=== PATIENT | male | born 1940 | race Caucasian/White ===

== ENCOUNTER 2018-11-25 12:36 | Emergency (ER) | payer MEDICARE ==
[~2018-11-25] VITALS: Ht 177.8 cm; Wt 115.9 kg
[~2018-11-25 12:36] MED LIST: ALBU6.7H9 INH; ASPI-1265 PO; ATOR40TA PO; CA C1TAB69 PO; CARV-50 PO; CITA20TA28 PO; LOSA1TAB41 PO; METF500T PO; NOR5T PO; [UNRECOGNIZED DRUG - CODE] PO
[2018-11-25] MEDS ORDERED: normal saline 1000ML IV soln IVB ONE (13:15)
[2018-11-25 13:52] LABS: CLARITY,URINE CLEAR (Clear); COLOR,URINE YELLOW (Yellow); GLUCOSE, URINE NEGATIVE (Neg); KETONES,URINE NEGATIVE (Neg); LEUKOCYTE ESTERASE ,URINE NEGATIVE (Neg); NITRITES, URINE NEGATIVE (Neg); OCCULT BLOOD,URINE NEGATIVE (Neg); PROTEIN,URINE NEGATIVE (Neg); UROBILINOGEN,URINE 0.2 E.U/dL (0.2-1.0)
[2018-11-25 13:53] LABS: UA COLLECTION TYPE URINAL
[2018-11-25 13:55] LABS: BASOPHILS % (AUTO) 0.5 % (0-1); EOSINOPHILS # (AUTO) 0.2 X10'3 (0-0.9); EOSINOPHILS % (AUTO) 3.5 % (0-6); HEMATOCRIT 44.8 % (42.0-52.0); LYMPHOCYTES # (AUTO) 1.5 X10'3 (1.1-4.8); MEAN CORPUSCULAR HEMOGLOBIN 28.7 PG (27.0-31.0); MEAN CORPUSCULAR HGB CONC 33.4 g/dL (33.0-36.5); MEAN CORPUSCULAR VOLUME 85.9 FL (78-98); MEAN PLATELET VOLUME 7.8 FL (7.4-10.4); MONOCYTES # (AUTO) 0.5 X10'3 (0-0.9); MONOCYTES % (AUTO) 8.3 % (2-12); NEUTROPHILS # (AUTO) 4.1 X10'3 (1.8-7.7); NEUTROPHILS % (AUTO) 64.7 % (42-75); PLATELET COUNT 181 X10'3 (140-440); RED BLOOD COUNT 5.21 X10'6 (4.70-6.10); WHITE BLOOD COUNT 6.4 X10'3 (4.5-11.0)
[2018-11-25 14:18] LABS: URINE AMPHETAMINE SCREEN NEGATIVE (Neg); URINE BARBITUATE SCREEN NEGATIVE (Neg); URINE BENZODIAZEPINES SCREEN NEGATIVE (Neg); URINE CANNABINOID SCREEN NEGATIVE (Neg); URINE COCAINE SCREEN NEGATIVE (Neg); URINE METHADONE SCREEN NEGATIVE (Neg); URINE OPIATE SCREEN NEGATIVE (Neg); URINE PHENCYCLIDINE SCREEN NEGATIVE (Neg)
[2018-11-25 14:19] LABS: ALANINE AMINOTRANSFERASE 30 U/L (12-78); ALBUMIN 3.8 G/DL (3.4-5.0); ALBUMIN/GLOBULIN RATIO 1.1 (1.1-1.5); ALKALINE PHOSPHATASE 70 IU/L (46-116); ANION GAP 12 (8-16); ASPARTATE AMINO TRANSFERASE 8 U/L (10-37); BILIRUBIN,TOTAL 0.4 MG/DL (0.1-1.0); BLOOD UREA NITROGEN 19 MG/DL (7-18); BUN/CREATININE RATIO 14.8 (5.4-32.0); CALCIUM 8.5 MG/DL (8.5-10.1); CHLORIDE 105 MMOL/L (99-107); CREATININE 1.28 MG/DL (0.60-1.10); GLUCOSE 164 MG/DL (70-104); POTASSIUM 4.2 MMOL/L (3.5-5.1); SODIUM 142 MMOL/L (135-145); TOTAL PROTEIN 7.3 G/DL (6.4-8.2); eGFR 54 ML/MIN
[2018-11-25 14:30] LABS: ETHANOL < 0.010 GM/DL (0.0-0.010); MAGNESIUM 1.8 MG/DL (1.5-2.4); PHOSPHORUS 3.4 MG/DL (2.3-4.5)
[2018-11-25] MEDS ORDERED: CARV-50 PO (15:55)
[2018-11-25] MEDS ORDERED: EFF25T PO (15:55)
[2018-11-25] MEDS ORDERED: ALPR-624 PO (15:55)
[2018-11-25] MEDS ORDERED: LOSA25TA96 PO (15:55)
--- NOTE | 2018-11-25 16:27 | NUR ---
Spoke with pts son Reji. Pt had tried to call his son earlier and son had missed call. Report from his son whom lives in [place] reports pt has been having increase in confusion and states that pt tolled him approx 6-8 months ago that [facility] begining onset of [facility]. Family relates that pt has no family here in this area and pt was previously living with other family but pt and family had a "fall out" and pt then had moved over here. Pts son Reji left his phone number:
--- NOTE | 2018-11-25 19:26 | NUR ---
assumed care of pt resting comfortably on his back all vss no s/s of distress . COntente poc updated. pt brother is Noel Ferrell [facility] at [phone] mobile [phone]
--- NOTE | 2018-11-25 20:12 | NUR ---
The patient moved from 14 to overflow room 21. He ambulated to room accompanied by Benoit OLVERA
[2018-11-25] MEDS ORDERED: atorvastatin 20mg tablet PO SCH (21:00)
[2018-11-25] MEDS ORDERED: ALPRAZolam 0.5mg tablet PO PRN (21:00)
--- NOTE | 2018-11-25 21:38 | NUR ---
Pt's wallet given to registration to place in safe.
--- NOTE | 2018-11-25 21:57 | NUR ---
The patient is sleeping on his right side. Breathing even and unlabored. No s/s of distress.
--- NOTE | 2018-11-26 00:24 | NUR ---
The patient woke to get a drink of water. He's laying down now with covers up to his chin.
--- NOTE | 2018-11-26 02:11 | NUR ---
The patient is lying on his left side. His eyes are closed and he appears to be asleep. Breathing is not labored. No s/s of distress.
--- NOTE | 2018-11-26 04:14 | NUR ---
Patient continues to sleep. Breathing unlabored. No s/s of distress.
[2018-11-26 05:40] VITALS: BP 175/107
--- NOTE | 2018-11-26 05:51 | NUR ---
The patient is sleeping on his left side.
--- NOTE | 2018-11-26 06:34 | NUR ---
Patient sleeping on right side. No distress observed. Continue to monitor.
[2018-11-26] MEDS ORDERED: carVEDilol 12.5mg tablet PO SCH (08:00)
[2018-11-26] MEDS ORDERED: [UNRECOGNIZED DRUG - REMARK] PO SCH (08:00)
[2018-11-26] MEDS ORDERED: aspirin 81mg tab.chew PO SCH (08:00)
[2018-11-26] MEDS ORDERED: losartan 50mg tablet PO SCH (08:00)
[2018-11-26] MEDS ORDERED: cyanocobalamin 500mcg tablet PO SCH (08:00)
[2018-11-26] MEDS ORDERED: venlafaxine XR 75mg capsule (Q24H) PO SCH (08:00)
[2018-11-26] MEDS ORDERED: metFORMIN 500mg tablet PO SCH (08:00)
--- NOTE | 2018-11-26 08:20 | NUR ---
RN awoken patient so he could eat breakfast and RN gave patient his medication. No distress observed. Patient sitting up and eating breakfast. Continue to monitor.
[2018-11-26] MEDS ORDERED: albuterol 2.5 MG/3 ML nebule NEB SCH (09:00)
--- NOTE | 2018-11-26 09:55 | NUR ---
Patient sleeping on right side. No distress observed. Continue to monitor.
--- NOTE | 2018-11-26 10:13 | NUR ---
Kathie from [facility] speaking with patient. Continue to monitor.
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
--- NOTE | 2018-11-26 11:55 | NUR ---
Patient sleeping on right side. No distress observed. Continue to monitor.
--- NOTE | 2018-11-26 13:55 | NUR ---
Patient's friend is taking patient home after he picks up his daughter from [employer]. Patient hanging out at nurses station. Patient is pleasant. No distress observed. Continue to monitor.
== END 2018-11-26 14:33 | disposition home or self-care (01) ==
LOC: ER 12:38
DX: F29 Unspecified psychosis not due to a substance or known physiological condition (principal); F41.9 Anxiety disorder, unspecified; M25.562 Pain in left knee; E78.00 Pure hypercholesterolemia, unspecified; I10 Essential (primary) hypertension; E11.9 Type 2 diabetes mellitus without complications; Z79.899 Other long term (current) drug therapy; Z79.82 Long term (current) use of aspirin; Z79.84 Long term (current) use of oral hypoglycemic drugs; Z86.79 Personal history of other diseases of the circulatory system; Z95.0 Presence of cardiac pacemaker; Z60.2 Problems related to living alone; Z87.09 Personal history of other diseases of the respiratory system
CPT/HCPCS: 36415; 70450; 80053; 80305; 80320; 81003; 83735; 84100; 84443; 84484; 85025; 85610; 93005; 99284

== ENCOUNTER 2018-12-21 05:46 | Emergency (ER) | payer MEDICARE ==
[~2018-12-21] VITALS: Ht 177.8 cm; Wt 120.0 kg
[~2018-12-21 05:46] MED LIST changes: +ALPR-624 PO; -CITA20TA28 PO; +EFF25T PO; -LOSA1TAB41 PO; +LOSA25TA96 PO; -NOR5T PO
[2018-12-21] MEDS ORDERED: nitroGLYCERIN 0.4mg/hour patch TD ONE (05:55)
[2018-12-21 06:15] LABS: BASOPHILS # (AUTO) 0.1 X10'3 (0-0.2); BASOPHILS % (AUTO) 0.8 % (0-1); EOSINOPHILS # (AUTO) 0.3 X10'3 (0-0.9); EOSINOPHILS % (AUTO) 4.1 % (0-6); HEMATOCRIT 44.6 % (42.0-52.0); HEMOGLOBIN 15.1 g/dl (14.0-17.9); LYMPHOCYTES # (AUTO) 1.7 X10'3 (1.1-4.8); LYMPHOCYTES % (AUTO) 27.6 % (21-51); MEAN CORPUSCULAR HEMOGLOBIN 28.9 PG (27.0-31.0); MEAN CORPUSCULAR HGB CONC 33.9 g/dL (33.0-36.5); MEAN CORPUSCULAR VOLUME 85.3 FL (78-98); MEAN PLATELET VOLUME 7.7 FL (7.4-10.4); MONOCYTES # (AUTO) 0.6 X10'3 (0-0.9); MONOCYTES % (AUTO) 9.3 % (2-12); NEUTROPHILS # (AUTO) 3.7 X10'3 (1.8-7.7); NEUTROPHILS % (AUTO) 58.2 % (42-75); PLATELET COUNT 208 X10'3 (140-440); RED BLOOD COUNT 5.22 X10'6 (4.70-6.10); WHITE BLOOD COUNT 6.3 X10'3 (4.5-11.0)
[2018-12-21 06:27] LABS: PARTIAL THROMBOPLASTIN TIME 27 SECONDS (22-32)
[2018-12-21 06:30] LABS: ALANINE AMINOTRANSFERASE 26 U/L (12-78); ALBUMIN 3.5 G/DL (3.4-5.0); ALBUMIN/GLOBULIN RATIO 0.9 (1.1-1.5); ALKALINE PHOSPHATASE 74 IU/L (46-116); ANION GAP 10 (8-16); ASPARTATE AMINO TRANSFERASE 15 U/L (10-37); BILIRUBIN,TOTAL 0.3 MG/DL (0.1-1.0); BLOOD UREA NITROGEN 16 MG/DL (7-18); CALCIUM 8.9 MG/DL (8.5-10.1); CHLORIDE 105 MMOL/L (99-107); CREATININE 1.45 MG/DL (0.60-1.10); GLUCOSE 161 MG/DL (70-104); POTASSIUM 3.9 MMOL/L (3.5-5.1); SODIUM 139 MMOL/L (135-145); TOTAL CARBON DIOXIDE 24.4 MMOL/L (24-32); TOTAL PROTEIN 7.2 G/DL (6.4-8.2); eGFR 47 ML/MIN
[2018-12-21 07:06] LABS: CLARITY,URINE CLEAR (Clear); COLOR,URINE YELLOW (Yellow); GLUCOSE, URINE NEGATIVE (Neg); KETONES,URINE NEGATIVE (Neg); LEUKOCYTE ESTERASE ,URINE NEGATIVE (Neg); NITRITES, URINE NEGATIVE (Neg); OCCULT BLOOD,URINE NEGATIVE (Neg); PROTEIN,URINE NEGATIVE (Neg); UA COLLECTION TYPE URINAL; UROBILINOGEN,URINE 0.2 E.U/dL (0.2-1.0)
[2018-12-21] MEDS ORDERED: meclizine 12.5mg tablet PO STA (07:35)
[2018-12-21] MEDS ORDERED: MECL-111 PO ×2 (07:38→07:41)
[2018-12-21 07:46] VITALS: BP 147/115
== END 2018-12-21 07:47 | disposition home or self-care (01) ==
LOC: ER 05:47
DX: H81.12 Benign paroxysmal vertigo, left ear (principal); E78.00 Pure hypercholesterolemia, unspecified; I10 Essential (primary) hypertension; I25.2 Old myocardial infarction; E11.9 Type 2 diabetes mellitus without complications; F41.9 Anxiety disorder, unspecified; Z95.0 Presence of cardiac pacemaker; Z79.82 Long term (current) use of aspirin; Z79.84 Long term (current) use of oral hypoglycemic drugs; Z79.899 Other long term (current) drug therapy; Z79.01 Long term (current) use of anticoagulants
CPT/HCPCS: 36415; 71045; 80053; 81003; 82948; 83735; 83880; 84484; 85025; 85610; 85730; 93005; 99284; J8597

== ENCOUNTER 2018-12-24 22:17 | Emergency (ER) | payer MEDICARE ==
[~2018-12-24] VITALS: Ht 177.8 cm; Wt 118.1 kg
[~2018-12-24 22:17] MED LIST changes: +MECL-111 PO
[2018-12-24] MEDS ORDERED: DIAZ2TAB PO (22:43)
[2018-12-24 23:11] VITALS: BP 138/67
== END 2018-12-24 23:00 | disposition home or self-care (01) ==
LOC: ER 22:18
DX: H81.10 Benign paroxysmal vertigo, unspecified ear (principal); E78.00 Pure hypercholesterolemia, unspecified; I10 Essential (primary) hypertension; I25.2 Old myocardial infarction; E11.9 Type 2 diabetes mellitus without complications; F41.9 Anxiety disorder, unspecified; Z79.899 Other long term (current) drug therapy; Z79.82 Long term (current) use of aspirin; Z95.0 Presence of cardiac pacemaker; Z60.2 Problems related to living alone
CPT/HCPCS: 82948; 99283

== ENCOUNTER 2018-12-27 09:40 | Emergency (ER) | payer MEDICARE ==
[~2018-12-27] VITALS: Ht 177.8 cm; Wt 118.2 kg
[~2018-12-27 09:40] MED LIST changes: +DIAZ2TAB PO
[2018-12-27 10:23] LABS: BASOPHILS % (AUTO) 0.5 % (0-1); EOSINOPHILS # (AUTO) 0.2 X10'3 (0-0.9); EOSINOPHILS % (AUTO) 3.5 % (0-6); HEMATOCRIT 45.3 % (42.0-52.0); HEMOGLOBIN 15.7 g/dl (14.0-17.9); LYMPHOCYTES # (AUTO) 1.5 X10'3 (1.1-4.8); LYMPHOCYTES % (AUTO) 23.3 % (21-51); MEAN CORPUSCULAR HEMOGLOBIN 29.4 PG (27.0-31.0); MEAN CORPUSCULAR HGB CONC 34.6 g/dL (33.0-36.5); MEAN CORPUSCULAR VOLUME 84.9 FL (78-98); MEAN PLATELET VOLUME 7.7 FL (7.4-10.4); MONOCYTES # (AUTO) 0.4 X10'3 (0-0.9); MONOCYTES % (AUTO) 6.5 % (2-12); NEUTROPHILS # (AUTO) 4.3 X10'3 (1.8-7.7); NEUTROPHILS % (AUTO) 66.2 % (42-75); PLATELET COUNT 195 X10'3 (140-440); RED BLOOD COUNT 5.33 X10'6 (4.70-6.10); RED CELL DISTRIBUTION WIDTH 14.2 % (11.5-14.5); WHITE BLOOD COUNT 6.5 X10'3 (4.5-11.0)
[2018-12-27 10:37] LABS: ALANINE AMINOTRANSFERASE 27 U/L (12-78); ALBUMIN 3.7 G/DL (3.4-5.0); ALKALINE PHOSPHATASE 72 IU/L (46-116); ANION GAP 7 (8-16); ASPARTATE AMINO TRANSFERASE 15 U/L (10-37); BILIRUBIN,TOTAL 0.4 MG/DL (0.1-1.0); BLOOD UREA NITROGEN 17 MG/DL (7-18); BUN/CREATININE RATIO 13.8 (5.4-32.0); CALCIUM 8.7 MG/DL (8.5-10.1); CHLORIDE 104 MMOL/L (99-107); CREATININE 1.23 MG/DL (0.60-1.10); GLUCOSE 165 MG/DL (70-104); POTASSIUM 4.1 MMOL/L (3.5-5.1); SODIUM 139 MMOL/L (135-145); TOTAL CARBON DIOXIDE 28.3 MMOL/L (24-32); TOTAL PROTEIN 7.5 G/DL (6.4-8.2); eGFR 57 ML/MIN
[2018-12-27 10:43] LABS: ETHANOL < 0.010 GM/DL (0.0-0.010)
--- NOTE | 2018-12-27 10:53 | NUR ---
pt is out having a ct
[2018-12-27] MEDS ORDERED: ROSU10TA2 PO (11:18)
[2018-12-27] MEDS ORDERED: METF500T PO (11:18)
[2018-12-27] MEDS ORDERED: MIRT7.5T11 PO (11:18)
[2018-12-27 11:29] LABS: URINE AMPHETAMINE SCREEN NEGATIVE (Neg); URINE BARBITUATE SCREEN NEGATIVE (Neg); URINE BENZODIAZEPINES SCREEN NEGATIVE (Neg); URINE CANNABINOID SCREEN NEGATIVE (Neg); URINE COCAINE SCREEN NEGATIVE (Neg); URINE METHADONE SCREEN NEGATIVE (Neg); URINE OPIATE SCREEN NEGATIVE (Neg); URINE PHENCYCLIDINE SCREEN NEGATIVE (Neg)
[2018-12-27] MEDS: venlafaxine XR 75mg capsule (Q24H) PO SCH (12:59)
[2018-12-27] MEDS: losartan 50mg tablet PO SCH (13:00)
[2018-12-27] MEDS: carVEDilol 12.5mg tablet PO SCH ×2 (13:00→21:37)
[2018-12-27] MEDS: metFORMIN 500mg tablet PO SCH (20:00)
[2018-12-27] MEDS ORDERED: mirtazapine 15mg tablet PO SCH (21:00)
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
--- NOTE | 2018-12-28 02:35 | NUR ---
Patient up to bathroom. He ambulates without problem. Patient consumed some H20 and returned to bed.
--- NOTE | 2018-12-28 05:16 | NUR ---
Patient sleeping quietly in view from nursing station.
[2018-12-28 05:48] VITALS: BP 176/90
--- NOTE | 2018-12-28 07:00 | NUR ---
Received pt asleep in bed without complaints or signs of distress.
[2018-12-28] MEDS ORDERED: aspirin 81mg tab.chew PO SCH (08:00)
[2018-12-28] MEDS ORDERED: vitamin D (cholecalciferol) 1,000 unit tablet PO SCH (08:00)
[2018-12-28] MEDS ORDERED: atorvastatin 10mg tablet PO SCH (08:00)
[2018-12-28] MEDS: metFORMIN 500mg tablet PO SCH (08:13)
[2018-12-28] MEDS: losartan 50mg tablet PO SCH (08:13)
[2018-12-28] MEDS: venlafaxine XR 75mg capsule (Q24H) PO SCH (08:13)
[2018-12-28] MEDS: carVEDilol 12.5mg tablet PO SCH (08:13)
--- NOTE | 2018-12-28 09:00 | NUR ---
Pt up for breakfast. Pt continues to endorse depression with vague S.I.
--- NOTE | 2018-12-28 11:00 | NUR ---
Pt fell back to sleep after breakfast.
--- NOTE | 2018-12-28 11:28 | NUR ---
patient is laying down. Awake, calm/cooperative.
--- NOTE | 2018-12-28 13:00 | NUR ---
Pt napping in bed without distress. No complaints.
--- NOTE | 2018-12-28 14:30 | NUR ---
[facility] office called and informed us that [facility] ([phone]) has accepted the pt. and will pick him up in about an hours. Dr. Bautista
--- NOTE | 2018-12-28 15:00 | NUR ---
Pt currently napping in bed, but was up after lunch interacting appropriately with staff and peers.
--- NOTE | 2018-12-28 15:45 | NUR ---
Patient's car is located in the parking lot. License Plate #: [id number] Description: Rohan Greene
--- NOTE | 2018-12-28 15:50 | NUR ---
Nurse to nurse hand off to Eder Robles.
== END 2018-12-28 16:00 ==
LOC: ER 09:41
DX: R45.851 Suicidal ideations (principal); R42 Dizziness and giddiness; E78.00 Pure hypercholesterolemia, unspecified; I10 Essential (primary) hypertension; I25.2 Old myocardial infarction; E11.9 Type 2 diabetes mellitus without complications; F41.9 Anxiety disorder, unspecified; Z95.0 Presence of cardiac pacemaker; Z60.2 Problems related to living alone; Z79.82 Long term (current) use of aspirin; Z79.84 Long term (current) use of oral hypoglycemic drugs; Z79.899 Other long term (current) drug therapy
CPT/HCPCS: 36415; 70450; 80053; 80305; 80320; 82948; 85025; 99285

== ENCOUNTER 2019-01-11 21:29 | Emergency (ER) | payer MEDICARE ==
[~2019-01-11] VITALS: Ht 175.3 cm; Wt 118.0 kg
[~2019-01-11 21:29] MED LIST changes: -ALBU6.7H9 INH; -ALPR-624 PO; -ATOR40TA PO; -DIAZ2TAB PO; -MECL-111 PO; +MIRT7.5T11 PO; +ROSU10TA2 PO; -[UNRECOGNIZED DRUG - CODE] PO
[2019-01-11 22:52] LABS: BASOPHILS % (AUTO) 0.5 % (0-1); EOSINOPHILS # (AUTO) 0.3 X10'3 (0-0.9); EOSINOPHILS % (AUTO) 2.9 % (0-6); HEMATOCRIT 44.7 % (42.0-52.0); HEMOGLOBIN 15.5 g/dl (14.0-17.9); LYMPHOCYTES % (AUTO) 22.2 % (21-51); MEAN CORPUSCULAR HEMOGLOBIN 29.2 PG (27.0-31.0); MEAN CORPUSCULAR HGB CONC 34.7 g/dL (33.0-36.5); MEAN CORPUSCULAR VOLUME 84.3 FL (78-98); MEAN PLATELET VOLUME 7.7 FL (7.4-10.4); MONOCYTES # (AUTO) 0.7 X10'3 (0-0.9); MONOCYTES % (AUTO) 7.8 % (2-12); NEUTROPHILS % (AUTO) 66.6 % (42-75); PLATELET COUNT 203 X10'3 (140-440); RED CELL DISTRIBUTION WIDTH 14.2 % (11.5-14.5); WHITE BLOOD COUNT 9.1 X10'3 (4.5-11.0)
[2019-01-11 23:02] LABS: ALANINE AMINOTRANSFERASE 24 U/L (12-78); ALBUMIN 3.9 G/DL (3.4-5.0); ALBUMIN/GLOBULIN RATIO 1.1 (1.1-1.5); ALKALINE PHOSPHATASE 80 IU/L (46-116); ANION GAP 10 (8-16); ASPARTATE AMINO TRANSFERASE 12 U/L (10-37); BILIRUBIN,TOTAL 0.3 MG/DL (0.1-1.0); BLOOD UREA NITROGEN 20 MG/DL (7-18); BUN/CREATININE RATIO 16.1 (5.4-32.0); CALCIUM 8.9 MG/DL (8.5-10.1); CHLORIDE 103 MMOL/L (99-107); CREATININE 1.24 MG/DL (0.60-1.10); GLUCOSE 105 MG/DL (70-104); POTASSIUM 3.6 MMOL/L (3.5-5.1); SODIUM 142 MMOL/L (135-145); TOTAL CARBON DIOXIDE 28.7 MMOL/L (24-32); TOTAL PROTEIN 7.3 G/DL (6.4-8.2); eGFR 56 ML/MIN
[2019-01-11 23:25] LABS: ACETAMINOPHEN < 2.0 UG/ML (10-30); ETHANOL < 0.010 GM/DL (0.0-0.010)
[2019-01-11 23:34] LABS: URINE AMPHETAMINE SCREEN NEGATIVE (Neg); URINE BARBITUATE SCREEN NEGATIVE (Neg); URINE BENZODIAZEPINES SCREEN NEGATIVE (Neg); URINE CANNABINOID SCREEN NEGATIVE (Neg); URINE COCAINE SCREEN NEGATIVE (Neg); URINE METHADONE SCREEN NEGATIVE (Neg); URINE OPIATE SCREEN NEGATIVE (Neg); URINE PHENCYCLIDINE SCREEN NEGATIVE (Neg)
--- NOTE | 2019-01-11 23:51 | NUR ---
Miriam Note: Pt. ambulated over from main ER accompainied by Tech. RR even and unlabored and he presents as pleasant and cooperative.
--- NOTE | 2019-01-12 00:30 | NUR ---
Nursing Note: Completed pt. admission assessments at bedside, pt. presents as animated and cooperative with the process, however he has difficulty hearing out of his left ear. He reports that he used to wear a hearing aide, but does not anymore. Speech and thought process are tangential, however pt. is able to be redirected. Pt. endorses S/I without a specific plan at this time, however reports that he has considered shooting himself, cutting his wrists, or jumping from a building. Pt. states, "I don't do it because I have a lot of people that I love. I gave my gun to my friend." He also reports a history of S/I with attempt to OD following his service in the [place]. Pt. reports V/AMADOR which involve seeing flashes of light. He reports stressors including the of both of his wives, a recent move to a new residence, and feeling like he needs help with medications. Per Dr. Power, pt. regularly sees a psychiatrist, and has Home Health set-up recently by [facility].
--- NOTE | 2019-01-12 01:30 | NUR ---
Patient's packet was sent to [facility] at 0130.
[2019-01-12] MEDS ORDERED: ALPR0.5T8 PO (01:39)
[2019-01-12] MEDS ORDERED: QUET25TA PO (01:39)
[2019-01-12] MEDS ORDERED: ROSU10TA28 PO (01:39)
[2019-01-12] MEDS ORDERED: MECL-111 PO (01:39)
[2019-01-12] MEDS ORDERED: MIRT15TA PO (01:39)
[2019-01-12] MEDS ORDERED: CHOL200052 PO (01:39)
[2019-01-12] MEDS ORDERED: [UNRECOGNIZED DRUG - CODE] PO (01:39)
[2019-01-12] MEDS ORDERED: [UNRECOGNIZED DRUG - OTHER] PO (01:39)
[2019-01-12] MEDS ORDERED: LOSA50TA64 PO (01:39)
[2019-01-12] MEDS ORDERED: METF500T PO (01:39)
[2019-01-12] MEDS ORDERED: CARV12.5 PO (01:39)
--- NOTE | 2019-01-12 02:32 | NUR ---
Pt. asleep on his left side at this time, rr even and unlabored, will continue to monitor.
--- NOTE | 2019-01-12 04:34 | NUR ---
Patient continues to sleep on his left side. Respirations are even and unlabored. Will continue to monitor.
--- NOTE | 2019-01-12 05:11 | NUR ---
Per Dr. Allred, pt. does not require accuchecks at this time although he is a diabetic, blood sugar effectively maintained on oral Metformin. Pt. reports that he does not perform accuchecks at home, will continue to monitor. Diet changed to carbohydrate controlled per MD order.
--- NOTE | 2019-01-12 05:58 | NUR ---
Pt. continues to sleep, laying on his back at this time, rr even and unlabored.
[2019-01-12] MEDS ORDERED: ALPRAZolam 0.5mg tablet PO PRN (06:00)
--- NOTE | 2019-01-12 06:39 | NUR ---
Nursing Note: Pt laying on L side, eyes closed, RR even and unlabored, no S&S of distress, will continue to monitor.
[2019-01-12] MEDS: carVEDilol 12.5mg tablet PO SCH ×2 (07:52→18:53)
[2019-01-12] MEDS: metFORMIN 500mg tablet PO SCH ×2 (07:52→17:43)
--- NOTE | 2019-01-12 07:55 | NUR ---
Nursing Note: Pt up to the restroom, gait slow, but steady. Fall risk education provided. Pt compliant with medication administration and assessment. No S&S of distress, will continue to monitor.
[2019-01-12] MEDS ORDERED: venlafaxine XR 75mg capsule (Q24H) PO SCH (08:00)
[2019-01-12] MEDS ORDERED: atorvastatin 20mg tablet PO SCH (08:00)
[2019-01-12] MEDS ORDERED: aspirin 81mg tablet.DR PO SCH (08:00)
[2019-01-12] MEDS ORDERED: QUEtiapine 25mg tablet PO SCH (08:00)
[2019-01-12] MEDS ORDERED: meclizine 12.5mg tablet PO SCH (08:00)
[2019-01-12] MEDS ORDERED: vitamin D (cholecalciferol) 1,000 unit tablet PO SCH (08:00)
[2019-01-12] MEDS ORDERED: losartan 50mg tablet PO SCH (08:00)
--- NOTE | 2019-01-12 09:00 | NUR ---
Nursing Note: Pt laying on R side, eyes closed, RR even and unlabored, no S&S of distress, will continue to monitor.
--- NOTE | 2019-01-12 09:51 | NUR ---
Pt lying on his right side, RR even and unlabored, no S/S of distress, will continue to monitor.
--- NOTE | 2019-01-12 11:03 | NUR ---
Nursing Note: Pt laying in bed. SHARIF Huff worker at bedside assessing pt. No S&S of distress, will continue to monitor.
--- NOTE | 2019-01-12 13:08 | NUR ---
pt eating lunch
--- NOTE | 2019-01-12 13:41 | NUR ---
Nursing Note: Pt laying in bed with his eyes closed, RR even and unlabored, no S&S of distress, will continue to monitor.
--- NOTE | 2019-01-12 14:44 | NUR ---
Nursing Note: Pt laying on his L side, eyes closed, RR even and unlabored, no S&S of distress, will continue to monitor.
--- NOTE | 2019-01-12 15:48 | NUR ---
Nursing Note: At 1545, notified by Annita from [facility] office that pt is accepted to [facility]. Will continue to monitor.
--- NOTE | 2019-01-12 16:46 | NUR ---
Nursing Note: Pt sitting sitting quietly on the edge of his bed. RR even and unlabored, no S&S of distress, will continue to monitor.
--- NOTE | 2019-01-12 17:29 | NUR ---
Nursing Note: At 1700, pt reported having 3/10 chest pain lasting for one minute that he states, "feels like a burp." He denies radiation of pain or nausea. EKG performed, Dr. Tran read and signed EKG. No further orders received at this time. Pt now laying in bed with his eyes closed, no S&S of distress, will continue to monitor.
--- NOTE | 2019-01-12 18:40 | NUR ---
Assumed care of pt., pt. eating dinner at the beginning of the shift and now laying in bed, rr even and unlabored.
--- NOTE | 2019-01-12 19:00 | NUR ---
Completed 1:1 at bedside, pt. currently denies S/I at this time and reports that he feels that his anxiety and depression are better. However, pt. is still reporting V/AMADOR of, "White flashes of light." BP reassessed and remains slightly elevated, scheduled BP medication administered and will reassess. Pt. educated by this technical writer and editor that he will be going upstairs to [facility], and he reports contentment. Awaiting notification for [facility] in order to discharge.
--- NOTE | 2019-01-12 19:30 | NUR ---
Rechecked pt's BP and WNL, will continue to monitor
[2019-01-12 19:47] VITALS: BP 160/88
[2019-01-12] MEDS ORDERED: mirtazapine 15mg tablet PO SCH (21:00)
== END 2019-01-12 19:53 ==
LOC: ER 21:29
DX: R45.851 Suicidal ideations (principal); R20.0 Anesthesia of skin; E78.00 Pure hypercholesterolemia, unspecified; I10 Essential (primary) hypertension; I25.2 Old myocardial infarction; Z95.0 Presence of cardiac pacemaker; Z87.891 Personal history of nicotine dependence; Z60.2 Problems related to living alone
CPT/HCPCS: 36415; 80053; 80305; 80320; 80329; 85025; 93005; 99285; J8597

== ENCOUNTER 2019-01-12 17:50 | Inpatient (IN) | payer MEDICARE ==
[~2019-01-12] VITALS: Ht 175.3 cm; Wt 114.3 kg
[~2019-01-12 17:50] MED LIST changes: +ALPR0.5T8 PO; +CARV12.5 PO; +CHOL200052 PO; +LOSA50TA64 PO; +MECL-111 PO; +MIRT15TA PO; +QUET25TA PO; +ROSU10TA28 PO; +[UNRECOGNIZED DRUG - CODE] PO; +[UNRECOGNIZED DRUG - OTHER] PO
[2019-01-12 20:00] VITALS: BP 172/87
[2019-01-12] MEDS ORDERED: loperamide 2mg capsule PO PRN (21:25)
[2019-01-12] MEDS ORDERED: acetaminophen 325mg tablet PO PRN ×2 (21:25)
[2019-01-12] MEDS ORDERED: LORazepam 1 MG tablet PO PRN (21:30)
[2019-01-12] MEDS ORDERED: hydrOXYzine 25 MG tablet PO PRN (21:30)
[2019-01-12] MEDS ORDERED: magnesium hydroxide 30ml (MOM) UD suspension PO PRN (21:30)
[2019-01-12] MEDS ORDERED: mag hydrox/Alum hydrox/simeth 30ml oral suspension PO PRN (21:30)
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
[2019-01-13] MEDS ORDERED: ALPRAZolam 0.5mg tablet PO PRN (07:30)
[2019-01-13] MEDS ORDERED: metFORMIN 500mg tablet PO ONE (07:45)
[2019-01-13 08:00] VITALS: BP 148/92
[2019-01-13] MEDS: aspirin 81mg tablet.DR PO SCH (08:12)
[2019-01-13] MEDS: QUEtiapine 25mg tablet PO SCH ×2 (08:12→20:44)
[2019-01-13] MEDS: atorvastatin 20mg tablet PO SCH (08:12)
[2019-01-13] MEDS: carVEDilol 12.5mg tablet PO SCH ×2 (08:13→20:44)
[2019-01-13] MEDS: vitamin D (cholecalciferol) 1,000 unit tablet PO SCH (08:13)
[2019-01-13] MEDS: meclizine 12.5mg tablet PO SCH (08:13)
[2019-01-13] MEDS: venlafaxine XR 75mg capsule (Q24H) PO SCH (08:13)
[2019-01-13] MEDS: losartan 50mg tablet PO SCH (08:13)
[2019-01-13 09:16] LABS: HEMOGLOBIN A1C 7.1 % (4.5-6.2)
[2019-01-13 09:25] LABS: CHOL/HDL RATIO 5.6 (0.00-4.99); CHOLESTEROL 195 MG/DL (0-200); HDL CHOLESTEROL 35 MG/DL (35-60); LDL CHOLESTEROL 132 MG/DL (50-100); TRIGLYCERIDES 171 MG/DL (20-135)
--- NOTE | 2019-01-13 16:16 | NUR ---
Nursing Progress Note: Legal hold: 5150 Client on involuntary status for DTS Report received from nurse with use of LILA Johnson RN Why are they here: Patient is a 78-year-old male who presented to the ED complaining of suicidal ideation that has been ongoing for the last 2 months. In the ER the patient stated that he didn't know why he was here. Patient stated that he doesn't want to and is afraid he will. Patient's stated that he gave away his gun because of this. He lives alone. Patient states that he doesn't want to hurt himself or others. Patient stated that he takes medication but did not take anything today. He drove himself here. Patient sees a psychiatrist at the [facility]. Patient has a daughter and granddaughter who live in [place]. 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 Pt stated that he lives in a place that provides 3 meals per day up on [address] but he does not have help with medications. Pt stated that he thinks he got them mixed up the other day when he was filling his pill container. He stated that a nice nurse at [facility] gave him a phone number to call to get someone to come in and help him organize his meds, that he called twice but no one answered. Pt admits that his memory is not as good as it used to be that he has noticed a difference lately in the level of forgetfulness. Pt's [facility] memory is intact. Pt was A/O X 4. Pt has a good sense of humor, smiled frequently during mental health assessment. Pt said, "I think you should bring me to the TV room at 1000, there's a football game on." Pt also remarked, "if Davis Diaz comes in, that's okay." Pt watched the football game in the Rec room. S/I, H/I: Pt denies A/VH: Pt denies Sleep: slept 6 hours per noc shift report ADL's: Independent Group attendance: yes Were meds taken: yes Any med S/E: none noted or reported Mental Status Exam Appearance: Clean, neat, dressed in green hospital scrubs, wears glasses Eye contact: Good Behavior: Calm, pleasant, cooperative, likes football, likes to make jokes Speech: Clear, audible, pt is [employer] Mood: Good Affect: Calm, friendly Thought process: intact, some forgetfulness, mild short term memory impairment Thought Content: wants to watch football, needs help with his meds, likes Davis Beasley Cognition: A/O X 4 Insight: Fair Judgment: Good Interventions PRN's used: None Therapeutic interventions: 1:1 assessment, establishment of rapport, active listening, therapeutic conversation, medication administration/education/monitoring, Q 15 min safety checks. Restraints/seclusion/emergency medication: N/A Justification of Continued Inpatient Treatment: Pt is depressed about getting older and not being able to do the things he used to do including organizing and keeping track of his medications. He needs crisis interruption and a safe discharge plan.
[2019-01-13] MEDS: metFORMIN 500mg tablet PO SCH (17:36)
[2019-01-13 19:51] VITALS: BP 160/84
[2019-01-13] MEDS: mirtazapine 15mg tablet PO SCH (20:44)
--- NOTE | 2019-01-14 00:02 | NUR ---
Nursing Progress Note: Legal hold: 5150 Client on involuntary status for DTS Report received from nurse with use of Devorah SHARP RN Why are they here: Patient is a 78-year-old male who presented to the ED complaining of suicidal ideation that has been ongoing for the last 2 months. In the ER the patient stated that he didn't know why he was here. Patient stated that he doesn't want to and is afraid he will. Patient's stated that he gave away his gun because of this. He lives alone. Patient states that he doesn't want to hurt himself or others. Patient stated that he takes medication but did not take anything today. He drove himself here. Patient sees a psychiatrist at the [facility]. Patient has a daughter and granddaughter who live in [place]. Patient also has a son who is an "alcoholic and a drunk." Patient notes that he "use to" know how to sort his medications but no longer is able to and "just guesses." Assessment What has happened this shift: Patient is socializing with others and watching football game on television. He is well oriented, he is hard of hearing. Patient smiles and communicates well with others. Patient smiles and jokes with patients and staff. His mood is upbeat. He states the food is good here. Patient states he isn't feeling suicidal at this time. He states his depression intermittent. Patient denies S/I, H/I, or hallucinations at this time. He is medication compliant. He ambulates with out problem At the time of interview this patient is without complaint. S/I, H/I: Pt denies. A/VH: Pt denies. Sleep:Will tally at 0500 hours. ADL's: Independent Group attendance: Yes, on day shift. Were meds taken:Yes, patient is medication compliant. Any med S/E: None noted or reported. Mental Status Exam Appearance: Clean, neat, dressed in green hospital scrubs, wears glasses. Eye contact: Good. Behavior: Calm, pleasant, good sense of humor. Speech: Clear, audible, normal rhythm and tone. Mood: Good. Affect: Calm, friendly, social. Thought process:Intact with short term memory loss. Thought Content: Enjoying sports on television and socialization with others. Cognition: A/O X 4. Insight: Fair. Judgment: Good. Interventions PRN's used: None Therapeutic interventions: 1:1 assessment, establishment of rapport, active listening, therapeutic conversation, medication administration/education/monitoring, Q 15 min safety checks. Restraints/seclusion/emergency medication: N/A Justification of Continued Inpatient Treatment: Pt is depressed about getting older and not being able to do the things he used to do including organizing and keeping track of his medications. He needs crisis interruption and a safe discharge plan.
[2019-01-14] MEDS: metFORMIN 500mg tablet PO SCH ×2 (07:40→17:00)
[2019-01-14] MEDS: meclizine 12.5mg tablet PO SCH (07:41)
[2019-01-14] MEDS: carVEDilol 12.5mg tablet PO SCH ×2 (07:41→20:33)
[2019-01-14] MEDS: atorvastatin 20mg tablet PO SCH (07:42)
[2019-01-14] MEDS: QUEtiapine 25mg tablet PO SCH ×2 (07:42→20:33)
[2019-01-14] MEDS: venlafaxine XR 75mg capsule (Q24H) PO SCH (07:42)
[2019-01-14] MEDS: losartan 50mg tablet PO SCH (07:42)
[2019-01-14] MEDS: aspirin 81mg tablet.DR PO SCH (07:42)
[2019-01-14] MEDS: vitamin D (cholecalciferol) 1,000 unit tablet PO SCH (07:42)
[2019-01-14 07:50] VITALS: BP 111/66
[2019-01-14] MEDS ORDERED: venlafaxine 25mg tablet PO ONE (09:35)
--- NOTE | 2019-01-14 09:49 | NUR ---
Pt with hx T2DM, current A1c is 7.0. Per PMH DM is controlled through diet and Metformin; pt receiving Metformin during admission. DM education not appropriate at this time. Pt currently on CHO controlled diet documented with 75-100% PO intake meeting nutrient needs. Will continue to follow. Addendum: 01/14/19 at [address] Amended: Links added.
--- NOTE | 2019-01-14 16:44 | NUR ---
Nursing Progress Note: Kuldip Kevenclifsarath Legal hold: 5150 Client on involuntary status for DTS Report received from CRN with use of SBAR Why are they here: Patient is a 78-year-old male who presented to the ED complaining of suicidal ideation that has been ongoing for the last 2 months. In the ER the patient stated that he didn't know why he was here. Patient stated that he doesn't want to and is afraid he will. Patient's stated that he gave away his gun because of this. He lives alone. Patient states that he doesn't want to hurt himself or others. Patient stated that he takes medication but did not take anything today. He drove himself here. Patient [facility] a [facility]. Patient has a daughter and granddaughter who live in [place]. Patient also has a son who is an "alcoholic and a drunk." Patient notes that he "use to" know how to sort his medications but no longer is able to and "just guesses." Assessment What has happened this shift: Patient was in bed with eyes closed to begin this shift. No somatic complaints during assessment and was compliant with medications. No s/s of hyper or hypo glycemia noted. Client came to breakfast and then went back to his room to rest. Client is hard of hearing. Client attended am group and lunch and then went to his room to rest. He is visible and appropriate on unit at 1520 hours today. Client is mildly disoriented AEB client asking others about going to Group after attending am group. Client redirects well and is not a behavioral challenge. No s/s of hyper or hypo glycemia noted this shift. S/I, H/I: Pt denies. A/VH: Pt denies. Sleep: 7.75 hours last shift. ADL's: Independent Group attendance: yes Were meds taken:Yes, patient is medication compliant. Any med S/E: None noted or reported. Mental Status Exam Appearance: Clean, neat, dressed in green hospital scrubs, wears glasses. Eye contact: Good. Behavior: Calm, pleasant, good sense of humor. Speech: Clear, audible, normal rhythm and tone. Mood: Good. Affect: Calm, friendly, social. Thought process:Intact with short term memory loss. Thought Content: Enjoying sports on television and socialization with others. Cognition: A/O X 4. Insight: Fair. Judgment: Good. Interventions PRN's used: None Therapeutic interventions: 1:1 assessment, establishment of rapport, active listening, therapeutic conversation, medication administration/education/monitoring, Q 15 min safety checks. Restraints/seclusion/emergency medication: N/A Justification of Continued Inpatient Treatment: Pt is depressed about getting older and not being able to do the things he used to do including organizing and keeping track of his medications. He needs crisis interruption and a safe discharge plan.
[2019-01-14 20:19] VITALS: BP 118/62
[2019-01-14] MEDS: mirtazapine 15mg tablet PO SCH (20:33)
--- NOTE | 2019-01-15 01:56 | NUR ---
Nursing Progress Note: Legal hold: 5150 Client on involuntary status for DTS Report received from nurse with use of Maxime SHARP RN Why are they here: Patient is a 78-year-old male who presented to the ED complaining of suicidal ideation that has been ongoing for the last 2 months. In the ER the patient stated that he didn't know why he was here. Patient stated that he doesn't want to and is afraid he will. Patient's stated that he gave away his gun because of this. He lives alone. Patient states that he doesn't want to hurt himself or others. Patient stated that he takes medication but did not take anything today. He drove himself here. Patient sees a psychiatrist at the [facility]. Patient has a daughter and granddaughter who live in [place]. Patient also has a son who is an "alcoholic and a drunk." Patient notes that he "use to" know how to sort his medications but no longer is able to and "just guesses." Assessment What has happened this shift: The patient was seen in the hallway. He was later met in his room for 1:1. The patient is calm and cooperative. He easily communicates with staff and other clients. Patient denies SI/HI, but endorses intermittent depression. He speaks clearly, but is disorganized. 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 S/I, H/I: Denies A/VH: Denies. Sleep: See sleep hours. ADL's: Independent Group attendance: No groups at night. Were meds taken: Yes Any med S/E: None noted or reported. Mental Status Exam Appearance: Clean, neat, dressed in green hospital scrubs, wears glasses. Eye contact: Good. Behavior: Calm, pleasant, good sense of humor. Speech: Clear. Mood: Good, irritable Affect: Friendly. Thought process: Intact with short term memory loss. Thought Content: Disorganized. Cognition: A/O X 4. Insight: Fair. Judgment: Good. Interventions PRN's used: None Therapeutic interventions: 1:1 assessment, establishment of rapport, active listening, therapeutic conversation, medication administration/education/monitoring, Q 15 min safety checks. Restraints/seclusion/emergency medication: N/A Justification of Continued Inpatient Treatment: Pt is depressed about getting older and not being able to do the things he used to do including organizing and keeping track of his medications. He needs crisis interruption and a safe discharge plan.
[2019-01-15 08:00] VITALS: BP 147/93
[2019-01-15] MEDS: atorvastatin 20mg tablet PO SCH (08:05)
[2019-01-15] MEDS: losartan 50mg tablet PO SCH (08:06)
[2019-01-15] MEDS: QUEtiapine 25mg tablet PO SCH ×2 (08:06→20:26)
[2019-01-15] MEDS: aspirin 81mg tablet.DR PO SCH (08:06)
[2019-01-15] MEDS: carVEDilol 12.5mg tablet PO SCH ×2 (08:06→20:26)
[2019-01-15] MEDS: metFORMIN 500mg tablet PO SCH ×2 (08:06→17:31)
[2019-01-15] MEDS: vitamin D (cholecalciferol) 1,000 unit tablet PO SCH (08:06)
[2019-01-15] MEDS: venlafaxine XR 75mg capsule (Q24H) PO SCH (08:06)
[2019-01-15] MEDS: meclizine 12.5mg tablet PO SCH (08:06)
[2019-01-15] MEDS ORDERED: QUET25TA34 PO (16:26)
[2019-01-15] MEDS ORDERED: MECL-111 PO (16:26)
[2019-01-15] MEDS ORDERED: CARV-50 PO (16:26)
[2019-01-15] MEDS ORDERED: ATOR20TA66 PO (16:26)
[2019-01-15] MEDS ORDERED: METF500T PO (16:26)
[2019-01-15] MEDS ORDERED: MIRT15TA8 PO (16:26)
[2019-01-15] MEDS ORDERED: VENL75CA61 PO (16:26)
[2019-01-15] MEDS ORDERED: LOSA50TA64 PO (16:26)
[2019-01-15 20:18] VITALS: BP 147/81
[2019-01-15] MEDS: mirtazapine 15mg tablet PO SCH (20:26)
--- NOTE | 2019-01-15 21:31 | NUR ---
Nursing Progress Note: Legal hold: 5150 Client on involuntary status for DTS Report received from Tesas LARSEN with use of SBAR Why are they here: Patient is a 78-year-old male who presented to the ED complaining of suicidal ideation that has been ongoing for the last 2 months. In the ER the patient stated that he didn't know why he was here. Patient stated that he doesn't want to and is afraid he will. Patient's stated that he gave away his gun because of this. He lives alone. Patient states that he doesn't want to hurt himself or others. Patient stated that he takes medication but did not take anything today. He drove himself here. Patient [facility]. Patient has a daughter and granddaughter who live in [place]. Patient also has a son who is an "alcoholic and a drunk." Patient notes that he "use to" know how to sort his medications but no longer is able to and "just guesses." Assessment What has happened this shift: Pt received asleep in bed. Pt pleasant upon approach. Pt says hes feeling better and he jokes with staff periodically throughout the day. Pt did attend groups and was cooperative with 1 to 1 with the activity therapist. S/I, H/I: Pt denies. A/VH: Pt denies. Sleep: 8.75 hours last shift. ADL's: Independent Group attendance: yes Were meds taken:Yes, patient is medication compliant. Any med S/E: None noted or reported. Mental Status Exam Appearance: Clean, neat, dressed in green hospital scrubs, wears glasses. Eye contact: Good. Behavior: Calm, pleasant, good sense of humor. Speech: Clear, audible, normal rhythm and tone. Mood: Good. Affect: Calm, friendly, social. Thought process:Intact with short term memory loss. Thought Content: Enjoying sports on television and socialization with others. Cognition: A/O X 4. Insight: Fair. Judgment: Good. Interventions PRN's used: None Therapeutic interventions: 1:1 assessment, establishment of rapport, active listening, therapeutic conversation, medication administration/education/monitoring, Q 15 min safety checks. Restraints/seclusion/emergency medication: N/A Justification of Continued Inpatient Treatment: Pt is depressed about getting older and not being able to do the things he used to do including organizing and keeping track of his medications. He needs crisis interruption and a safe discharge plan.
[2019-01-16 07:36] VITALS: BP 158/94
[2019-01-16] MEDS: venlafaxine XR 75mg capsule (Q24H) PO SCH (08:18)
[2019-01-16] MEDS: aspirin 81mg tablet.DR PO SCH (08:18)
[2019-01-16] MEDS: atorvastatin 20mg tablet PO SCH (08:19)
[2019-01-16] MEDS: carVEDilol 12.5mg tablet PO SCH (08:19)
[2019-01-16] MEDS: meclizine 12.5mg tablet PO SCH (08:19)
[2019-01-16] MEDS: metFORMIN 500mg tablet PO SCH (08:19)
[2019-01-16] MEDS: QUEtiapine 25mg tablet PO SCH (08:19)
[2019-01-16] MEDS: vitamin D (cholecalciferol) 1,000 unit tablet PO SCH (08:19)
[2019-01-16] MEDS: losartan 50mg tablet PO SCH (08:19)
--- NOTE | 2019-01-16 09:52 | NUR ---
Late Note for contact occurring on 01/15: SS met w/pt & finalized dcp with him. Per discussion, pt agreed to allow SS to contact [facility] to coordinate an aftercare plan for him. SS had t/c with [facility]'s fagot maker, per t/c pt is scheduled to be seen by [facility] psychiatrist on Thursday 01/18 @ 3:00 PM, SS also requested that a note be sent to provider so pt can access a Home Healthcare Aid & Attendant services as pt reports that he struggles to manage his meds and has no one to assist him at home with this task. fagot maker entered note for psychiatrist to order a home healthcare aid & attendant for pt. Pt & attending physician informed of aftercare plan. Plan: Pt awaiting d/c by attending physician. Nguyen Bergman LCSW Addendum: 01/16/19 at 0958 by Nguyen ANAYA Amended: Links added.
--- NOTE | 2019-01-16 10:11 | NUR ---
NURSING DISCHARGE NOTE The patient was discharged this morning. He left with all belongings, prescriptions and instructions. It is noted the patient was confused about where and how he gets his medications filled. All discharge instructions were explained in detail to patient. He was escorted to the parking lot by GILBERTO Rucker. He had trouble locating his car and walked up to two cars that were not his, his car was found by pressing the [place] fob. Per Alka, he stood in front of his car for awhile then got in but didn't know how to start the car. He did not drive away. This nurse was alerted to his behavior and went back down to ER parking lot to see if he was OK. He was sitting in his car with it running and looking at his discharge papers and talking about AA meetings and getting increasingly agitated and unable to answer simple questions. He was questioned by Sap Director Vincent, and eventually two other officers as well. He agreed to go into the ER to get checked. He was escorted into the ER by the 3 Officers.
--- NOTE | 2019-01-16 10:28 | NUR ---
SS met w/pt's RN who expressed concerns as pt appears to be disoriented this morning and is d/c-ing. SS reviewed chart in MDT, noted pt was previously referred to [facility] services, SS had t/c w/[facility], per t/c pt was d/c'd from their services on 01/14/19 as they were unable to make phone contact w/pt to initiate services, [facility] will re-open pt to services and requested a new referral. SS met w/pt to provide info re services, pt agreeable to referral, requesting for Nursing, Nursing & [facility]IR[facility] services. SS completed referral and attending physician signed order for HH services. Referral faxed to [facility] requesting that they contact pt today to schedule services. SS also had t[place]c with [place] & requested that pt's meds be bubble wrapped due to pt's struggling to manage them at this time. per t/c [place] does not do this. Nguyen Bergman LCSW Addendum: 01/16/19 at 1048 by Nguyen ANAYA Amended: Links added.
[2019-02-14] MEDS ORDERED: ROSU20TA31 PO (09:23)
[2019-02-19] MEDS ORDERED: MECL12.584 PO (11:47)
[2019-02-19] MEDS ORDERED: VENL75CA61 PO (11:47)
[2019-02-19] MEDS ORDERED: LOSA50TA64 PO (11:47)
[2019-02-19] MEDS ORDERED: METF-950 PO (11:47)
[2019-02-19] MEDS ORDERED: ATOR20TA66 PO (11:47)
[2019-02-19] MEDS ORDERED: CARV-50 PO (11:47)
[2019-02-19] MEDS ORDERED: MIRT15TA8 PO (11:47)
[2019-02-19] MEDS ORDERED: QUET25TA34 PO (11:47)
== END 2019-01-16 10:11 | disposition short-term general hospital (02) | DRG 885 ==
LOC: ADULT MH 19:45
PROVIDERS: ADMIT Psychiatry & Neurology Psychiatry; ATTEND Psychiatry & Neurology Psychiatry
DX: F33.1 Major depressive disorder, recurrent, moderate (principal); R45.851 Suicidal ideations; E11.9 Type 2 diabetes mellitus without complications; G47.30 Sleep apnea, unspecified; I49.5 Sick sinus syndrome; E78.00 Pure hypercholesterolemia, unspecified; E78.5 Hyperlipidemia, unspecified; I10 Essential (primary) hypertension; I25.2 Old myocardial infarction; Z79.84 Long term (current) use of oral hypoglycemic drugs; Z87.891 Personal history of nicotine dependence; Z95.0 Presence of cardiac pacemaker; Z79.899 Other long term (current) drug therapy; Z79.82 Long term (current) use of aspirin
CPT/HCPCS: 36415; 80053; 80061; 80305; 80320; 80329; 83036; 85025; 87081; 93005; J8597

== ENCOUNTER 2019-01-16 11:11 | Emergency (ER) | payer MEDICARE ==
[~2019-01-16] VITALS: Ht 177.8 cm; Wt 117.0 kg
[~2019-01-16 11:11] MED LIST changes: -ALPR0.5T8 PO; -ASPI-1265 PO; +ATOR20TA66 PO; -CA C1TAB69 PO; -CARV12.5 PO; -EFF25T PO; -LOSA25TA96 PO; -MIRT15TA PO; +MIRT15TA8 PO; -MIRT7.5T11 PO; -QUET25TA PO; +QUET25TA34 PO; -ROSU10TA2 PO; -ROSU10TA28 PO; +VENL75CA61 PO; -[UNRECOGNIZED DRUG - OTHER] PO
[2019-01-16 11:54] VITALS: BP 153/93
== END 2019-01-16 11:56 | disposition home or self-care (01) ==
LOC: ER 11:12
DX: R41.0 Disorientation, unspecified (principal); E78.00 Pure hypercholesterolemia, unspecified; I10 Essential (primary) hypertension; E11.9 Type 2 diabetes mellitus without complications; F41.9 Anxiety disorder, unspecified; I25.2 Old myocardial infarction; Z60.2 Problems related to living alone; Z95.0 Presence of cardiac pacemaker; Z79.82 Long term (current) use of aspirin; Z79.899 Other long term (current) drug therapy
CPT/HCPCS: 82948; 99281; 99282

== ENCOUNTER 2019-02-09 19:29 | Emergency (ER) | payer MEDICARE ==
[~2019-02-09] VITALS: Ht 177.8 cm; Wt 118.0 kg
--- NOTE | 2019-02-09 20:25 | NUR ---
PT ADMITTED THAT HE IS HAVING THOUGHTS OF HURTING HIMSELF BUT HAS NO DEFINITE PLAN. PT STATES HE LOST HIS SISTER WHO LIVED ON THE [facility], IDENTIFIED STRESSOR Addendum: 02/09/19 at 2027 by RPRATHER PROVIDER WAS NOTIFIED OF PT'S STATED SUICIDAL THOUGHTS
--- NOTE | 2019-02-09 20:26 | NUR ---
PT APPEARS SLIGHTLY DISORIENTED WHEN ASKED CERTAIN QUESTIONS, GAVE SOME ANSWERS THAT WERE NOT APPROPRIATE, HX OF MILD DEMENTIA LISTED ON OLD CHART
[2019-02-09 21:18] LABS: BASOPHILS % (AUTO) 0.6 % (0-1); EOSINOPHILS # (AUTO) 0.1 X10'3 (0-0.9); HEMATOCRIT 45.6 % (42.0-52.0); HEMOGLOBIN 15.7 g/dl (14.0-17.9); LYMPHOCYTES # (AUTO) 1.5 X10'3 (1.1-4.8); LYMPHOCYTES % (AUTO) 21.2 % (21-51); MEAN CORPUSCULAR HEMOGLOBIN 29.1 PG (27.0-31.0); MEAN CORPUSCULAR HGB CONC 34.4 g/dL (33.0-36.5); MEAN CORPUSCULAR VOLUME 84.7 FL (78-98); MONOCYTES # (AUTO) 0.7 X10'3 (0-0.9); MONOCYTES % (AUTO) 9.7 % (2-12); NEUTROPHILS # (AUTO) 4.6 X10'3 (1.8-7.7); NEUTROPHILS % (AUTO) 66.5 % (42-75); PLATELET COUNT 193 X10'3 (140-440); RED BLOOD COUNT 5.38 X10'6 (4.70-6.10); RED CELL DISTRIBUTION WIDTH 13.9 % (11.5-14.5)
[2019-02-09 21:31] LABS: ALANINE AMINOTRANSFERASE 28 U/L (12-78); ALBUMIN 3.8 G/DL (3.4-5.0); ALBUMIN/GLOBULIN RATIO 1.2 (1.1-1.5); ALKALINE PHOSPHATASE 72 IU/L (46-116); ANION GAP 9 (8-16); ASPARTATE AMINO TRANSFERASE 16 U/L (10-37); BILIRUBIN,TOTAL 0.6 MG/DL (0.1-1.0); BLOOD UREA NITROGEN 14 MG/DL (7-18); BUN/CREATININE RATIO 10.7 (5.4-32.0); CALCIUM 8.8 MG/DL (8.5-10.1); CHLORIDE 104 MMOL/L (99-107); CREATININE 1.31 MG/DL (0.60-1.10); GLUCOSE 140 MG/DL (70-104); POTASSIUM 3.8 MMOL/L (3.5-5.1); SODIUM 140 MMOL/L (135-145); TOTAL CARBON DIOXIDE 26.8 MMOL/L (24-32); eGFR 53 ML/MIN
[2019-02-09 21:32] LABS: ETHANOL < 0.010 GM/DL (0.0-0.010)
[2019-02-09 21:46] LABS: CLARITY,URINE CLEAR (Clear); COLOR,URINE AMBER (Yellow); GLUCOSE, URINE NEGATIVE (Neg); KETONES,URINE NEGATIVE (Neg); LEUKOCYTE ESTERASE ,URINE NEGATIVE (Neg); NITRITES, URINE NEGATIVE (Neg); OCCULT BLOOD,URINE NEGATIVE (Neg); PROTEIN,URINE 30 mg/dl (Neg); UROBILINOGEN,URINE 0.2 E.U/dL (0.2-1.0)
[2019-02-09 21:47] LABS: UA COLLECTION TYPE VOIDED; URINE AMPHETAMINE SCREEN NEGATIVE (Neg); URINE BARBITUATE SCREEN NEGATIVE (Neg); URINE BENZODIAZEPINES SCREEN POSITIVE (Neg); URINE CANNABINOID SCREEN NEGATIVE (Neg); URINE COCAINE SCREEN NEGATIVE (Neg); URINE METHADONE SCREEN NEGATIVE (Neg); URINE OPIATE SCREEN NEGATIVE (Neg); URINE PHENCYCLIDINE SCREEN NEGATIVE (Neg)
--- NOTE | 2019-02-09 21:55 | NUR ---
Pt. ambulated independently over from main ER accompainied by RN. He presents as calm and cooperative, rr even and unlabored.
[2019-02-09 22:07] LABS: BACTERIA,URINE NONE SEEN /HPF (Neg); HYALINE CASTS >30 /LPF (NEGATIVE); MUCUS STRANDS MANY /LPF (Neg); RBC,URINE NONE SEEN /HPF (0-2); SQUAMOUS EPITHELIAL CELL,UR NONE SEEN /LPF (FEW); WBC,URINE 0-4 /HPF (0-4)
--- NOTE | 2019-02-09 22:26 | NUR ---
Attempted to complete Med Recc, however pt. is unable to accurtely remember medications or dosages r/t slight confusion. He reports that he has a full medication list which he left at home, but he did take all of his AM medications this morning. Pt. reports he uses the [place] pharmacy, will endorse to AM shift in order to complete Med Recc in the AM.
--- NOTE | 2019-02-09 22:34 | NUR ---
Pt. Friend: Noel Gaona , he works at [employer]
--- NOTE | 2019-02-09 22:48 | NUR ---
Nursing Note: Completed 1:1 at bedside, pt. is pleasant and cooperative, however thought process is circumstantial, and pt. presents as slightly confused. He states, My sister today, she took care of my kids when I was in [place], she had to take care of 7 kids! Pt. reports that he has no family close-by, but he dose have friends through the [employer] of which he is a member. Pt. states, Natalie been sober a long time and Natalie helped a lot of people. He denies any A/V H/A or delustions. Pt. reports that he is disabled and receives benefits, medical, and psychiatry services through the [facility]. However, he is unable to remember the name of his psychiatrist at this time. Pt. reports that he lives alone, and voices confusion about what medications he takes and the dosages. He admits that the place he lives at does provide him with meals, however lately he has been driving himself to eat to eat at the [employer]. Pt. provided with a snack and sits up in bed eating at this time, will continue to monitor.
[2019-02-09] MEDS ORDERED: QUET25TA PO (23:56)
[2019-02-09] MEDS ORDERED: VENL75TA90 PO (23:56)
[2019-02-09] MEDS ORDERED: CARV12.5 PO (23:56)
[2019-02-09] MEDS ORDERED: MIRT-66 PO (23:56)
[2019-02-09] MEDS ORDERED: ATOR40TA PO (23:56)
[2019-02-09] MEDS ORDERED: ASPI-1265 PO (23:56)
[2019-02-09] MEDS ORDERED: LOSA50TA3 PO (23:56)
[2019-02-09] MEDS ORDERED: CHOL200052 PO (23:56)
[2019-02-09] MEDS ORDERED: METF500T PO (23:56)
[2019-02-09] MEDS ORDERED: MECL-111 PO (23:56)
--- NOTE | 2019-02-10 00:01 | NUR ---
Pt. asleep at this time, laying on his back with HOB elevated, rr even and unlabored, will continue to monitor.
--- NOTE | 2019-02-10 02:05 | NUR ---
Pt. shah to sleep, laying on his left side at this time, appears to be resting comfortably.
--- NOTE | 2019-02-10 04:03 | NUR ---
Pt. continues to sleep at this time, rr even and unlabored, will continue to monitor.
--- NOTE | 2019-02-10 05:48 | NUR ---
Pt. sleeping on his rt. side at this time, rr remain even and unlabored, will continue to monitor.
--- NOTE | 2019-02-10 18:30 | NUR ---
Patient sleeping during shift change. In view from nurse station.
--- NOTE | 2019-02-10 19:30 | NUR ---
Patient is awake and well oriented. No distress. Patient exhibits what presents as mild dementia? Patient tells this teletypewriter operator that his sister yesterday. Patient states he felt suicidal, he did not have a plan. Patient tells this teletypewriter operator that he has intermittent depression and S/I for many years now. At the time of this writing the patient denies S/I. Patients voice is normal tone, normal rate and rhythm. Patient states minor depression only at this time. Patient is medication compliant. Normal affect and thought process. Patient states one suicidal attempt years ago, his plan to shoot himself. He had a gun but could not go through with the attempt. The patient is in no distress. He is in view from the nursing station. Patient is assured he is in a safe place. Patient exhibits understanding.
--- NOTE | 2019-02-10 20:30 | NUR ---
Patient now sleeping. In view from nursing station.
[2019-02-10] MEDS: carVEDilol 12.5mg tablet PO SCH (20:33)
[2019-02-10] MEDS: QUEtiapine 25mg tablet PO SCH (20:33)
--- NOTE | 2019-02-10 21:18 | NUR ---
Patient is awake, ambulates to bathroom and back. Resting in bed. In view from nursing station. Patient has warm blankets, fresh ice water. Patient is without complaint.
[2019-02-10] MEDS: mirtazapine 15mg tablet PO SCH (21:35)
--- NOTE | 2019-02-10 22:10 | NUR ---
Patient sleeping quietly on his left side.
--- NOTE | 2019-02-11 00:41 | NUR ---
Patient sleeping quietly on his left side. In view from nursing station.
--- NOTE | 2019-02-11 01:45 | NUR ---
Patient sleeping quietly.
--- NOTE | 2019-02-11 03:10 | NUR ---
Patient sleeping in low fowlers position.
--- NOTE | 2019-02-11 04:24 | NUR ---
Patient sleeping quietly on his right side. In view from nursing station.
[2019-02-11] MEDS: losartan 50mg tablet PO SCH (08:16)
[2019-02-11] MEDS: atorvastatin 20mg tablet PO SCH (08:16)
[2019-02-11] MEDS: QUEtiapine 25mg tablet PO SCH ×2 (08:16→20:18)
[2019-02-11] MEDS: vitamin D (cholecalciferol) 1,000 unit tablet PO SCH (08:16)
[2019-02-11] MEDS: meclizine 12.5mg tablet PO SCH (08:17)
[2019-02-11] MEDS: venlafaxine XR 75mg capsule (Q24H) PO SCH (08:17)
[2019-02-11] MEDS: carVEDilol 12.5mg tablet PO SCH ×2 (08:17→20:18)
[2019-02-11] MEDS: aspirin 81mg tab.chew PO SCH (08:17)
[2019-02-11] MEDS: metFORMIN 500mg tablet PO SCH ×2 (08:20→17:37)
--- NOTE | 2019-02-11 18:42 | NUR ---
Patient sitting at bedside eating dinner.
[2019-02-11] MEDS: mirtazapine 15mg tablet PO SCH (20:18)
--- NOTE | 2019-02-11 21:12 | NUR ---
The patient is sleeping on his left side. RR even and unlabored. No s/s of distress.
--- NOTE | 2019-02-11 23:38 | NUR ---
The patient is sleeping on his right side. RR even and unlabored. No s/s of distress.
--- NOTE | 2019-02-12 02:12 | NUR ---
The patient is sleeping on his left side. RR even and unlabored. No s/s of distress.
--- NOTE | 2019-02-12 04:57 | NUR ---
The patient continues to sleep.
--- NOTE | 2019-02-12 06:59 | NUR ---
Received report from night RN. Received Pt in bed sleeping w/o distress.
--- NOTE | 2019-02-12 07:22 | NUR ---
pt is laying on his back asleep. he does not appear to be in distress.
[2019-02-12] MEDS: vitamin D (cholecalciferol) 1,000 unit tablet PO SCH (08:06)
[2019-02-12] MEDS: losartan 50mg tablet PO SCH (08:06)
[2019-02-12] MEDS: venlafaxine XR 75mg capsule (Q24H) PO SCH (08:06)
[2019-02-12] MEDS: metFORMIN 500mg tablet PO SCH (08:06)
[2019-02-12] MEDS: carVEDilol 12.5mg tablet PO SCH (08:07)
[2019-02-12] MEDS: meclizine 12.5mg tablet PO SCH (08:07)
[2019-02-12] MEDS: QUEtiapine 25mg tablet PO SCH (08:07)
[2019-02-12] MEDS: aspirin 81mg tab.chew PO SCH (08:07)
[2019-02-12] MEDS: atorvastatin 20mg tablet PO SCH (08:07)
--- NOTE | 2019-02-12 09:55 | NUR ---
Pt awoke and ate breakfast and took AM meds w/o any issue. Continues to be depressed and endorse SI, yet is pleasant and cooperative. Pt currently resting in bed w/o distress.
[2019-02-12 12:29] VITALS: BP 164/99
[2019-02-12] MEDS ORDERED: ASPI-611 PO (17:34)
[2019-02-14] MEDS ORDERED: ROSU20TA31 PO (09:23)
== END 2019-02-12 12:36 ==
LOC: ER 19:30
DX: F41.9 Anxiety disorder, unspecified (principal); R45.851 Suicidal ideations; E78.00 Pure hypercholesterolemia, unspecified; I10 Essential (primary) hypertension; I25.2 Old myocardial infarction; E11.9 Type 2 diabetes mellitus without complications; Z79.82 Long term (current) use of aspirin; Z79.84 Long term (current) use of oral hypoglycemic drugs
CPT/HCPCS: 36415; 80053; 80305; 80320; 81001; 85025; 99285; J8597

== ENCOUNTER 2019-06-21 11:27 | Emergency (ER) | payer OTHER, MEDICARE ==
[~2019-06-21] VITALS: Ht 177.8 cm; Wt 110.0 kg
[~2019-06-21 11:27] MED LIST changes: +ASPI-611 PO; -MECL-111 PO; +MECL-183 PO; +METF-950 PO; -METF500T PO; -[UNRECOGNIZED DRUG - CODE] PO
[2019-06-21 13:08] LABS: BASOPHILS % (AUTO) 0.4 % (0-1); EOSINOPHILS # (AUTO) 0.2 X10'3 (0-0.9); EOSINOPHILS % (AUTO) 3.4 % (0-6); HEMATOCRIT 42.6 % (42.0-52.0); HEMOGLOBIN 14.5 g/dl (14.0-17.9); LYMPHOCYTES # (AUTO) 1.5 X10'3 (1.1-4.8); LYMPHOCYTES % (AUTO) 20.6 % (21-51); MEAN CORPUSCULAR VOLUME 85.4 FL (78-98); MEAN PLATELET VOLUME 7.7 FL (7.4-10.4); MONOCYTES # (AUTO) 0.7 X10'3 (0-0.9); MONOCYTES % (AUTO) 9.5 % (2-12); NEUTROPHILS # (AUTO) 4.8 X10'3 (1.8-7.7); NEUTROPHILS % (AUTO) 66.1 % (42-75); PLATELET COUNT 195 X10'3 (140-440); RED BLOOD COUNT 4.99 X10'6 (4.70-6.10); RED CELL DISTRIBUTION WIDTH 13.5 % (11.5-14.5); WHITE BLOOD COUNT 7.3 X10'3 (4.5-11.0)
[2019-06-21 13:33] LABS: BILIRUBIN,TOTAL 0.7 MG/DL (0.1-1.0); BLOOD UREA NITROGEN 15 MG/DL (7-18); CHLORIDE 102 MMOL/L (99-107); CREATININE 1.36 MG/DL (0.60-1.10); GLUCOSE 108 MG/DL (70-104); POTASSIUM 3.6 MMOL/L (3.5-5.1); SODIUM 139 MMOL/L (135-145); eGFR 51 ML/MIN
--- NOTE | 2019-06-21 13:47 | NUR ---
pt amb with steady gait from main ER to overflow, pt is quiet and cooperative, resp even and unlabored
[2019-06-21 13:50] LABS: ALANINE AMINOTRANSFERASE 26 U/L (12-78); ALBUMIN 3.8 G/DL (3.4-5.0); ALBUMIN/GLOBULIN RATIO 1.3 (1.1-1.5); ALKALINE PHOSPHATASE 53 IU/L (46-116); ANION GAP 7 (8-16); ASPARTATE AMINO TRANSFERASE 20 U/L (10-37); ETHANOL < 0.010 GM/DL (0.0-0.010); TOTAL CARBON DIOXIDE 29.9 MMOL/L (24-32); TOTAL PROTEIN 6.8 G/DL (6.4-8.2)
[2019-06-21 14:13] LABS: CLARITY,URINE CLEAR (Clear); COLOR,URINE YELLOW (Yellow); GLUCOSE, URINE NEGATIVE (Neg); KETONES,URINE NEGATIVE (Neg); LEUKOCYTE ESTERASE ,URINE NEGATIVE (Neg); NITRITES, URINE NEGATIVE (Neg); OCCULT BLOOD,URINE NEGATIVE (Neg); PH,URINE 6.5 (4.8-8.0); PROTEIN,URINE NEGATIVE (Neg); UROBILINOGEN,URINE 0.2 E.U/dL (0.2-1.0)
[2019-06-21 14:14] LABS: UA COLLECTION TYPE CLN CATCH MIDSTREAM
[2019-06-21 14:29] LABS: URINE AMPHETAMINE SCREEN NEGATIVE (Neg); URINE BARBITUATE SCREEN NEGATIVE (Neg); URINE BENZODIAZEPINES SCREEN NEGATIVE (Neg); URINE CANNABINOID SCREEN NEGATIVE (Neg); URINE COCAINE SCREEN NEGATIVE (Neg); URINE METHADONE SCREEN NEGATIVE (Neg); URINE OPIATE SCREEN NEGATIVE (Neg); URINE PHENCYCLIDINE SCREEN NEGATIVE (Neg)
--- NOTE | 2019-06-21 14:45 | NUR ---
pt is sleeping, easily arouseable, pt said he has been feeling anxious and panic attack for 2 weeks, pt hasn't been able to attend AA meetings since [place], usually goes 3-4times a week, recovering alcoholic since 1980, unable to exercise as well, "I feel good after swimming", pt used to do be very active, has no contact with his 3 children, "I am too old and just want to go", pt said he would shot himself in the head but his friend has his guns. Pt is calm, coopertive, tearful at times when talking, waiting to be evaluated by [facility]
[2019-06-21] MEDS ORDERED: cloNIDine 0.1 mg tablet PO ONE (15:05)
--- NOTE | 2019-06-21 15:18 | NUR ---
PACKET FAXED TO [facility]
--- NOTE | 2019-06-21 15:58 | NUR ---
pt is being evaluated by [facility] provider
--- NOTE | 2019-06-21 16:21 | NUR ---
gave pt yogurt, water, kalen crackers, nat well, no n/v
--- NOTE | 2019-06-21 17:54 | NUR ---
pt is resting quietly on bed
--- NOTE | 2019-06-21 18:37 | NUR ---
pt had dinner, nat well, no n/v
--- NOTE | 2019-06-21 18:43 | NUR ---
pt in restroom to brush teeth etc
--- NOTE | 2019-06-21 20:47 | NUR ---
pt is sleeping, resp even and unlabored
--- NOTE | 2019-06-21 21:37 | NUR ---
pt is sleeping
--- NOTE | 2019-06-21 22:04 | NUR ---
unable to do med rec, [place] med[place] and med list he has is incomplete,
--- NOTE | 2019-06-21 22:11 | NUR ---
Jayme dunn in ED - 06/21/19 at 2212 by MONA Patient is awake. She has taken her nasal canula off. This was placed back on the patient at 2 LPM by N/C. Patient directed to leave cannula in place.
--- NOTE | 2019-06-21 22:12 | NUR ---
This patient is sleeping quietly on his right side.
--- NOTE | 2019-06-21 23:49 | NUR ---
Patient is sleeping quietly on his right side. In view from nursing station.
--- NOTE | 2019-06-22 01:22 | NUR ---
Patient sleeping low fowlers position in bed.
--- NOTE | 2019-06-22 02:18 | NUR ---
Patient sleeping on his left side.
--- NOTE | 2019-06-22 03:02 | NUR ---
Patient awakens, ambulates to bathroom to void and back. Returns to sleep.
--- NOTE | 2019-06-22 05:44 | NUR ---
Patient sleeping on his right side. In view from nursing station.
--- NOTE | 2019-06-22 07:09 | NUR ---
sleeping on back respiration unlabored
--- NOTE | 2019-06-22 08:12 | NUR ---
asleep on left side
--- NOTE | 2019-06-22 09:10 | NUR ---
asleep on left side
--- NOTE | 2019-06-22 10:01 | NUR ---
sleeping on right side
--- NOTE | 2019-06-22 11:11 | NUR ---
asleep side lying
--- NOTE | 2019-06-22 12:05 | NUR ---
laying resting in bed
[2019-06-22] MEDS ORDERED: DOCU-148 PO (12:49)
[2019-06-22] MEDS ORDERED: ESCI20TA45 PO (12:49)
[2019-06-22] MEDS ORDERED: ASPI-1264 PO (12:49)
[2019-06-22] MEDS ORDERED: SENN-263 PO (12:49)
[2019-06-22] MEDS ORDERED: HYDR25TA4 PO (12:49)
[2019-06-22] MEDS ORDERED: LISI-600 PO (12:49)
[2019-06-22] MEDS ORDERED: METF500T PO (12:49)
[2019-06-22] MEDS ORDERED: ATOR40TA PO (12:50)
[2019-06-22] MEDS ORDERED: sennosides 8.6mg tablet PO PRN (13:00)
--- NOTE | 2019-06-22 13:09 | NUR ---
Patient pacing aruond to bed and back
[2019-06-22] MEDS: aspirin 325mg tablet PO SCH (13:19)
--- NOTE | 2019-06-22 14:25 | NUR ---
lying on side yaseminp
--- NOTE | 2019-06-22 15:01 | NUR ---
Having a conversation with tech and other patient
--- NOTE | 2019-06-22 16:06 | NUR ---
Patient walking around
--- NOTE | 2019-06-22 17:19 | NUR ---
chating with others
[2019-06-22] MEDS: metFORMIN 500mg tablet PO SCH (17:43)
--- NOTE | 2019-06-22 19:33 | NUR ---
This patient ambulated from his bed and sat down on a chair next to a juvenile patient and began talking to the patient. This group underwriter redirected the patient back to his bed and advised patient that there could be no social interaction between adults and children on this unit. The atient agreed to comply.
[2019-06-22] MEDS: docusate sod 100mg capsule PO SCH (19:38)
[2019-06-22] MEDS: traZODone 50mg tablet PO SCH (19:39)
[2019-06-22] MEDS: hydrOXYzine 25 MG tablet PO PRN (19:46)
[2019-06-22] MEDS: lisinopril 20mg tablet PO SCH (19:49)
[2019-06-22] MEDS: citalopram 20mg tablet PO SCH (21:00)
--- NOTE | 2019-06-22 21:00 | NUR ---
Patient is cooperative with staff and medication compliant. Mild anxiety present. Patient expresses despair about social isolation. He does exhibit some memory lapse which is not new. Patient returns to sleep.
--- NOTE | 2019-06-22 22:00 | NUR ---
Patient responded well to Atarax, his anxiety resolved. Trazadone has been effective for sleep.
--- NOTE | 2019-06-23 00:10 | NUR ---
Patient is sleeping quietly on his right side.
--- NOTE | 2019-06-23 01:51 | NUR ---
Patient sleeping on his left side in bed. W/D, good color. Resp are unlabored.
--- NOTE | 2019-06-23 05:11 | NUR ---
Patient is sleeping supine in bed.
--- NOTE | 2019-06-23 07:05 | NUR ---
asleep respiration unlabored
[2019-06-23] MEDS: HYDROchlorothiazide 25mg tablet PO SCH (08:12)
[2019-06-23] MEDS: metFORMIN 500mg tablet PO SCH ×2 (08:12→17:41)
[2019-06-23] MEDS: atorvastatin 20mg tablet PO SCH (08:12)
[2019-06-23] MEDS: aspirin 325mg tablet PO SCH (08:12)
[2019-06-23] MEDS: lisinopril 20mg tablet PO SCH ×2 (08:12→20:39)
[2019-06-23] MEDS: docusate sod 100mg capsule PO SCH ×2 (08:12→20:37)
--- NOTE | 2019-06-23 09:07 | NUR ---
asleep on side
--- NOTE | 2019-06-23 10:04 | NUR ---
resting in bed
--- NOTE | 2019-06-23 11:00 | NUR ---
Sleeping on side
[2019-06-23] MEDS: hydrOXYzine 25 MG tablet PO PRN (14:41)
--- NOTE | 2019-06-23 16:16 | NUR ---
pacing around unit
--- NOTE | 2019-06-23 18:47 | NUR ---
Reeived report and assumed care from YAZMIN Powers. The patient is stable with no complaints.
[2019-06-23] MEDS: citalopram 20mg tablet PO SCH (20:37)
[2019-06-23] MEDS: traZODone 50mg tablet PO SCH (20:37)
--- NOTE | 2019-06-23 21:03 | NUR ---
The patient has been medicated, and is now sleeping on his left side.
--- NOTE | 2019-06-23 22:08 | NUR ---
The patient is up to the bathroom. Denies needs
--- NOTE | 2019-06-24 00:12 | NUR ---
The patient is asleep on his left side. No s/s of distress.
--- NOTE | 2019-06-24 01:34 | NUR ---
The patient continues to sleep.
--- NOTE | 2019-06-24 02:49 | NUR ---
The patient used using the bathroom, and is now back to bed.
--- NOTE | 2019-06-24 04:18 | NUR ---
The patient is sleeping on his right side. Resp unlabored. No s/s of distress.
--- NOTE | 2019-06-24 05:49 | NUR ---
The patient is sleeping on his left side. Resp equal. No s/s of distress.
--- NOTE | 2019-06-24 06:45 | NUR ---
PT SLEEPING, NO S/S DISTRESS.
--- NOTE | 2019-06-24 07:45 | NUR ---
PT SLEEPING, NO S/S DISTRESS.
[2019-06-24] MEDS: lisinopril 20mg tablet PO SCH ×3 (08:00→20:17)
[2019-06-24] MEDS: HYDROchlorothiazide 25mg tablet PO SCH (08:14)
[2019-06-24] MEDS: aspirin 325mg tablet PO SCH (08:14)
[2019-06-24] MEDS: metFORMIN 500mg tablet PO SCH ×2 (08:14→17:37)
[2019-06-24] MEDS: docusate sod 100mg capsule PO SCH ×2 (08:14→20:17)
[2019-06-24] MEDS: atorvastatin 20mg tablet PO SCH (08:14)
--- NOTE | 2019-06-24 08:15 | NUR ---
PT AWAKE AND EATING BREAKFAST. PT IS COOPERATIVE. NO S/S DISTRESS.
--- NOTE | 2019-06-24 10:00 | NUR ---
Took over care of pt. He is currently sleeping on his right side.
--- NOTE | 2019-06-24 12:00 | NUR ---
Pt up to bathroom. Steady gait noted.
--- NOTE | 2019-06-24 14:00 | NUR ---
Pt ate all his lunch. He has walked around unit. Now back to bed, sleeping on his back.
--- NOTE | 2019-06-24 16:00 | NUR ---
Pt sleeping on right side.
[2019-06-24] MEDS ORDERED: acetaminophen 325mg tablet PO ONE (18:00)
--- NOTE | 2019-06-24 18:00 | NUR ---
Sitting up in bed eating dinner.
--- NOTE | 2019-06-24 19:11 | NUR ---
PT STATES HE HAS NEVER ATTEMPTED SUICIDE. BUT HE DOES WISH TO RIGHT NOW. IF HE HAD A GUN HE WOULD BLOW HIS HEAD OFF. HE STATES HE IS 79 YEARS OLD AND HAS LIVED HIS LIFE. THERE IS NOTHING LEFT
[2019-06-24] MEDS: citalopram 20mg tablet PO SCH (20:17)
[2019-06-24] MEDS: traZODone 50mg tablet PO SCH (20:17)
--- NOTE | 2019-06-25 06:47 | NUR ---
awake, resting in bed quietly. no issues or needs at this time.
[2019-06-25] MEDS: HYDROchlorothiazide 25mg tablet PO SCH (08:01)
[2019-06-25] MEDS: aspirin 325mg tablet PO SCH (08:01)
[2019-06-25] MEDS: metFORMIN 500mg tablet PO SCH ×2 (08:01→17:53)
[2019-06-25] MEDS: atorvastatin 20mg tablet PO SCH (08:01)
[2019-06-25] MEDS: lisinopril 20mg tablet PO SCH ×2 (08:01→20:59)
[2019-06-25] MEDS: docusate sod 100mg capsule PO SCH ×3 (08:01→20:59)
--- NOTE | 2019-06-25 08:30 | NUR ---
sitting up at side of bed eating breakfast quietly. administered meds. pt kind but appears to be depressed and hopeless feeling.
--- NOTE | 2019-06-25 10:09 | NUR ---
resting quietly in bed.
--- NOTE | 2019-06-25 12:58 | NUR ---
sitting up in bed eating lunch. calm.
--- NOTE | 2019-06-25 14:42 | NUR ---
resting quietly in bed. no needs at this time.
--- NOTE | 2019-06-25 15:53 | NUR ---
resting quietly in bed
--- NOTE | 2019-06-25 16:30 | NUR ---
snack provided per pt request. now resting quietly in bed.
[2019-06-25] MEDS: hydrOXYzine 25 MG tablet PO PRN (16:47)
--- NOTE | 2019-06-25 17:55 | NUR ---
calm and pleasant, resting in bed.
--- NOTE | 2019-06-25 19:00 | NUR ---
Pt eating dinner.
--- NOTE | 2019-06-25 20:00 | NUR ---
Pt up to restroom. Pt cooperative and making jokes.
[2019-06-25] MEDS: traZODone 50mg tablet PO SCH ×2 (20:50→20:59)
[2019-06-25] MEDS: citalopram 20mg tablet PO SCH (20:59)
--- NOTE | 2019-06-25 21:29 | NUR ---
Pt resting quietly in bed.
--- NOTE | 2019-06-25 22:00 | NUR ---
Pt resting quietly, respirations normal, no s/s of distress.
--- NOTE | 2019-06-25 23:05 | NUR ---
Pt resting quietly, respirations normal, no s/s of distress.
--- NOTE | 2019-06-26 01:00 | NUR ---
Pt resting quietly, respirations normal, no s/s of distress.
[2019-06-26] MEDS: hydrOXYzine 25 MG tablet PO PRN (01:35)
--- NOTE | 2019-06-26 02:00 | NUR ---
Pt awake, making bed.
--- NOTE | 2019-06-26 03:00 | NUR ---
Pt resting quietly, respirations normal, no s/s of distress.
--- NOTE | 2019-06-26 03:55 | NUR ---
Pt resting quietly, respirations normal, no s/s of distress.
--- NOTE | 2019-06-26 07:00 | NUR ---
Pt sleeping on his back.
[2019-06-26] MEDS: metFORMIN 500mg tablet PO SCH ×2 (07:59→17:38)
[2019-06-26] MEDS: lisinopril 20mg tablet PO SCH ×2 (07:59→20:37)
[2019-06-26] MEDS: atorvastatin 20mg tablet PO SCH (08:00)
[2019-06-26] MEDS: HYDROchlorothiazide 25mg tablet PO SCH (08:00)
[2019-06-26] MEDS: aspirin 325mg tablet PO SCH (08:00)
[2019-06-26] MEDS: docusate sod 100mg capsule PO SCH ×2 (08:00→20:33)
--- NOTE | 2019-06-26 09:00 | NUR ---
Pt woke up to eat breakfast and take his meds. He is calm and cooperative. Still feeling suicidal with plan to use his pistol. States his friend has his pistol and won't return it.
--- NOTE | 2019-06-26 11:00 | NUR ---
Stated did not sleep well last night and does not feel like talking.
--- NOTE | 2019-06-26 13:40 | NUR ---
Breaking primay RN, pt is supine in bed, regular breathing present, no s/s of distress observed
--- NOTE | 2019-06-26 15:00 | NUR ---
Pt still sleeping. Has been calm and cooperative all shift.
--- NOTE | 2019-06-26 17:00 | NUR ---
Up to bathroom. No needs at this time.
[2019-06-26] MEDS: citalopram 20mg tablet PO SCH (20:33)
[2019-06-26] MEDS: traZODone 50mg tablet PO SCH (20:37)
--- NOTE | 2019-06-27 06:27 | NUR ---
resting in bed quietly. no needs at this time.
--- NOTE | 2019-06-27 08:31 | NUR ---
sleeping on his back, snoring.
[2019-06-27] MEDS: lisinopril 20mg tablet PO SCH ×2 (10:21→20:28)
[2019-06-27] MEDS: aspirin 325mg tablet PO SCH (10:21)
[2019-06-27] MEDS: metFORMIN 500mg tablet PO SCH ×2 (10:21→18:02)
[2019-06-27] MEDS: docusate sod 100mg capsule PO SCH ×2 (10:22→20:25)
[2019-06-27] MEDS: HYDROchlorothiazide 25mg tablet PO SCH (10:22)
[2019-06-27] MEDS: atorvastatin 20mg tablet PO SCH (10:22)
--- NOTE | 2019-06-27 10:27 | NUR ---
awake, sitting on side of bed eating breakfast. pleasant, calm, and cooperative.
--- NOTE | 2019-06-27 11:32 | NUR ---
laying in bed resting.
--- NOTE | 2019-06-27 13:05 | NUR ---
woke up from nap, now sitting up on side of bed eating lunch.
--- NOTE | 2019-06-27 14:10 | NUR ---
[facility] reevaluated pt and placed him on another 7150. They are currently seekign placement options. Addendum: 06/27/19 at 1411 by ARIADNE pt calm and resting in bed.
--- NOTE | 2019-06-27 16:00 | NUR ---
Dr. Gilmore - psychologist with [facility] at bedside with pt.
--- NOTE | 2019-06-27 17:00 | NUR ---
pt walking around the unit, in good spirits, joking with staff. staff gave him a snack per his request. pt very pleasant, no signs of confusion or dementia. 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 seems to be in a much better mood than before.
--- NOTE | 2019-06-27 19:00 | NUR ---
Patient sitting up to side of the bed eating a snack after having eaten his dinner. Pt appears calm and has no s/s of distress. Will continue to monitor
--- NOTE | 2019-06-27 19:57 | NUR ---
Patient resting in bed with no s/s of distress
[2019-06-27] MEDS: citalopram 20mg tablet PO SCH (20:25)
[2019-06-27] MEDS: traZODone 50mg tablet PO SCH (20:26)
--- NOTE | 2019-06-27 21:00 | NUR ---
Pt resting comfortably in bed. No s/s of distress
--- NOTE | 2019-06-27 22:02 | NUR ---
Patient appears to be resting comfortably in bed
--- NOTE | 2019-06-27 23:05 | NUR ---
Pt appears to be resting comfortably in bed. No s/s of distress noted
--- NOTE | 2019-06-28 00:05 | NUR ---
Pt appears to be resting comfortably in bed. No apparent s/s of distress noted
--- NOTE | 2019-06-28 01:03 | NUR ---
Pt appears to be resting comfortably in bed. No apparent s/s of distress noted
--- NOTE | 2019-06-28 02:16 | NUR ---
Pt appears to be resting comfortably in bed. No apparent s/s of distress noted
--- NOTE | 2019-06-28 03:27 | NUR ---
Pt appears to be resting comfortably in bed. No apparent s/s of distress noted
--- NOTE | 2019-06-28 04:06 | NUR ---
Patient ambulated to restroom independently. Pt now back in bed and appears to be resting comfortably. No apparent s/s of distress noted
--- NOTE | 2019-06-28 05:02 | NUR ---
Pt appears to be resting comfortably in bed. No apparent s/s of distress noted
--- NOTE | 2019-06-28 07:00 | NUR ---
sleeping no signs of resp distress
[2019-06-28] MEDS: metFORMIN 500mg tablet PO SCH ×2 (07:55→17:27)
[2019-06-28] MEDS: HYDROchlorothiazide 25mg tablet PO SCH (07:55)
[2019-06-28] MEDS: aspirin 325mg tablet PO SCH (07:55)
[2019-06-28] MEDS: atorvastatin 20mg tablet PO SCH (07:55)
[2019-06-28] MEDS: docusate sod 100mg capsule PO SCH ×2 (07:55→20:12)
[2019-06-28] MEDS: lisinopril 20mg tablet PO SCH ×2 (07:55→20:12)
--- NOTE | 2019-06-28 08:16 | NUR ---
finshed eating now resting in bed
--- NOTE | 2019-06-28 12:01 | NUR ---
in the restroom
--- NOTE | 2019-06-28 15:06 | NUR ---
resting in bed
--- NOTE | 2019-06-28 16:15 | NUR ---
resting in bed
--- NOTE | 2019-06-28 17:01 | NUR ---
resting in bed
--- NOTE | 2019-06-28 17:53 | NUR ---
resting in bed
[2019-06-28] MEDS: traZODone 50mg tablet PO SCH (20:12)
[2019-06-28] MEDS: citalopram 20mg tablet PO SCH (20:12)
[2019-06-28] MEDS ORDERED: acetaminophen 325mg tablet PO PRN (22:55)
[2019-06-28] MEDS: LORazepam 1 MG tablet PO PRN (22:59)
[2019-06-29] MEDS: hydrOXYzine 25 MG tablet PO PRN (09:10)
[2019-06-29] MEDS: aspirin 325mg tablet PO SCH (09:10)
[2019-06-29] MEDS: lisinopril 20mg tablet PO SCH ×2 (09:10→20:37)
[2019-06-29] MEDS: HYDROchlorothiazide 25mg tablet PO SCH (09:11)
[2019-06-29] MEDS: atorvastatin 20mg tablet PO SCH (09:11)
[2019-06-29] MEDS: LORazepam 1 MG tablet PO PRN (09:11)
[2019-06-29] MEDS: metFORMIN 500mg tablet PO SCH ×2 (09:11→17:52)
[2019-06-29] MEDS: docusate sod 100mg capsule PO SCH ×2 (09:11→20:00)
--- NOTE | 2019-06-29 13:30 | NUR ---
Assumed care of pt while primary nurse on lunch break. Pt resting in [facility]. Will continue to monitor.
--- NOTE | 2019-06-29 19:00 | NUR ---
Pt returned dinner tray. Pt calm and cooperative.
--- NOTE | 2019-06-29 20:00 | NUR ---
Pt resting comfortably, respirations normal, no s/s of distress.
[2019-06-29] MEDS: citalopram 20mg tablet PO SCH (20:36)
[2019-06-29] MEDS: traZODone 50mg tablet PO SCH (20:36)
--- NOTE | 2019-06-29 21:00 | NUR ---
Pt resting comfortably, respirations normal, no s/s of distress.
--- NOTE | 2019-06-29 22:00 | NUR ---
Pt resting comfortably, respirations normal, no s/s of distress.
--- NOTE | 2019-06-29 23:00 | NUR ---
Pt resting comfortably, respirations normal, no s/s of distress.
--- NOTE | 2019-06-29 23:42 | NUR ---
Pt resting comfortably, respirations normal, no s/s of distress.
--- NOTE | 2019-06-30 | NUR ---
Pt resting comfortably, respirations normal, no s/s of distress.
--- NOTE | 2019-06-30 01:00 | NUR ---
Pt resting comfortably, respirations normal, no s/s of distress.
--- NOTE | 2019-06-30 02:00 | NUR ---
Pt resting comfortably, respirations normal, no s/s of distress.
--- NOTE | 2019-06-30 03:00 | NUR ---
Pt resting comfortably, respirations normal, no s/s of distress.
--- NOTE | 2019-06-30 04:00 | NUR ---
Pt resting comfortably, respirations normal, no s/s of distress.
--- NOTE | 2019-06-30 05:00 | NUR ---
Pt resting comfortably, respirations normal, no s/s of distress.
--- NOTE | 2019-06-30 05:37 | NUR ---
Pt resting comfortably, respirations normal, no s/s of distress.
--- NOTE | 2019-06-30 07:00 | NUR ---
pt is resting in bed
--- NOTE | 2019-06-30 08:00 | NUR ---
bp rechecked before med pass. bp 133/78
[2019-06-30] MEDS: HYDROchlorothiazide 25mg tablet PO SCH (08:13)
[2019-06-30] MEDS: docusate sod 100mg capsule PO SCH ×2 (08:14→20:00)
[2019-06-30] MEDS: aspirin 325mg tablet PO SCH (08:14)
[2019-06-30] MEDS: atorvastatin 20mg tablet PO SCH (08:14)
[2019-06-30] MEDS: lisinopril 20mg tablet PO SCH ×2 (08:14→19:58)
[2019-06-30] MEDS: metFORMIN 500mg tablet PO SCH ×2 (08:14→18:13)
--- NOTE | 2019-06-30 09:00 | NUR ---
pt resting in bed. no issues at this time
--- NOTE | 2019-06-30 10:00 | NUR ---
pt resting in bed. no issues at this time
--- NOTE | 2019-06-30 11:00 | NUR ---
pt resting in bed. no issues at this time
--- NOTE | 2019-06-30 12:00 | NUR ---
pt resting in bed. no issues at this time
--- NOTE | 2019-06-30 13:00 | NUR ---
pt resting in bed. no issues at this time
--- NOTE | 2019-06-30 14:00 | NUR ---
pt resting in bed. no issues at this time
--- NOTE | 2019-06-30 15:00 | NUR ---
pt resting in bed. no issues at this time
--- NOTE | 2019-06-30 16:00 | NUR ---
pt resting in bed. no issues at this time
--- NOTE | 2019-06-30 17:00 | NUR ---
pt resting in bed. no issues at this time
[2019-06-30] MEDS: traZODone 50mg tablet PO SCH (19:58)
[2019-06-30] MEDS: citalopram 20mg tablet PO SCH (19:58)
--- NOTE | 2019-06-30 20:00 | NUR ---
Pt set up with Zoom AA meeting on RN's phone. Seemed to really enjoy it
--- NOTE | 2019-06-30 22:12 | NUR ---
Pt awoke requesting his phone/on site soil evaluator/address book. Advised would talk to morning RN as it was past phone hours.
[2019-06-30] MEDS ORDERED: LORazepam 0.5 MG tablet PO PRN (22:35)
--- NOTE | 2019-06-30 22:42 | NUR ---
Given 0.5 mg PO Ativan for sleep aid
[2019-07-01 05:13] VITALS: BP_DIAS 72
--- NOTE | 2019-07-01 07:00 | NUR ---
Pt resting with eyes closed, effortless respirations observed.
[2019-07-01] MEDS: metFORMIN 500mg tablet PO SCH (08:15)
[2019-07-01] MEDS: atorvastatin 20mg tablet PO SCH (08:15)
[2019-07-01 08:16] VITALS: BP_SYST 137
[2019-07-01] MEDS: lisinopril 20mg tablet PO SCH (08:16)
[2019-07-01] MEDS: HYDROchlorothiazide 25mg tablet PO SCH (08:16)
[2019-07-01] MEDS: docusate sod 100mg capsule PO SCH (08:17)
[2019-07-01] MEDS: aspirin 325mg tablet PO SCH (08:17)
[2019-07-08] MEDS ORDERED: TRAZ-251 PO (15:38)
[2019-07-08] MEDS ORDERED: ESCI5TAB PO (15:38)
== END 2019-07-01 15:22 ==
LOC: ER 11:27
DX: R45.851 Suicidal ideations (principal); F03.90 Unspecified dementia, unspecified severity, without behavioral disturbance, psychotic disturbance, mood disturbance, and anxiety; E78.00 Pure hypercholesterolemia, unspecified; I10 Essential (primary) hypertension; I25.2 Old myocardial infarction; E11.9 Type 2 diabetes mellitus without complications; F41.9 Anxiety disorder, unspecified; Z95.0 Presence of cardiac pacemaker; Z60.2 Problems related to living alone; Z79.82 Long term (current) use of aspirin; Z79.899 Other long term (current) drug therapy
CPT/HCPCS: 36415; 70450; 80053; 80305; 80320; 81003; 82948; 84443; 85025; 99285; Z7610; Q0177

== ENCOUNTER 2019-07-13 16:41 | Emergency (ER) | payer OTHER, MEDICARE ==
[~2019-07-13] VITALS: Ht 177.8 cm; Wt 109.0 kg
[~2019-07-13 16:41] MED LIST changes: +ASPI-1264 PO; -ASPI-611 PO; -ATOR20TA66 PO; +ATOR40TA PO; -CARV-50 PO; -CHOL200052 PO; +DOCU-148 PO; +ESCI5TAB PO; +HYDR25TA4 PO; +LISI-600 PO; -LOSA50TA64 PO; -MECL-183 PO; -METF-950 PO; +METF500T PO; -MIRT15TA8 PO; -QUET25TA34 PO; +SENN-263 PO; +TRAZ-251 PO; -VENL75CA61 PO
--- NOTE | 2019-07-13 17:39 | NUR ---
pt states that he is having suicidal thoughts and would use a gun or get hit by a train but he has no access to a gun and "does not have the guts to go through with taking his life"
[2019-07-13 19:23] LABS: BASOPHILS % (AUTO) 0.2 % (0-1); EOSINOPHILS # (AUTO) 0.2 X10'3 (0-0.9); EOSINOPHILS % (AUTO) 3.1 % (0-6); HEMATOCRIT 45.8 % (42.0-52.0); HEMOGLOBIN 15.8 g/dl (14.0-17.9); LYMPHOCYTES # (AUTO) 1.8 X10'3 (1.1-4.8); LYMPHOCYTES % (AUTO) 24.8 % (21-51); MEAN CORPUSCULAR HEMOGLOBIN 29.6 PG (27.0-31.0); MEAN CORPUSCULAR HGB CONC 34.4 g/dL (33.0-36.5); MEAN PLATELET VOLUME 7.9 FL (7.4-10.4); MONOCYTES # (AUTO) 0.6 X10'3 (0-0.9); MONOCYTES % (AUTO) 8.8 % (2-12); NEUTROPHILS # (AUTO) 4.6 X10'3 (1.8-7.7); NEUTROPHILS % (AUTO) 63.1 % (42-75); PLATELET COUNT 198 X10'3 (140-440); RED BLOOD COUNT 5.33 X10'6 (4.70-6.10); RED CELL DISTRIBUTION WIDTH 13.9 % (11.5-14.5); WHITE BLOOD COUNT 7.3 X10'3 (4.5-11.0)
[2019-07-13 19:32] LABS: URINE AMPHETAMINE SCREEN NEGATIVE (Neg); URINE BARBITUATE SCREEN NEGATIVE (Neg); URINE BENZODIAZEPINES SCREEN NEGATIVE (Neg); URINE CANNABINOID SCREEN NEGATIVE (Neg); URINE COCAINE SCREEN NEGATIVE (Neg); URINE METHADONE SCREEN NEGATIVE (Neg); URINE OPIATE SCREEN NEGATIVE (Neg); URINE PHENCYCLIDINE SCREEN NEGATIVE (Neg)
[2019-07-13 19:34] LABS: ALANINE AMINOTRANSFERASE 31 U/L (12-78); ALBUMIN 4.1 G/DL (3.4-5.0); ALBUMIN/GLOBULIN RATIO 1.2 (1.1-1.5); ALKALINE PHOSPHATASE 71 IU/L (46-116); ANION GAP 8 (8-16); ASPARTATE AMINO TRANSFERASE 19 U/L (10-37); BILIRUBIN,TOTAL 0.8 MG/DL (0.1-1.0); BLOOD UREA NITROGEN 17 MG/DL (7-18); BUN/CREATININE RATIO 13.6 (5.4-32.0); CALCIUM 9.2 MG/DL (8.5-10.1); CHLORIDE 102 MMOL/L (99-107); CREATININE 1.25 MG/DL (0.60-1.10); ETHANOL < 0.010 GM/DL (0.0-0.010); GLUCOSE 100 MG/DL (70-104); POTASSIUM 3.6 MMOL/L (3.5-5.1); SODIUM 140 MMOL/L (135-145); TOTAL PROTEIN 7.4 G/DL (6.4-8.2); eGFR 56 ML/MIN
[2019-07-13] MEDS ORDERED: LORazepam 1 MG tablet PO ONE (20:20)
[2019-07-13] MEDS ORDERED: sennosides 8.6mg tablet PO PRN (20:30)
[2019-07-13] MEDS: ESCITALOPRAM OXALATE 5 MG TABLET PO SCH (20:52)
--- NOTE | 2019-07-13 21:54 | NUR ---
Patient brought from main ED to room 24. Patient is ambulatory without problem.
--- NOTE | 2019-07-13 22:15 | NUR ---
report from carlos walsh. patient is awake and well oriented. no distress. patient tells this music writer that he was feelng lonely, he was discharged without any medications for anxiety, his AA meetings were not frequent enough, he became suicidial but would never kill self. patient states he is not getting social interaction at his board and care as all residents are confined to their rooms because of covid 19. the patient tells this music writer that he wants to go to a ne home to live. patient was brought to the emergency department by a sponcer from [facility]. patient is in do distress. he immediately goes to sleep. Patients bed is in a low fowlers position and in direct view from the nursing station.
--- NOTE | 2019-07-13 22:51 | NUR ---
Patient tells this lead technical writer that he wants to reconcile his relationship with his grandaufosterter and her childred. This patient thinks perhaps he can live with them?
[2019-07-13] MEDS: traZODone 50mg tablet PO PRN (23:39)
--- NOTE | 2019-07-14 01:34 | NUR ---
Patient is sleeping on his left side. In view from nursing station.
--- NOTE | 2019-07-14 04:28 | NUR ---
Patient sleeping in low fowlers position.
--- NOTE | 2019-07-14 04:33 | NUR ---
Patient is sleeping in a low fowlers position.
[2019-07-14] MEDS: HYDROchlorothiazide 25mg tablet PO SCH (08:00)
[2019-07-14] MEDS: lisinopril 20mg tablet PO SCH ×2 (08:00→21:12)
[2019-07-14] MEDS: metFORMIN 500mg tablet PO SCH ×2 (08:18→18:32)
[2019-07-14] MEDS: aspirin 325mg tablet PO SCH (08:19)
[2019-07-14] MEDS: docusate sod 100mg capsule PO SCH ×2 (08:19→21:12)
[2019-07-14] MEDS: atorvastatin 20mg tablet PO SCH (08:19)
[2019-07-14 11:41] LABS: CLARITY,URINE CLEAR (Clear); COLOR,URINE YELLOW (Yellow); GLUCOSE, URINE NEGATIVE (Neg); KETONES,URINE NEGATIVE (Neg); LEUKOCYTE ESTERASE ,URINE NEGATIVE (Neg); NITRITES, URINE NEGATIVE (Neg); OCCULT BLOOD,URINE NEGATIVE (Neg); PROTEIN,URINE NEGATIVE (Neg); UROBILINOGEN,URINE 0.2 E.U/dL (0.2-1.0)
[2019-07-14 11:49] LABS: UA COLLECTION TYPE URINAL
--- NOTE | 2019-07-14 14:01 | NUR ---
Resting in bed ate lunch
[2019-07-14] MEDS ORDERED: LORazepam 0.5 MG tablet PO ONE (14:05)
--- NOTE | 2019-07-14 15:47 | NUR ---
Patient sitting and watching "You've Got Mail". Continue to monitor.
--- NOTE | 2019-07-14 19:51 | NUR ---
Patient is A&Ox3, JEVON and is approriate. He is at the nurses station talking with us.
[2019-07-14] MEDS: ESCITALOPRAM OXALATE 5 MG TABLET PO SCH (21:11)
[2019-07-14] MEDS: traZODone 50mg tablet PO PRN (21:12)
--- NOTE | 2019-07-15 03:59 | NUR ---
ASSUMED CARE OF PT FROM AUDI ARCE. PT SLEEPING AND DOES NOT APPEAR TO BE IN ANY DISTRESS. RR REGULAR. WILL CONTINUE TO MONITOR.
--- NOTE | 2019-07-15 05:19 | NUR ---
PT CONTINUES TO SLEEP. RR REGULAR AND DOES NOT APPEAR TO BE IN ANY DISTRESS. WILL CONTINUE TO MONITOR.
--- NOTE | 2019-07-15 06:44 | NUR ---
Patient sleeping on left side. No distress observed. Continue to monitor.
--- NOTE | 2019-07-15 08:05 | NUR ---
Patient sitting at the side of the bed eating breakfast. No distress observed. Continue to monitor.
[2019-07-15] MEDS: atorvastatin 20mg tablet PO SCH (08:33)
[2019-07-15] MEDS: aspirin 325mg tablet PO SCH (08:33)
[2019-07-15] MEDS: lisinopril 20mg tablet PO SCH ×2 (08:33→20:19)
[2019-07-15] MEDS: HYDROchlorothiazide 25mg tablet PO SCH (08:33)
[2019-07-15] MEDS: docusate sod 100mg capsule PO SCH ×2 (08:33→20:17)
[2019-07-15] MEDS: metFORMIN 500mg tablet PO SCH ×2 (08:34→18:20)
--- NOTE | 2019-07-15 09:53 | NUR ---
Patient sleeping on right side. No distress observed. Continue to monitor.
--- NOTE | 2019-07-15 11:40 | NUR ---
Patient sleeping on left side. No distress observed. Continue to monitor.
--- NOTE | 2019-07-15 13:05 | NUR ---
Patient eating lunch at side of bed. No distress observed. Continue to monitor.
--- NOTE | 2019-07-15 13:21 | NUR ---
Patient watching a movie. No distress observed. Continue to monitor.
[2019-07-15] MEDS: LORazepam 0.5 MG tablet PO PRN ×2 (15:44→22:31)
--- NOTE | 2019-07-15 15:47 | NUR ---
Patient finished watching a movie and feeling a little anxious. Patient laying down. Continue to monitor.
--- NOTE | 2019-07-15 17:36 | NUR ---
Patient watching a second movie. No distress observed. Continue to monitor.
--- NOTE | 2019-07-15 19:00 | NUR ---
Patient sitting up watching television. No distress.
[2019-07-15] MEDS: ESCITALOPRAM OXALATE 5 MG TABLET PO SCH (20:17)
--- NOTE | 2019-07-15 20:30 | NUR ---
Patient finished television. Patient returned to bed. Patient is alert and oriented with mild dementia. Patient is cooperative but remains depressed. Flat affect. S/I without a plan. No hallucinations. Patient is in view from nursing station. Frequent rounding for patient safety.
--- NOTE | 2019-07-15 22:09 | NUR ---
Patient resting quietly. Sleeping intermittently.
--- NOTE | 2019-07-15 23:35 | NUR ---
Patient repositions self in bed. Sleeping off and on.
--- NOTE | 2019-07-16 00:48 | NUR ---
Breaking Primary RN. Pt. resting quietly in bed on back, respirations WNL, no signs of distress.
--- NOTE | 2019-07-16 03:00 | NUR ---
Patient sleeping on right side. In view from nursing station.
--- NOTE | 2019-07-16 04:47 | NUR ---
Patient sleeping quietly on his left side.
--- NOTE | 2019-07-16 06:21 | NUR ---
Patient sleeps off and on still. Awake now, talking with YAZMIN Johnson. Fresh warm blankets being provided.
--- NOTE | 2019-07-16 06:40 | NUR ---
Patient is awake and reclining in bed. RN gave patient a warm blanket. No distress noted at this time. Continue to monitor.
[2019-07-16] MEDS: HYDROchlorothiazide 25mg tablet PO SCH (08:23)
[2019-07-16] MEDS: lisinopril 20mg tablet PO SCH ×2 (08:24→20:18)
[2019-07-16] MEDS: docusate sod 100mg capsule PO SCH ×2 (08:25→20:18)
[2019-07-16] MEDS: aspirin 325mg tablet PO SCH (08:25)
[2019-07-16] MEDS: metFORMIN 500mg tablet PO SCH ×2 (08:25→18:05)
[2019-07-16] MEDS: atorvastatin 20mg tablet PO SCH (08:25)
--- NOTE | 2019-07-16 08:34 | NUR ---
Patient awakened for breakfast. No distress observed. Meds taken after breakfast. Continue to monitor.
--- NOTE | 2019-07-16 10:30 | NUR ---
breaking primary nurse at this time .respiration wnl.will cont to monitor.
--- NOTE | 2019-07-16 11:43 | NUR ---
Patient sleeping on left side. No distress observed. Continue to monitor.
--- NOTE | 2019-07-16 12:45 | NUR ---
Patient states he and his daughter haven't spoken in 3 years which has made him very sad. States he wouldn't want to harm himself if their relationship was repaired. Patient gave this nurse the name of a mutual friend of him and his daughters to get her contact information. Called his daughter to see if she would speak to him and she agreed. Patient and his daughter reconciled via telephone. Patient cried happy tears while saying "I'm so sorry." Placed her name on the chart as a contact assembler.
[2019-07-16] MEDS: LORazepam 0.5 MG tablet PO PRN ×2 (12:55→20:18)
--- NOTE | 2019-07-16 13:10 | NUR ---
Tran Mustafa (daughter) cell # [phone]
--- NOTE | 2019-07-16 14:02 | NUR ---
Patient ambulatory to BR, steady gait. No distress observed. Continue to monitor.
--- NOTE | 2019-07-16 15:55 | NUR ---
Patient laying in bed sleeping. No distress observed. Continue to monitor.
--- NOTE | 2019-07-16 18:11 | NUR ---
Patient walking around pacing. No distress observed at this time. Continue to monitor.
--- NOTE | 2019-07-16 19:38 | NUR ---
The patient has been up on the unit and friendly and social with peers and staff. He is alert and oriented. He has been cooperative with the unit routine. He stated that he is feeling better this evening after having a call with his daughter and that he felt it was very helpful to him. He denies that he feels sucidal currently. He stated that his daughter is going to be coming from [facility] this weekend and he plans to relocate down there to be closer to her. He denies physical pain.
[2019-07-16] MEDS: traZODone 50mg tablet PO PRN (20:18)
[2019-07-16] MEDS: ESCITALOPRAM OXALATE 5 MG TABLET PO SCH (20:18)
--- NOTE | 2019-07-16 21:08 | NUR ---
The patient appears to be asleep on his bed.
[2019-07-16 22:08] VITALS: BP 131/83
== END 2019-07-16 22:11 ==
LOC: ER 16:42
DX: F41.9 Anxiety disorder, unspecified (principal); R45.851 Suicidal ideations; F03.90 Unspecified dementia, unspecified severity, without behavioral disturbance, psychotic disturbance, mood disturbance, and anxiety; E78.00 Pure hypercholesterolemia, unspecified; I10 Essential (primary) hypertension; I25.2 Old myocardial infarction; E11.9 Type 2 diabetes mellitus without complications; Z95.0 Presence of cardiac pacemaker; Z79.82 Long term (current) use of aspirin; Z79.899 Other long term (current) drug therapy
CPT/HCPCS: 36415; 80053; 80305; 80320; 81003; 82948; 84484; 85025; 93005; 99284

== ENCOUNTER 2019-07-16 22:25 | Inpatient (IN) | payer OTHER, MEDICARE ==
[~2019-07-16] VITALS: Ht 177.8 cm; Wt 128.0 kg
[2019-07-16 23:05] VITALS: BP 153/84
[2019-07-16] MEDS ORDERED: mag hydrox/Alum hydrox/simeth 30ml oral suspension PO PRN (23:05)
[2019-07-16] MEDS ORDERED: loperamide 2mg capsule PO PRN (23:05)
[2019-07-16] MEDS ORDERED: magnesium hydroxide 30ml (MOM) UD suspension PO PRN (23:05)
[2019-07-16] MEDS ORDERED: acetaminophen 325mg tablet PO PRN ×2 (23:05)
[2019-07-16] MEDS ORDERED: traZODone 50mg tablet PO PRN (23:05)
--- NOTE | 2019-07-16 23:32 | NUR ---
ADMIT NOTE Legal hold:5150 Client on involuntary status for DTS Why are they here: According to ER Record, Patient is a 79 y/o male who presents to the ED complaining of suicidal ideation, stating that he wants to end it all. Patient does not have a plan currently but reports that he is trying to figure out a way to do it. He was going to use a gun but states this was taken away from [him] a long time ago. He has one prior suicide attempt after the [place]. Patient was discharged from [facility] recently with plans for outpatient help but states this has not happened. 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 However, with COVID many meetings have been postponed to the detriment of his mental health. Patient states "its not good for me to be alone." Patient currently lives alone. Patient has a daughter in [place] that he hasn't talked to in a while but would like to contact her. What has happened this shift: Pt arrived on unit at 2230. Pt is smiling and in a pleasant mood. He denies s/i upon arrival explaining that he was able to contact his daughter with some assistance and he is hopeful that he can go live with or near his daughter. He reports he was feeling lonely and this is what caused him to feel suicidal. Pt is pleasant cooperative with admission. Pt showered and went to bed. 2 person skin assessment was completed and skin is clear at this time. S/I, H/I: denies A/VH: denies Sleep: see sleep hours ADL's: independant Were meds taken: meds given in the ER prior to arrival Any med S/E: none reported at this time Mental Status Exam Appearance: Pt is clean, took shower upon arrival and is wearing clean green scrubs Eye contact: good Behavior: cooperative, pleasant, joking with staff Speech: clear, normal rate and rhythm Mood: pleasant, anxious Affect: congruent Thought process: linear Thought Content: talking about plans to see his daughter Cognition: a/ox4 pt has some trouble with memory at times Insight: fair Judgment: fair Addendum: 07/16/19 at 2342 by Aditi Arteaga RN Pts medical history includes: Dementia, Vertigo, Arrhythmia, High Cholesterol, Hypertension, Myocardial Infarction, Pt has a pacemaker, Bronchitis, Pneumonia, DMII, pt takes metforin.
[2019-07-17] MEDS ORDERED: sennosides 8.6mg tablet PO PRN
[2019-07-17] MEDS ORDERED: traZODone 50mg tablet PO PRN
[2019-07-17 07:43] VITALS: BP 121/74
[2019-07-17] MEDS: metFORMIN 500mg tablet PO SCH ×2 (09:38→17:42)
[2019-07-17] MEDS: HYDROchlorothiazide 25mg tablet PO SCH (09:39)
[2019-07-17] MEDS: aspirin 325mg tablet PO SCH (09:39)
[2019-07-17] MEDS: docusate sod 100mg capsule PO SCH ×2 (09:39→20:44)
[2019-07-17] MEDS: atorvastatin 20mg tablet PO SCH (09:40)
[2019-07-17] MEDS: lisinopril 20mg tablet PO SCH ×2 (09:41→20:45)
--- NOTE | 2019-07-17 13:41 | NUR ---
Nursing Progress Note: Legal hold: 5150 Client on involuntary status for DTS Report received from nurse with use of SBAR: YAZMIN Ash Why are they here: Patient is a 79 y/o male who presented to the ED complaining of suicidal ideation, stating that he wants to end it all. Patient does not have a plan currently but reports that he is trying to figure out a way to do it. He was going to use a gun but states this was taken away from [him] a long time ago. He has one prior suicide attempt after the [place]. Patient was discharged from [facility] recently with plans for outpatient help but states this has not happened. 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 However, with COVID many meetings have been postponed to the detriment of his mental health r/t loneliness. Assessment What has happened this shift: Received pt. sleeping in bed at the beginning of the shift, he awoke for breakfast and was compliant with all medications. He received a phone call from his daughter, and phone call appeared to go well. 1:1 completed at bedside, pt. presents as cooperative, pleasant, fatigued, and withdrawn. He continues to endorse S/I, states, "I still want to end it all, probably with a pistol, but that's been taken away from me." Pt. reports that he is able to contract for safety on the unit. When this food writer further questioned pt. regarding his depression, he reports that he is currently feeling depressed because he would like to go straight from this facility to living in a facility near his daughter in the [place] area, however it is looking like he will have to go back to his [place] facility before that can happen. Pt. denies any A/V/AMADOR and no delusional statements made. He continues to isolate in his room throughout much of the shift, however does attend outside group, and interacts minimally with others. S/I, H/I: Pt. endorse S/I, states, "I still want to end it all, probably with a pistol, but that's been taken away from me." A/VH: Denies, pt. does not appear internally preoccupied Sleep: Pt. reports he slept well, sleep hours are 6 ADL's: Requires some direction from staff Group attendance: yes Were meds taken: Yes Any med S/E: None Mental Status Exam Appearance: Neat and well dressed Eye contact: Good Behavior: Cooperative, pleasant, fatigued, and withdrawn Speech: Soft, minimal Mood: Pleasant, however withdrawn Affect: Constricted Thought process: Circumstantial Thought Content: Preoccupation with depressed mood and desire to go live near his daughter Cognition: A&O X3 (not place) Insight: Poor Judgment: Fair Interventions PRN's used: None Therapeutic interventions: Introduced self and established rapport, ensured contract for safety, maintained a safe and therapeutic environment, provided clear and simple instructions, provided active listening and positive encouragement, and maintained a safe and therapeutic environment. Restraints/seclusion/emergency medication: N/A Justification of Continued Inpatient Treatment: Pt. continues to require interruption of current crisis, medication adjustments, and a safe and therapeutic environment.
[2019-07-17] MEDS: hydrOXYzine 25 MG tablet PO PRN (19:11)
[2019-07-17] MEDS: ESCITALOPRAM OXALATE 5 MG TABLET PO SCH (20:46)
[2019-07-17] MEDS ORDERED: ESCITALOPRAM OXALATE 5 MG TABLET PO SCH (21:00)
--- NOTE | 2019-07-17 22:34 | NUR ---
Nursing Progress Note Legal hold: 5150 Client on voluntary/involuntary status for DTS Report received from Edenilson ARCE with use of SBAR[]. Why are they here: Patient is a 79 y/o male who presented to the ED complaining of suicidal ideation, stating that he wants to end it all. Patient does not have a plan currently but reports that he is trying to figure out a way to do it. He was going to use a gun but states this was taken away from [him] a long time ago. He has one prior suicide attempt after the [place]. Patient was discharged from [facility] recently with plans for outpatient help but states this has not happened. 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 However, with COVID many meetings have been postponed to the detriment of his mental health r/t loneliness. Assessment What has happened this shift: The patient has been periodically resting on his bed and then up ambulating in the crews. He has been friendly and social with peers and staff. He presents as somewhat superficial when up and around others but presents as very depressed when engaged in one to one. He reported his anxiety was high about his life and how things are going for him and he requested and received PRN for anxiety. He admits to a majority of his thinking is negative. He stated when he has things to do like watch TV his thoughts are less negative. He continues to endorse frequent suicidal thinking "By train or something like that" He denies thoughts to harm others. He denies psychotic symptoms. He states he is not going to try and kill himself here on the unit. S/I, H/I: suicidal thoughts but no HI A/VH: None ADL's: Independently Were meds taken: yes Any med S/E no Mental Status Exam Appearance: Elderly patient who is dressed in green hospital scrubs Eye contact: direct Behavior: pleasant, joking with staff, superficial Speech: Spontaneous, regular rate and rhythm. Mood: depressed and apprehensive about his life Affect: blunted Thought process: linear Thought Content: negative themes, situational difficulties, suicidal thoughts Cognition: alert and oriented Insight: fair Judgment: fair Interventions PRN's used: atarax Therapeutic interventions: One to one with the patient to assess severity of depressive symptoms and self harm risk. The patient remains on q 15 minute safety checks. Restraints/seclusion/emergency medication:[] Justification of Continued Inpatient Treatment: The patient continues to endorse suicidal thoughts with a plan
[2019-07-18 07:25] VITALS: BP 96/50
[2019-07-18 08:20] VITALS: BP 140/82
[2019-07-18] MEDS: docusate sod 100mg capsule PO SCH ×2 (08:24→20:45)
[2019-07-18] MEDS: aspirin 325mg tablet PO SCH (08:25)
[2019-07-18] MEDS: metFORMIN 500mg tablet PO SCH ×2 (08:25→16:54)
[2019-07-18] MEDS: atorvastatin 20mg tablet PO SCH (08:25)
[2019-07-18] MEDS: lisinopril 20mg tablet PO SCH ×2 (08:25→20:44)
[2019-07-18] MEDS: HYDROchlorothiazide 25mg tablet PO SCH (08:25)
--- NOTE | 2019-07-18 09:06 | NUR ---
CM Reviewed ER notes, ER nursing staff was able to find pt's dtr's phone number: Tran MustafaOisedkoyk-[phone]. will obtain EVELYN to engage dtr in dcp activities. Nguyen Bergman LCSW Addendum: 07/18/19 at 0912 by Nguyen Bergman Amended: Links added.
--- NOTE | 2019-07-18 15:11 | NUR ---
NURSING PROGRESS NOTE Legal hold: 5150 Client on involuntary status for DTS Report received from YAZMIN Ash with use of SBAR Why are they here: Patient is a 79 y/o male who presented to the ED complaining of suicidal ideation, stating that he wants to end it all. Patient does not have a plan currently but reports that he is trying to figure out a way to do it. He was going to use a gun but states this was taken away from [him] a long time ago. He has one prior suicide attempt after the [place]. Patient was discharged from [facility] recently with plans for outpatient help but states this has not happened. 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 However, with COVID many meetings have been postponed to the detriment of his mental health r/t loneliness. Assessment What has happened this shift: Asleep at change of shift, up for breakfast and meds. Went back to bed, isolated to room, napping most of day. Depressed and lonely mood with pleasant yet blunted affect. States would still like to "end it all" but does not know how he would do it. States he just wants to "be around people." S/I, H/I: suicidal thoughts A/VH: Denies Sleep: napped most of day ADL's: Requires some direction from staff Group attendance: no Were meds taken: Yes Any med S/E: None Mental Status Exam Appearance: slightly disheveled Eye contact: fair Behavior: Cooperative, pleasant, fatigued, and withdrawn Speech: Soft, minimal Mood: Pleasant, cooperative, polite Affect: blunted Thought process: Circumstantial Thought Content: Preoccupation with depressed mood and companionship Cognition: Alert Judgment: poor Insight: poor Interventions PRN's used: None Therapeutic interventions: Introduced self and established rapport, ensured contract for safety, maintained a safe and therapeutic environment, provided clear and simple instructions, provided active listening and positive encouragement, and maintained a safe and therapeutic environment. Restraints/seclusion/emergency medication: None Justification of Continued Inpatient Treatment: Pt. continues to require interruption of current crisis, medication adjustments, and a safe and therapeutic environme
[2019-07-18 19:00] VITALS: BP 156/91
[2019-07-18] MEDS: ESCITALOPRAM OXALATE 5 MG TABLET PO SCH (20:44)
--- NOTE | 2019-07-19 04:45 | NUR ---
Nursing Progress Note: Legal hold: 5150 Client on involuntary status for DTS Report received from nurse with use of SBAR: SUZIE Zarate Why are they here: Patient is a 79 y/o male who presented to the ED complaining of suicidal ideation, stating that he wants to end it all. Patient does not have a plan currently but reports that he is trying to figure out a way to do it. He was going to use a gun but states this was taken away from [him] a long time ago. He has one prior suicide attempt after the [place]. Patient was discharged from [facility] recently with plans for outpatient help but states this has not happened. 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 However, with JO-ANN many meetings have been postponed to the detriment of his mental health r/t loneliness. Assessment What has happened this shift: Patient visible on the unit at the beginning of shift. Observed socializing with peers in the group room during HS snack. Patient is pleasant and cooperative with all care; compliant with all medication. Denies mental health symptoms this shift. He reports feeling "happy but anxious" about possible discharge for Monday (07/19). He continued to explain looking forward to going with his daughter but does not want to go back to [place] facility. S/I, H/I: Denies A/VH: Denies Sleep: Refer to sleep assessment ADL's: Independent Group attendance: No groups this shift Were meds taken: Yes Any med S/E: None observed or reported Mental Status Exam Appearance: Neat, clean and appropriately dressed Eye contact: Good Behavior: Cooperative, pleasant, and withdrawn Speech: Clear, steady rate/rhythm, audible Mood: "Happy but anxious" Affect: Congruent Thought process: Linear Thought Content: Possible discharge Monday to daughter; does not want to go back to [place] facility Cognition: A&O X3 (not place) Insight: Poor Judgment: Fair Interventions PRN's used: None Therapeutic interventions: Introduced self and established rapport, ensured contract for safety, maintained a safe and therapeutic environment, provided clear and simple instructions, provided active listening and positive encouragement, and maintained a safe and therapeutic environment. Restraints/seclusion/emergency medication: N/A Justification of Continued Inpatient Treatment: Pt. continues to require interruption of current crisis, medication adjustments, and a safe and therapeutic environment.
[2019-07-19 08:00] VITALS: BP 124/81
[2019-07-19] MEDS: aspirin 325mg tablet PO SCH (08:43)
[2019-07-19] MEDS: metFORMIN 500mg tablet PO SCH ×2 (08:43→18:21)
[2019-07-19] MEDS: docusate sod 100mg capsule PO SCH ×2 (08:43→20:40)
[2019-07-19] MEDS: HYDROchlorothiazide 25mg tablet PO SCH (08:44)
[2019-07-19] MEDS: lisinopril 20mg tablet PO SCH ×2 (08:44→20:40)
[2019-07-19] MEDS: atorvastatin 20mg tablet PO SCH (08:44)
--- NOTE | 2019-07-19 10:11 | NUR ---
Nursing Progress Note: Legal hold: 5150 Client on involuntary status for DTS Report received from nurse with use of SBAR: LANI David Why are they here: Patient is a 79 y/o male who presented to the ED complaining of suicidal ideation, stating that he wants to end it all. Patient does not have a plan currently but reports that he is trying to figure out a way to do it. He was going to use a gun but states this was taken away from [him] a long time ago. He has one prior suicide attempt after the [place]. Patient was discharged from [facility] recently with plans for outpatient help but states this has not happened. 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 However, with JO-ANN many meetings have been postponed to the detriment of his mental health r/t loneliness. Assessment What has happened this shift: Received pt. sleeping in bed at the beginning of the shift, he awoke for breakfast and greeted this radio news writer animatedly in the hallway. 1:1 completed at bedside, pt. continues to present as cooperative, however slightly withdrawn. He currently denies S/I, however states jokingly, "No one will give me a gun. That would be fast, the other ways would hurt." Pt. does admit to ongoing depression, but is also hopeful that he will discharging with his daughter who he reports is coming tomorrow. Pt. continues to be able to contract for safety on the unit. Pt. denies any A/V/AMADOR and no delusional statements made. He isolates in his room throughout much of the the morning working on a word search, however is up interacting with others later in the day. S/I, H/I: Pt. denies S/I, however states jokingly, "No one will give me a gun. That would be fast, the other ways would hurt." A/VH: Denies, pt. does not appear internally preoccupied Sleep: Pt. reports he slept well, sleep hours are 7.25 ADL's: Requires some direction from staff Group attendance: No Were meds taken: Yes Any med S/E: None Mental Status Exam Appearance: Unshaven, however appropriately dressed Eye contact: Good Behavior: Cooperative, pleasant, fatigued, and withdrawn Speech: Soft, minimal Mood: Pleasant, however withdrawn Affect: Constricted Thought process: Circumstantial Thought Content: Preoccupation with depressed mood and desire to discharge with his daughter Cognition: A&O X4 Insight: Fair Judgment: Fair Interventions PRN's used: None Therapeutic interventions: Ensured contract for safety, maintained a safe and therapeutic environment, provided clear and simple instructions, provided positive encouragement, and maintained a safe and therapeutic environment. Restraints/seclusion/emergency medication: N/A Justification of Continued Inpatient Treatment: ENRIQUE Guerrero, pt. continues to require medication adjustments and a safe and therapeutic environment.
[2019-07-19] MEDS: hydrOXYzine 25 MG tablet PO PRN (12:52)
--- NOTE | 2019-07-19 13:12 | NUR ---
Nursing Note: At approximately 1230, pt. had a tearful episode and reported increased anxiety. He stated, "I have never felt this way before. I think it is because my daughter is coming tomorrow." Pt. reports he has not seen his daughter in years and this is contributing to his anxiety, he also admits that he is still fearful of having to return to the facility he was living on [address] and having to "Live alone." PRN Atrax administered and will monitor. Pt. refused lunch, however accepted a light snack, is napping at this time.
[2019-07-19 19:00] VITALS: BP 132/66
[2019-07-19] MEDS: ESCITALOPRAM OXALATE 5 MG TABLET PO SCH (20:43)
--- NOTE | 2019-07-20 05:04 | NUR ---
Nursing Progress Note: Legal hold: VOL Client on voluntary status Report received from nurse with use of SBAR: SUZIE Zarate Why are they here: Patient is a 79 y/o male who presented to the ED complaining of suicidal ideation, stating that he wants to end it all. Patient does not have a plan currently but reports that he is trying to figure out a way to do it. He was going to use a gun but states this was taken away from [him] a long time ago. He has one prior suicide attempt after the [place]. Patient was discharged from [facility] recently with plans for outpatient help but states this has not happened. 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 However, with JO-ANN many meetings have been postponed to the detriment of his mental health r/t loneliness. Assessment What has happened this shift: Patient observed in the community room with peers at the beginning of shift. Pleasant and cooperative with all care this shift; compliant with medication. No PRNs provided this shift. Denies SI, HI, A/VH. Patient continues to explain feeling "happy but anxious." He appears unsettled about D/C plan because a place has not been confirmed in [place] and he does not wish to return to [place]. Patient participated in HS snack before retiring to bed for the night. S/I, H/I: Denies A/VH: Denies Sleep: Refer to sleep assessment ADL's: Independent Group attendance: No groups this shift Were meds taken: Yes Any med S/E: None observed or reported Mental Status Exam Appearance: Neat, clean and appropriately dressed Eye contact: Good Behavior: Cooperative, pleasant, and withdrawn Speech: Clear, steady rate/rhythm, audible Mood: Anxious, withdrawn Affect: Constricted Thought process: Linear Thought Content: Seeing his daughter Cognition: A&O X3 (not place) Insight: Poor Judgment: Fair Interventions PRN's used: None Therapeutic interventions: Introduced self and established rapport, ensured contract for safety, maintained a safe and therapeutic environment, provided clear and simple instructions, provided active listening and positive encouragement, and maintained a safe and therapeutic environment. Restraints/seclusion/emergency medication: N/A Justification of Continued Inpatient Treatment: Pt. continues to require interruption of current crisis, medication adjustments, and a safe and therapeutic environment.
[2019-07-20 08:00] VITALS: BP 143/78
[2019-07-20] MEDS: docusate sod 100mg capsule PO SCH ×2 (08:11→20:39)
[2019-07-20] MEDS: aspirin 325mg tablet PO SCH (08:11)
[2019-07-20] MEDS: HYDROchlorothiazide 25mg tablet PO SCH (08:11)
[2019-07-20] MEDS: metFORMIN 500mg tablet PO SCH ×2 (08:12→18:05)
[2019-07-20] MEDS: lisinopril 20mg tablet PO SCH ×2 (08:12→20:40)
[2019-07-20] MEDS: atorvastatin 20mg tablet PO SCH (08:12)
--- NOTE | 2019-07-20 10:45 | NUR ---
Late Note for contact made 07/19/19 CM-DCP Presenting Issues: Pt's functioning, decision making and judgement are impaired due to conditions associated with the aging process and depression. Pt is no longer able to manage himself in an independent living situation and requires placement in an assisted living facility. Interventions: SS had t/c w/pt's dtr, per t/c dtr will not be taking pt with her on Monday as she does not have a place for pt to go to in [place]. Pt's dtr will come to the hospital tomorrow to meet w/SS to discuss next steps for pt. SS made it clear that if pt will not be going to [place], pt may be d/c-ing Monday or Monday back to his apartment. Plan: SS to meet w/family Monday and engage them in dcp activities. Nguyen Mathew LCSW Addendum: 07/20/19 at 1052 by Nguyen Bergman Amended: Links added.
[2019-07-20] MEDS: hydrOXYzine 25 MG tablet PO PRN (10:51)
--- NOTE | 2019-07-20 10:52 | NUR ---
CM-DCP Presenting Issues: Pt needs dcp to facilitate d/c. Pt's dtr came to the hospital to participate in dcp activities. Interventions: SS met w/pt's dtr and engaged her in dcp activities. Per session, dtr is not able to take pt to [place] she is agreeable to working w/Jessica Ralph for the [facility] to facilitate pt's access to a local assisted living facility, she is also willing to advocate for additional support for pt via the [place] system of care. Plan: SS will continue to engage pt, family & community agencies in dcp activities. An APS referral was completed and faxed to [facility]PS to notify [facility]PS of plan for pt to d/c back to his apartment and of pt's need for a higher level of care. Nguyen Bergman LCSW Addendum: 07/20/19 at 1059 by Nguyen ANAYA Amended: Links added.
--- NOTE | 2019-07-20 17:31 | NUR ---
Nursing Progress Note: Legal hold: Vol. Client on involuntary status for DTS Report received from nurse with use of SBAR: LANI David Why are they here: Patient is a 79 y/o male who presented to the ED complaining of suicidal ideation, stating that he wants to end it all. Patient does not have a plan currently but reports that he is trying to figure out a way to do it. He was going to use a gun but states this was taken away from [him] a long time ago. He has one prior suicide attempt after the [place]. Patient was discharged from [facility] recently with plans for outpatient help but states this has not happened. 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 However, with JO-ANN many meetings have been postponed to the detriment of his mental health r/t loneliness. Assessment What has happened this shift: Received pt sleeping in bed at shift. Change. Pt. attends all meals in the dining room. Takes medications as ordered without side effects. Went into patients room for 1:1 patient was red in the face stating that he was having anxiety, Atarax given with good relief of symptoms. Pt. states that he believes his daughter is coming to visit him today, that he may go and live with her. He states that he does not want to go back to where he was living before. Pt. believes he is discharging Monday and will go to live near his youngest daughter. Patient states that he has been thinking about suicide today, although he believes he is too much of a coward to complete. He states that he "just wants everything to go away". Pt. talks about suicide by gun, but believes he could not do this. Pt. states that his depression is a 4/10. He states "we'll just see how things go" regarding his daughter. S/I, H/I: +SI. A/VH: Denies Sleep: 5.75 hrs NOC ADL's: Requires some direction from staff Group attendance: Yes. Were meds taken: Yes Any med S/E: None Mental Status Exam Appearance: Freshly showered in unit attire. Eye contact: Direct. Behavior: Cooperative, pleasant, fatigued, and withdrawn Speech: Soft, minimal Mood: Depressed. Affect: Blunted. Thought process: Circumstantial Thought Content: Preoccupation with depressed mood and desire to discharge with his daughter Cognition: A&O X4 Insight: Fair Judgment: Fair Interventions PRN's used: Atarax Therapeutic interventions: Ensured contract for safety, maintained a safe and therapeutic environment, provided clear and simple instructions, provided positive encouragement, and maintained a safe and therapeutic environment. Restraints/seclusion/emergency medication: N/A Justification of Continued Inpatient Treatment: Per ENRIQUE Gilbert, pt. continues to require medication adjustments and a safe and therapeutic environment.
[2019-07-20 19:53] VITALS: BP 125/80
[2019-07-20] MEDS: ESCITALOPRAM OXALATE 5 MG TABLET PO SCH (20:42)
--- NOTE | 2019-07-21 03:20 | NUR ---
Nursing Progress Note: Legal hold: VOL Client on voluntary status Report received from nurse with use of SBAR: SUZIE Zarate Why are they here: Patient is a 79 y/o male who presented to the ED complaining of suicidal ideation, stating that he wants to end it all. Patient does not have a plan currently but reports that he is trying to figure out a way to do it. He was going to use a gun but states this was taken away from [him] a long time ago. He has one prior suicide attempt after the [place]. Patient was discharged from [facility] recently with plans for outpatient help but states this has not happened. 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 However, with COVFRANCK many meetings have been postponed to the detriment of his mental health r/t loneliness. Assessment What has happened this shift: Patient observed in the community briefly at the beginning of shift. Patient appears depressed and is dismissive to mental health assessment. Patient reports to this principal technical writer he believes he is discharging Monday or Monday back to [place]. Per SS patient is seeking placement in higher level care facility, retirement, and wanting to be in [place] to be near family. Patient retired to bed post HS snack. S/I, H/I: Unable to assess; pt dismissive to question. A/VH: Unable to assess; pt dismissive to question. Sleep: Refer to sleep assessment ADL's: Independent Group attendance: No groups this shift Were meds taken: Yes Any med S/E: None observed or reported Mental Status Exam Appearance: Neat, clean and appropriately dressed Eye contact: Good Behavior: Isolative to self Speech: Clear, steady rate/rhythm, audible Mood: Depressed Affect: Constricted Thought process: Linear Thought Content: Possibly discharging Monday or Monday to prior living arrangement until higher level care available to him. Cognition: A&O X3 (not place) Insight: Poor Judgment: Fair Interventions PRN's used: None Therapeutic interventions: Introduced self and established rapport, ensured contract for safety, maintained a safe and therapeutic environment, provided clear and simple instructions, provided active listening and positive encouragement, and maintained a safe and therapeutic environment. Restraints/seclusion/emergency medication: N/A Justification of Continued Inpatient Treatment: Pt. continues to require interruption of current crisis, medication adjustments, and a safe and therapeutic environment.
[2019-07-21 07:00] VITALS: BP 136/85
[2019-07-21] MEDS: HYDROchlorothiazide 25mg tablet PO SCH (08:14)
[2019-07-21] MEDS: lisinopril 20mg tablet PO SCH ×2 (08:14→20:05)
[2019-07-21] MEDS: aspirin 325mg tablet PO SCH (08:14)
[2019-07-21] MEDS: docusate sod 100mg capsule PO SCH ×2 (08:14→20:05)
[2019-07-21] MEDS: metFORMIN 500mg tablet PO SCH ×2 (08:15→17:53)
[2019-07-21] MEDS: atorvastatin 20mg tablet PO SCH (08:15)
--- NOTE | 2019-07-21 16:24 | NUR ---
Nursing Progress Note: Legal hold: Vol. Client on voluntary status for DTS Report received from nurse with use of SBAR: LANI David Why are they here: Patient is a 79 y/o male who presented to the ED complaining of suicidal ideation, stating that he wants to end it all. Patient does not have a plan currently but reports that he is trying to figure out a way to do it. He was going to use a gun but states this was taken away from [him] a long time ago. He has one prior suicide attempt after the [place] War. Patient was discharged from [facility] recently with plans for outpatient help but states this has not happened. 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 However, with JO-ANN many meetings have been postponed to the detriment of his mental health r/t loneliness. Assessment What has happened this shift: Received pt sleeping in bed. Pt. Up for breakfast and takes medications without incident. Pt. Reports an increase in depression today. Pt. Has been in bed for most of the morning, he got up and played cards with staff and peers. Pt. Has not spoken to his daughter since yesterday. S/I, H/I: +SI. A/VH: Denies Sleep: Napped. ADL's: Requires some direction from staff Group attendance: No. Were meds taken: Yes Any med S/E: None Mental Status Exam Appearance: Clean and neat in green scrubs. Eye contact: Direct. Behavior: Cooperative, pleasant, fatigued, and withdrawn Speech: Soft, minimal Mood: Depressed. Affect: Blunted. Thought process: Circumstantial Thought Content: Preoccupation with depressed mood and desire to discharge with his daughter Cognition: A&O X4 Insight: Fair Judgment: Fair Interventions PRN's used: None. Therapeutic interventions: Ensured contract for safety, maintained a safe and therapeutic environment, provided clear and simple instructions, provided positive encouragement, and maintained a safe and therapeutic environment. Restraints/seclusion/emergency medication: N/A Justification of Continued Inpatient Treatment: Per ENRIQUE Gilbret, pt. continues to require medication adjustments and a safe and therapeutic environment.
[2019-07-21 19:45] VITALS: BP 116/73
[2019-07-21] MEDS: ESCITALOPRAM OXALATE 5 MG TABLET PO SCH (20:06)
--- NOTE | 2019-07-22 03:20 | NUR ---
Nursing Progress Note: Legal hold: VOL Client on voluntary status Report received from nurse with use of SBAR: SUZIE Zarate Why are they here: Patient is a 79 y/o male who presented to the ED complaining of suicidal ideation, stating that he wants to end it all. Patient does not have a plan currently but reports that he is trying to figure out a way to do it. He was going to use a gun but states this was taken away from [him] a long time ago. He has one prior suicide attempt after the [place]. Patient was discharged from [facility] recently with plans for outpatient help but states this has not happened. 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 However, with COVID many meetings have been postponed to the detriment of his mental health r/t loneliness. Assessment What has happened this shift: Patient socializing with peers in the group room at the beginning of shift. Walked the crews with his roommate and joking with staff this shift. Pleasant and cooperative with all care; compliant with medication. Denies SI, HI, A/VH this shift. Patient believes to be discharging tomorrow back to [place] until placement in shelter is found. S/I, H/I: Denies A/VH: Denies Sleep: Refer to sleep assessment ADL's: Independent Group attendance: No groups this shift Were meds taken: Yes Any med S/E: None observed or reported Mental Status Exam Appearance: Neat, clean and appropriately dressed Eye contact: Good Behavior: Socializing with peers and staff Speech: Clear, steady rate/rhythm, audible Mood: Euthymic Affect: Animated Thought process: Linear Thought Content: Possible d/c Monday Cognition: A&O X3 (not place) Insight: Poor Judgment: Fair Interventions PRN's used: None Therapeutic interventions: Introduced self and established rapport, ensured contract for safety, maintained a safe and therapeutic environment, provided clear and simple instructions, provided active listening and positive encouragement, and maintained a safe and therapeutic environment. Restraints/seclusion/emergency medication: N/A Justification of Continued Inpatient Treatment: Pt. continues to require interruption of current crisis, medication adjustments, and a safe and therapeutic environment.
[2019-07-22] MEDS: atorvastatin 20mg tablet PO SCH (07:54)
[2019-07-22] MEDS: metFORMIN 500mg tablet PO SCH ×2 (07:54→17:53)
[2019-07-22] MEDS: docusate sod 100mg capsule PO SCH ×2 (07:54→20:37)
[2019-07-22] MEDS: aspirin 325mg tablet PO SCH (07:54)
[2019-07-22] MEDS: lisinopril 20mg tablet PO SCH ×2 (07:55→20:37)
[2019-07-22] MEDS: HYDROchlorothiazide 25mg tablet PO SCH (07:55)
[2019-07-22 08:00] VITALS: BP 127/60
--- NOTE | 2019-07-22 10:00 | NUR ---
Group Therapy: Process Group This Clinicians goal for this process group were as follows: (1) Ask scaling questions about Patients current anxiety, depression, and irritability symptoms as a check-in. (2) Review the concept of emotional and situational triggers as it relates to potential onsets of maladaptive episodes of emotional escalation. (3) Review the concept of thought-stopping, and thought-reframing as interventions to stop unhelpful/irrational thinking processes. (4) Provide psychoeducation on mindfulness as a principle that can assist in reducing maladaptive symptoms of emotional escalation. (5) Process Clients thoughts and reflections on this topic within the group milieu. Patient identified experiencing the following levels of anxiety, depression, and anger/irritability while present in the group milieu. Anxiety: 05/30 Depression: 10 Anger irritability: 06/29 Patient presented as open and cooperative within the group milieu. Patient was escorted into the group milieu by floor staff approximately senior living through the group. Patient was dressed in a [facility] scrub. Patient provided answers to the scaling questions about his anxiety, depression, and anger/irritability symptoms and quietly listened during the process group. Patient presented as subdued and unobtrusive within the group milieu. Cody Whiting MA, HENRRY Addendum: 07/23/19 at 0809 by Cody Whiting Amended: Links added.
[2019-07-22] MEDS: hydrOXYzine 25 MG tablet PO PRN (10:06)
--- NOTE | 2019-07-22 16:24 | NUR ---
DCP Presenting Issues: Pt's ready for d/c, but is no longer able to live independently. Pt requested assistance to access assisted living facilities. Interventions: coordinated an assessment for assisted living with Jessica Ralph @ the [facility] to facilitate pt's access to assisted living upon d/c. Per session, pt & his daughter Tran Neal- [phone] are in agreement that a local assisted living facility would be best at this time. Jessica asked that a chest x-ray be provided to r/o Ms. Ralph also recommended that pt consider a DPOA with re to his finances & healthcare decision making. Pt's dtr is not ready to do this at this time. Patient wants his dtr to assume healthcare decision making and DPOA over his finances. Plan: will e-mail DPOA & Advance Directive forms to pt's dtr to her to review and decide if she will talk with patient about them. Ms. Ralph will contact tomorrow w/update on her search for an assisted living facility for pt. Nguyen Bergman LCSW Addendum: 07/22/19 at 1650 by Nguyen Bergman Amended: Links added.
--- NOTE | 2019-07-22 17:12 | NUR ---
Nursing Progress Note: Legal hold: Vol. Client on voluntary status for DTS Report received from nurse with use of SBAR: LANI David Why are they here: Patient is a 79 y/o male who presented to the ED complaining of suicidal ideation, stating that he wants to end it all. Patient does not have a plan currently but reports that he is trying to figure out a way to do it. He was going to use a gun but states this was taken away from [him] a long time ago. He has one prior suicide attempt after the [place]. Patient was discharged from [facility] recently with plans for outpatient help but states this has not happened. 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 However, with YOSSIID many meetings have been postponed to the detriment of his mental health r/t loneliness. Assessment What has happened this shift: Patient was awake at change of shift and up for breakfast. When RN went to speak to patient this morning, he was very confused. RN has worked with this patient at each visit and when patient was down in the E. R. Patient did not know who I was. Patient is very depressed and feels like he doesn't want to live. Patient had told RN that he wants to move down with his daughter. Today patient is saying he is staying here. RN spoke to daughter who does not want patient to move close to her and she does not want to be his POA. Patient became more lucid as day went on. Patient had a meeting with Nguyen Talamantes, distillery worker general and the daughter was on speaker phone. They discussed finding patient a higher level of care as patient is forgetful and has the beginnings of dementia. Patient is social and needs to be around people. Patient playing cards by himself in the Community Room. Patient is glad to be moving to a new place. S/I, H/I: patient feeling like he doesn't want to live A/VH: Denies Sleep: Napped. ADL's: Requires some direction from staff Group attendance: No. Were meds taken: Yes Any med S/E: None Mental Status Exam Appearance: Clean and neat in green scrubs. Eye contact: Direct. Behavior: Cooperative, pleasant, fatigued Speech: Soft, minimal Mood: Depressed. Affect: Blunted. Thought process: Linear Thought Content: Looking forward to moving out of [facility] Cognition: A&O X4 Insight: Fair Judgment: Fair Interventions PRN's used: Atarax Therapeutic interventions: Ensured contract for safety, maintained a safe and therapeutic environment, provided clear and simple instructions, provided positive encouragement, and maintained a safe and therapeutic environment. Restraints/seclusion/emergency medication: N/A Justification of Continued Inpatient Treatment: Per ENRIQUE Gilbert, pt. continues to require medication adjustments and a safe and therapeutic environment.
[2019-07-22 19:00] VITALS: BP 136/86
[2019-07-22] MEDS: ESCITALOPRAM OXALATE 5 MG TABLET PO SCH (20:39)
--- NOTE | 2019-07-23 04:11 | NUR ---
Nursing Progress Note: Legal hold: VOL Client on voluntary status Report received from nurse with use of SBAR: SUZIE Zarate Why are they here: Patient is a 79 y/o male who presented to the ED complaining of suicidal ideation, stating that he wants to end it all. Patient does not have a plan currently but reports that he is trying to figure out a way to do it. He was going to use a gun but states this was taken away from [him] a long time ago. He has one prior suicide attempt after the [place]. Patient was discharged from [facility] recently with plans for outpatient help but states this has not happened. 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 However, with COVID many meetings have been postponed to the detriment of his mental health r/t loneliness. Assessment What has happened this shift: Patient observe in the community room socializing with peers at the beginning of shift. Pleasant and cooperative with care; compliant with medication. Shareholder asked patient about SI and he reported, "I talked with Davis Beasley and she is unable to come visit right now because of all the craziness; otherwise I'm doing really good." He reported having "a nice phone call with my daughter." He continued to explain he will be staying on the unit for the next few days as SW is looking for placement in snf. Per SS note, SS coordinated an assessment for assisted living with Jessica Ralph @ the [facility] to facilitate pt's access to assisted living upon d/c. Patient had a chest xray completed 07/22/19 no dictation provided at this time. Patient jokes each time he crosses path with manual writer, stating, "there's my drug dealer," with a big smile. Patient retired to bed post HS snack. S/I, H/I: Denies A/VH: Denies Sleep: Refer to sleep assessment ADL's: Independent Group attendance: No groups this shift Were meds taken: Yes Any med S/E: None observed or reported Mental Status Exam Appearance: Neat, clean and appropriately dressed Eye contact: Good Behavior: Socializing with peers and staff Speech: Clear, steady rate/rhythm, audible Mood: Euthymic Affect: Bright Thought process: Circumstantial Thought Content: Discharge, going to snf facility Cognition: A&O X3 (not place) Insight: Poor Judgment: Fair Interventions PRN's used: None Therapeutic interventions: Introduced self and established rapport, ensured contract for safety, maintained a safe and therapeutic environment, provided clear and simple instructions, provided active listening and positive encouragement, and maintained a safe and therapeutic environment. Restraints/seclusion/emergency medication: N/A Justification of Continued Inpatient Treatment: Pt. continues to require interruption of current crisis, medication adjustments, and a safe and therapeutic environment.
[2019-07-23 07:00] VITALS: BP 144/91
[2019-07-23] MEDS: HYDROchlorothiazide 25mg tablet PO SCH (08:06)
[2019-07-23] MEDS: atorvastatin 20mg tablet PO SCH (08:06)
[2019-07-23] MEDS: lisinopril 20mg tablet PO SCH ×2 (08:14→20:06)
[2019-07-23] MEDS: metFORMIN 500mg tablet PO SCH ×2 (08:15→17:45)
[2019-07-23] MEDS: aspirin 325mg tablet PO SCH (08:15)
[2019-07-23] MEDS: docusate sod 100mg capsule PO SCH ×2 (08:15→20:06)
--- NOTE | 2019-07-23 11:40 | NUR ---
Initial: Pt admitted with depression with SI. Pt currently on a CHO controlled diet documented with 75-100% PO intake throughout LOS with the exception of refusing two meals. Overall pt meeting estimated nutrient needs. LBM 07/20 receiving routine bowel care. No edema or wounds. No nutrition diagnosis at this time. Will continue to follow. Recommendations: 1) Continue CHO controlled diet 2) Routine bowel care 3) Scaled weights per rx Addendum: 07/23/19 at [address] Amended: Links added.
--- NOTE | 2019-07-23 15:21 | NUR ---
Nursing Progress Note: Legal hold: Vol. Client on voluntary status for DTS Report received from nurse with use of SBAR: LANI David Why are they here: Patient is a 79 y/o male who presented to the ED complaining of suicidal ideation, stating that he wants to end it all. Patient does not have a plan currently but reports that he is trying to figure out a way to do it. He was going to use a gun but states this was taken away from [him] a long time ago. He has one prior suicide attempt after the [place]. Patient was discharged from [facility] recently with plans for outpatient help but states this has not happened. 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 However, with JO-ANN many meetings have been postponed to the detriment of his mental health r/t loneliness. Assessment What has happened this shift: Patient was asleep at change of shift and up for breakfast. Patient appears depressed this morning and slept most of the morning. Patient better in the afternoon and playing cards with peers. Patient has an appointment with [facility] at 1615 today. RN spoke with patient's friend Vannesa Huggins who has known pt for 32 years. Vannesa lives in the [place] area and thought patient could move close to her but she knew it would be more expensive to live there. RN spoke with patient again this afternoon and asked him where he wanted to live. Patient stated he wants to live in [place]. Patient denies suicidal ideation but still feeling like he doesn't want to live. S/I, H/I: patient feeling like he doesn't want to live A/VH: Denies Sleep: Napped all morning. ADL's: Requires some direction from staff Group attendance: No. Were meds taken: Yes Any med S/E: None Mental Status Exam Appearance: Clean and neat in green scrubs. Patient took a shower today. Eye contact: Direct. Behavior: Cooperative, pleasant, Speech: Soft, minimal Mood: Depressed. Affect: Blunted. Thought process: Linear Thought Content: Looking forward to moving out of [place] Cognition: A&O X4 Insight: Fair Judgment: Fair Interventions PRN's used: Therapeutic interventions: Ensured contract for safety, maintained a safe and therapeutic environment, provided clear and simple instructions, provided positive encouragement, and maintained a safe and therapeutic environment. Restraints/seclusion/emergency medication: N/A Justification of Continued Inpatient Treatment: Per ENRIQUE Gilbert, pt. continues to require medication adjustments and a safe and therapeutic environment.
--- NOTE | 2019-07-23 16:07 | NUR ---
LILLYP SS received t/c from Jessica Ralph [facility], per t/c Nursing staff [facility] will meet with pt downstairs out front of the hospital to assess him for possible placement. If accepted pt will be d/c to go straight to [place] and pt will need a referral for [facility] to address psychiatric care needs. SS also had t/c with Emmy YOUNGcare transition coordinator @ [facility], per t/c Emmy will seek prior auth from [facility] for services. SS will attend interview w/pt. Nguyen Bergman LCSW Addendum: 07/23/19 at 1615 by Nguyen Bergman SS Amended: Links added.
--- NOTE | 2019-07-23 17:07 | NUR ---
CM-DCP Presenting Issues: Pt requires a higher level of care other than independent living. Interventions: SS accompanied pt to his interview w/[facility] facility, per session, pt was accepted and is expected to move to [facility] when he is d/c'd from the hospital. SS had t/c w/Ezequiel @ [employer] to get info re how pt is to provide 30-day notice, per t/c Deja will fax a form and pt will need to sign it to provide notice of move. SS left for pt's dtr instructing her hire movers to move pt's furniture & belongings to [facility]. Plan: SS will provide referral for HH services with [facility] and fax to [place] & [employer] [facility] for pt to access HH services while he's at [facility]. Pt to d/c 07/24, [facility] will provide transportation. Nguyen Bergman LCSW Addendum: 07/23/19 at 1732 by Nguyen ANAYA Amended: Links added.
[2019-07-23 19:00] VITALS: BP 142/84
[2019-07-23] MEDS: ESCITALOPRAM OXALATE 5 MG TABLET PO SCH (20:05)
--- NOTE | 2019-07-24 03:56 | NUR ---
Nursing Progress Note: Legal hold: VOL Client on voluntary status Report received from nurse with use of SBAR: SUZIE Zarate Why are they here: Patient is a 79 y/o male who presented to the ED complaining of suicidal ideation, stating that he wants to end it all. Patient does not have a plan currently but reports that he is trying to figure out a way to do it. He was going to use a gun but states this was taken away from [him] a long time ago. He has one prior suicide attempt after the [place]. Patient was discharged from [facility] recently with plans for outpatient help but states this has not happened. 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 However, with COVID many meetings have been postponed to the detriment of his mental health r/t loneliness. Assessment What has happened this shift: Patient observed in the group room socializing with peers and watching TV at the beginning of shift. Pleasant and cooperative with all care; compliant with all medication. No PRNs this shift. Denies SI, HI, A/VH and no delusional statements reported this shift. Patient has been accepted into [facility] facility. Per patient's chest xray report there are no definite findings for active TB. He reports he is happy to be going to [facility]. Patient participated in HS snack and retired to bed. Does not appear to be having difficulty sleeping. S/I, H/I: Denies A/VH: Denies Sleep: Refer to sleep assessment ADL's: Independent Group attendance: No groups this shift Were meds taken: Yes Any med S/E: None observed or reported Mental Status Exam Appearance: Neat, clean and appropriately dressed Eye contact: Good Behavior: Socializing with peers and staff Speech: Clear, minimal, audible Mood: Euthymic Affect: Constricted Thought process: Circumstantial Thought Content: Discharge to [facility] Cognition: A&O X3 (not place) Insight: Poor Judgment: Fair Interventions PRN's used: None Therapeutic interventions: Introduced self and established rapport, ensured contract for safety, maintained a safe and therapeutic environment, provided clear and simple instructions, provided active listening and positive encouragement, and maintained a safe and therapeutic environment. Restraints/seclusion/emergency medication: N/A Justification of Continued Inpatient Treatment: Pt. continues to require interruption of current crisis, medication adjustments, and a safe and therapeutic environment.
[2019-07-24 07:00] VITALS: BP 154/95
[2019-07-24] MEDS: atorvastatin 20mg tablet PO SCH (07:55)
[2019-07-24] MEDS: aspirin 325mg tablet PO SCH (07:55)
[2019-07-24] MEDS: HYDROchlorothiazide 25mg tablet PO SCH (07:55)
[2019-07-24] MEDS: docusate sod 100mg capsule PO SCH ×2 (07:55→20:18)
[2019-07-24] MEDS: lisinopril 20mg tablet PO SCH ×2 (07:56→20:20)
[2019-07-24] MEDS: metFORMIN 500mg tablet PO SCH ×2 (07:56→17:11)
--- NOTE | 2019-07-24 10:00 | NUR ---
Group Therapy: Process Group This Clinicians goals for this process group were as follows: (1) Ask scaling questions about Patients current anxiety, depression, and irritability symptoms as a check-in. (2) Share psychoeducation about emotional escalation as it relates to stress and negative symptoms, Fight, flight, freeze. (3) Share psychoeducation on principles of mindfulness and emotional relaxation techniques that Patients may utilize to reduce the acuity of unwanted emotional escalation. (4) Provide psychoeducation on the STOPP acronym: Stop, Take a Breath, Observe the situation, Put things into perspective, and, Practice what works. (5) Process Clients thoughts and reflections on this topic within the group milieu. Patient identified experiencing the following levels of anxiety, depression, and anger/irritability while present in the group milieu. Anxiety: 03/01 Depression: 03/01 Anger irritability: 03/01 Patient presented as open and cooperative within the group milieu. He presented as verbally engaged, calm, and nonobtrusive within the group milieu. Patient reported that COVID-19 led to a disruption in his ability to attend regular AA meetings, which Patient reported has been a big social support for him in reducing unwanted levels of emotional escalation. He also shared that sometimes he needed to reach out to individuals when he was feeling emotionally escalated, sometimes calling people at 3:00 AM in the past. Patient reported that sometimes these attempts to reach out for help at late hours were not received well by others. This Clinician thanked Patient for this comment and encouraged all the Patients within the group milieu, to make attempts to identify safe, and supportive people who would be open and willing to assist them with their mental and emotional health needs when the situation arose. Cody Whiting MA, COMMAND AND CONTROL SYSTEMS INTEGRATOR Addendum: 07/25/19 at 0832 by Cody Whiting SS Amended: Links added.
[2019-07-24] MEDS ORDERED: TRAZ-251 PO (13:46)
[2019-07-24] MEDS ORDERED: ESCI5TAB PO (13:46)
[2019-07-24] MEDS ORDERED: LISI-600 PO (13:46)
--- NOTE | 2019-07-24 14:08 | NUR ---
Nursing Progress Note: Legal hold: Vol. Client on voluntary status for DTS Report received from nurse with use of SBAR: YAZMIN Ash Why are they here: Patient is a 79 y/o male who presented to the ED complaining of suicidal ideation, stating that he wants to end it all. Patient does not have a plan currently but reports that he is trying to figure out a way to do it. He was going to use a gun but states this was taken away from [him] a long time ago. He has one prior suicide attempt after the [place]. Patient was discharged from [facility] recently with plans for outpatient help but states this has not happened. 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 However, with COVID many meetings have been postponed to the detriment of his mental health r/t loneliness. Assessment What has happened this shift: Patient was asleep at change and up soon after. Patient was social speaking with staff and teasing. Patient spoke with daughter this morning and she agreed to be his POA. Patient was happy about that. Patient's belongings are being packed and moved by patient's friend Noel to his new place of living that is [facility]. Patient watched some T.V. and played cards by himself in the Community Room. Patient is ready to go. RN explained to patient that he will be locked down at his new place also. Patient is not happy about that. He will have someone giving him his medication because patient is not able to take his medication without help. Patient is doing well and knows he will be leaving tomorrow. S/I, H/I: Denies A/VH: Denies Sleep: Napped off and on ADL's: Requires some direction from staff Group attendance: Yes Were meds taken: Yes Any med S/E: None Mental Status Exam Appearance: Clean and neat in green scrubs. Eye contact: Direct. Behavior: Cooperative, pleasant, Speech: Soft, minimal Mood: Content Affect: Flat Thought process: Linear Thought Content: Looking forward to moving out of [place] Cognition: A&O X4 Insight: Fair Judgment: Fair Interventions PRN's used: Therapeutic interventions: Ensured contract for safety, maintained a safe and therapeutic environment, provided clear and simple instructions, provided positive encouragement, and maintained a safe and therapeutic environment. Restraints/seclusion/emergency medication: N/A Justification of Continued Inpatient Treatment: ENRIQUE Guerrero, pt. continues to require medication adjustments and a safe and therapeutic environment.
--- NOTE | 2019-07-24 16:42 | NUR ---
CM-DCP Presenting Issues: Pt will d/c Tuesday 07/25 and go directly to [facility]. Pt needs to give notice with current apartment, requests SS assistance to complete an Advance Healthcare Directive identifying dtr-Tran Mustafa as his healthcare decision maker. Pt also wants to complete a DPOA, giving dtTran gloria DPOA responsibilities. Interventions: Pt had t/c with dtr, SS joined discussion, per t/c, dtr accepted both responsibilities (Healthcare Decision Making & DPOA). SS reviewed both the Advance Healthcare Directive & the [place] D[place] documents with pt, pt made his choices to not prolong life, donate his organs after , dtr agreed to support pt's wishes, pt signed his Advance Directive, dtr's and neighbor signed as witnesses, 1 copy placed in pt's binder, original will go w/pt to assisted living facility. SS also reviewed the [place] DPOA with patient, pt indicated that he does not have any physical properties, only investment & bank accounts. Pt also wants dtr to have DPOA with re to his finances, dtr agreed to this, pt signed his DPOA, dtr signed and her portion and sent it to SS via e-mail she also e-mailed her address & contact info & witness statement for the Advance Healthcare Directive. SS had t/c w/Coleen @ [facility] to finalize dcp, per t/c pt will d/c Monday morning and [facility] will pick him up @ 10:30. Pt's friend will bring his checkbook, SS will assist pt in signing a check to pay for his rent @ [facility]. [facility] financial deputy clerk of superior court will come to the hospital tomorrow to go over the rental agreement & have pt sign them tomorrow and collect his first month rent. Plan: Pt to d/c Monday. SS will contact [place] tomorrow to coordinate dcp. Nguyen Bergman lCSW Addendum: 07/24/19 at 1658 by Nguyen ANAYA Amended: Links added.
[2019-07-24 19:47] VITALS: BP 167/92
[2019-07-24] MEDS: ESCITALOPRAM OXALATE 5 MG TABLET PO SCH (20:16)
--- NOTE | 2019-07-24 23:31 | NUR ---
Nursing Progress Note: Legal hold: VOL Client on voluntary status Report received from nurse with use of SBAR: Miguel ARCE Why are they here: Patient is a 79 y/o male who presented to the ED complaining of suicidal ideation, stating that he wants to end it all. Patient does not have a plan currently but reports that he is trying to figure out a way to do it. He was going to use a gun but states this was taken away from [him] a long time ago. He has one prior suicide attempt after the [place] War. Patient was discharged from [facility] recently with plans for outpatient help but states this has not happened. 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 However, with COVID many meetings have been postponed to the detriment of his mental health r/t loneliness. Assessment What has happened this shift: Patient observed talking and laughing with peers. He is pleasant and makes some delusional statements. "I will be your guardian and your protector." Pt is observed dancing happily with a peer. He denies AH/VH/SI/HI at this time. He is medication compliant. S/I, H/I: Denies A/VH: Denies Sleep: Refer to sleep assessment ADL's: Independent Group attendance: No groups this shift Were meds taken: Yes Any med S/E: None observed or reported Mental Status Exam Appearance: Neat, clean and appropriately dressed Eye contact: Good Behavior: Socializing with peers and staff Speech: Clear, minimal, audible Mood: Euthymic Affect: Constricted Thought process: Circumstantial Thought Content: Discharge to [facility] Cognition: A&O X3 (not place) Insight: Poor Judgment: Fair Interventions PRN's used: None Therapeutic interventions: Introduced self and established rapport, ensured contract for safety, maintained a safe and therapeutic environment, provided clear and simple instructions, provided active listening and positive encouragement, and maintained a safe and therapeutic environment. Restraints/seclusion/emergency medication: N/A Justification of Continued Inpatient Treatment: Pt. continues to require interruption of current crisis, medication adjustments, and a safe and therapeutic environment.
[2019-07-25] MEDS: aspirin 325mg tablet PO SCH (08:18)
[2019-07-25] MEDS: HYDROchlorothiazide 25mg tablet PO SCH (08:18)
[2019-07-25] MEDS: metFORMIN 500mg tablet PO SCH ×2 (08:18→17:41)
[2019-07-25] MEDS: atorvastatin 20mg tablet PO SCH (08:18)
[2019-07-25] MEDS: lisinopril 20mg tablet PO SCH ×2 (08:18→20:46)
[2019-07-25] MEDS: docusate sod 100mg capsule PO SCH ×2 (08:18→20:45)
[2019-07-25 08:36] VITALS: BP 152/77
--- NOTE | 2019-07-25 11:06 | NUR ---
Nursing Progress Note: Legal hold: Vol Client on voluntary status for DTS Report received from nurse with use of SBAR: YAZMIN Ash Why are they here: Patient is a 79 y/o male who presented to the ED complaining of suicidal ideation, stating that he wants to end it all. Patient does not have a plan currently but reports that he is trying to figure out a way to do it. He was going to use a gun but states this was taken away from [him] a long time ago. He has one prior suicide attempt after the [place] War. Patient was discharged from [facility] recently with plans for outpatient help but states this has not happened. 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 However, with YOSSIID many meetings have been postponed to the detriment of his mental health r/t loneliness. Assessment What has happened this shift: Pt states, "my life is good, my problems are [place]." Pt is to be discharged to [facility] living tomorrow. The financial travel clerk from [employer] came and had pt sign the rental agreement and provide the check for the 1st month's rent today. Pt expressed gratitude for our assistance here especially from his SW. He also expressed gratitude for having good friends, the support of , and the involvement of his daughter in his life. Pt is looking forward to his new place. He states he has enough money to last 10 years, he's 79 and that should be good enough. S/I, H/I: Pt denies A/VH: Pt denies Sleep: Pt slept 6.25 hours last night per noc shift report, napped before lunch ADL's: Independent Group attendance: No, states he was busy signing paperwork for new place. Were meds taken: Yes Any med S/E: None noted or reported. Mental Status Exam Appearance: Clean, neat white haired elderly gentleman dressed in green hospital scrubs. Eye contact: Good Behavior: Pleasant, cooperative, socializes with staff and peers. Speech: Clear, audible. Mood: Excited/grateful about going to assisted living tomorrow. Affect: Full range, appropriate Thought process: Linear Thought Content: Looking forward to going to [facility] living tomorrow, grateful for help and support he has received. Cognition: A/O X4 Insight: Good Judgment: Good Interventions PRN's used: None Therapeutic interventions: 1:1 assessment, active listening, therapeutic conversation, ensured contract for safety, maintained a safe and therapeutic environment, provided positive encouragement, medication administration/education/monitoring, and maintained a safe and therapeutic environment. Restraints/seclusion/emergency medication: N/A Justification of Continued Inpatient Treatment: Pt's symptoms have improved, he denies depression and SI today. He is being discharged to an assisted living tomorrow.
[2019-07-25] MEDS ORDERED: ARIP2TAB20 PO (16:29)
[2019-07-25 19:46] VITALS: BP 139/78
[2019-07-25] MEDS: ESCITALOPRAM OXALATE 5 MG TABLET PO SCH (20:49)
--- NOTE | 2019-07-25 22:27 | NUR ---
Nursing Progress Note: Legal hold: VOL Client on voluntary status Report received from nurse with use of SBAR: Edenilson ARCE Why are they here: Patient is a 79 y/o male who presented to the ED complaining of suicidal ideation, stating that he wants to end it all. Patient does not have a plan currently but reports that he is trying to figure out a way to do it. He was going to use a gun but states this was taken away from [him] a long time ago. He has one prior suicide attempt after the [place] War. Patient was discharged from [facility] recently with plans for outpatient help but states this has not happened. 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 However, with COVID many meetings have been postponed to the detriment of his mental health r/t loneliness. Assessment What has happened this shift: Patient is pleasant and seen interacting with peers at shift change. He goes to bed early right after snack. Pt remains happily confused, but does hold conversation well. He denies AH/VH/SI/HI at this time. He is medication compliant. S/I, H/I: Denies A/VH: Denies Sleep: Refer to sleep assessment ADL's: Independent Group attendance: No groups this shift Were meds taken: Yes Any med S/E: None observed or reported Mental Status Exam Appearance: Neat, clean and appropriately dressed Eye contact: Good Behavior: Socializing with peers and staff Speech: Clear, minimal, audible Mood: Euthymic Affect: Constricted Thought process: Circumstantial Thought Content: Discharge to [facility] Cognition: A&O X3 (not place) Insight: Poor Judgment: Fair Interventions PRN's used: None Therapeutic interventions: Introduced self and established rapport, ensured contract for safety, maintained a safe and therapeutic environment, provided clear and simple instructions, provided active listening and positive encouragement, and maintained a safe and therapeutic environment. Restraints/seclusion/emergency medication: N/A Justification of Continued Inpatient Treatment: Pt. continues to require interruption of current crisis, medication adjustments, and a safe and therapeutic environment.
[2019-07-26 07:00] VITALS: BP 126/89
[2019-07-26 08:01] VITALS: BP_SYST 126
[2019-07-26] MEDS: lisinopril 20mg tablet PO SCH (08:01)
[2019-07-26] MEDS: docusate sod 100mg capsule PO SCH (08:01)
[2019-07-26] MEDS: metFORMIN 500mg tablet PO SCH (08:01)
[2019-07-26] MEDS: aspirin 325mg tablet PO SCH (08:01)
[2019-07-26] MEDS: HYDROchlorothiazide 25mg tablet PO SCH (08:01)
[2019-07-26] MEDS: atorvastatin 20mg tablet PO SCH (08:01)
--- NOTE | 2019-07-26 08:24 | NUR ---
Discharge Presenting Issues: Pt's been accepted for placement @ [facility] and will be picked up this morning @ 10:30 by the facility's trolley coach driver. Interventions: SS met w/pt provided assistance for pt to sign his check to pay first month's rent for his apartment @ [facility]. Wanda RN informed of planned d/c. Nguyen Bergman REHABILITATION PROGRAM COORDINATOR Addendum: 07/26/19 at 0827 by Nguyen ANAYA Amended: Links added.
--- NOTE | 2019-07-26 10:41 | NUR ---
DISCHARGE NOTE: Pt discharged at 1025. He was picked up by a bus sent from [facility] which will be his new residence. RX's were faxed to [facility], all belongings were returned. Pt denied SI. Pt expressed understanding of his discharge instructions.
== END 2019-07-26 10:25 | DRG 885 ==
LOC: ADULT MH 22:57
PROVIDERS: ADMIT Psychiatry & Neurology Psychiatry; ATTEND Psychiatry & Neurology Psychiatry
DX: F33.2 Major depressive disorder, recurrent severe without psychotic features (principal); R45.851 Suicidal ideations; Z68.41 Body mass index [BMI] 40.0-44.9, adult; E11.9 Type 2 diabetes mellitus without complications; E78.00 Pure hypercholesterolemia, unspecified; E78.5 Hyperlipidemia, unspecified; E66.9 Obesity, unspecified; F03.90 Unspecified dementia, unspecified severity, without behavioral disturbance, psychotic disturbance, mood disturbance, and anxiety; F41.9 Anxiety disorder, unspecified; I10 Essential (primary) hypertension; I25.10 Atherosclerotic heart disease of native coronary artery without angina pectoris; I25.2 Old myocardial infarction; Z82.49 Family history of ischemic heart disease and other diseases of the circulatory system; Z87.891 Personal history of nicotine dependence; Z95.0 Presence of cardiac pacemaker; Z95.5 Presence of coronary angioplasty implant and graft
CPT/HCPCS: 71045; 87081; Q0177

== ENCOUNTER 2020-08-30 22:28 | Emergency (ER) | payer OTHER, MEDICARE ==
[~2020-08-30] VITALS: Ht 177.8 cm; Wt 109.1 kg
[~2020-08-30 22:28] MED LIST changes: +ARIP2TAB20 PO; -LISI-600 PO; +LISI20TA28 PO
[2020-08-30 23:07] LABS: BASOPHILS % (AUTO) 0.5 % (0-1); EOSINOPHILS # (AUTO) 0.2 X10'3 (0-0.9); EOSINOPHILS % (AUTO) 2.2 % (0-6); HEMATOCRIT 44.4 % (42.0-52.0); HEMOGLOBIN 15.2 g/dl (14.0-17.9); LYMPHOCYTES # (AUTO) 1.8 X10'3 (1.1-4.8); LYMPHOCYTES % (AUTO) 23.8 % (21-51); MEAN CORPUSCULAR HEMOGLOBIN 29.5 PG (27.0-31.0); MEAN CORPUSCULAR HGB CONC 34.3 g/dL (33.0-36.5); MEAN CORPUSCULAR VOLUME 85.9 FL (78-98); MEAN PLATELET VOLUME 8.2 FL (7.4-10.4); MONOCYTES # (AUTO) 0.8 X10'3 (0-0.9); MONOCYTES % (AUTO) 10.5 % (2-12); NEUTROPHILS # (AUTO) 4.7 X10'3 (1.8-7.7); PLATELET COUNT 221 X10'3 (140-440); RED BLOOD COUNT 5.16 X10'6 (4.70-6.10); RED CELL DISTRIBUTION WIDTH 13.8 % (11.5-14.5); WHITE BLOOD COUNT 7.4 X10'3 (4.5-11.0)
[2020-08-30 23:21] LABS: ALANINE AMINOTRANSFERASE 27 U/L (12-78); ALBUMIN 4.2 G/DL (3.4-5.0); ALBUMIN/GLOBULIN RATIO 1.3 (1.1-1.5); ALKALINE PHOSPHATASE 64 IU/L (46-116); ANION GAP 10 (8-16); ASPARTATE AMINO TRANSFERASE 21 U/L (10-37); BILIRUBIN,TOTAL 0.6 MG/DL (0.1-1.0); BLOOD UREA NITROGEN 17 MG/DL (7-18); BUN/CREATININE RATIO 13.6 (5.4-32.0); CALCIUM 8.7 MG/DL (8.5-10.1); CHLORIDE 102 MMOL/L (99-107); CREATININE 1.25 MG/DL (0.60-1.10); ETHANOL < 0.010 GM/DL (0.0-0.010); GLUCOSE 115 MG/DL (70-104); POTASSIUM 3.3 MMOL/L (3.5-5.1); SODIUM 140 MMOL/L (135-145); TOTAL CARBON DIOXIDE 28.2 MMOL/L (24-32); TOTAL PROTEIN 7.4 G/DL (6.4-8.2); eGFR 56 ML/MIN
[2020-08-31] MEDS ORDERED: LORazepam 1 MG tablet PO ONE ×2 (01:20→10:25)
--- NOTE | 2020-08-31 04:08 | NUR ---
Patient does not know his medications or the dosages, stating that the facility where he lives manages all of that for him.
[2020-08-31 10:20] LABS: CLARITY,URINE CLEAR (Clear); COLOR,URINE STRAW (Yellow); GLUCOSE, URINE NEGATIVE (Neg); KETONES,URINE NEGATIVE (Neg); LEUKOCYTE ESTERASE ,URINE NEGATIVE (Neg); NITRITES, URINE NEGATIVE (Neg); OCCULT BLOOD,URINE NEGATIVE (Neg); PH,URINE 6.5 (4.8-8.0); PROTEIN,URINE NEGATIVE (Neg); UROBILINOGEN,URINE 0.2 E.U/dL (0.2-1.0)
--- NOTE | 2020-08-31 10:20 | NUR ---
PT HAVING INCREASED ANXIETY. PT WONDERING IN HALLWAY. INFORMED DR. YANES. PLEASE SEE NEW ORDERS.
[2020-08-31 10:29] LABS: UA COLLECTION TYPE CLN CATCH MIDSTREAM
[2020-08-31 10:33] LABS: URINE AMPHETAMINE SCREEN NEGATIVE (Neg); URINE BARBITUATE SCREEN NEGATIVE (Neg); URINE BENZODIAZEPINES SCREEN NEGATIVE (Neg); URINE CANNABINOID SCREEN NEGATIVE (Neg); URINE COCAINE SCREEN NEGATIVE (Neg); URINE METHADONE SCREEN NEGATIVE (Neg); URINE OPIATE SCREEN NEGATIVE (Neg); URINE PHENCYCLIDINE SCREEN NEGATIVE (Neg)
--- NOTE | 2020-08-31 13:45 | NUR ---
PT BROUGHT TO ROOM 25. PT ORIENTATED TO ENVIRONMENT.
--- NOTE | 2020-08-31 15:14 | NUR ---
PT SEEN BY [facility] CLERK [address] ON [address].
[2020-08-31] MEDS ORDERED: SERT25TA PO (17:34)
[2020-08-31] MEDS ORDERED: ACET-1008 PO (17:34)
[2020-08-31] MEDS ORDERED: QUET25TA PO (17:34)
[2020-08-31] MEDS ORDERED: acetaminophen 325mg tablet PO PRN (18:05)
[2020-08-31] MEDS ORDERED: traZODone 50mg tablet PO PRN (18:05)
[2020-08-31 18:16] LABS: ACETAMINOPHEN < 2.0 UG/ML (10-30)
--- NOTE | 2020-08-31 18:30 | NUR ---
The patient up at the desk and reporting that he is very anxious. He is ambulating back and forth in front of the nursing station restlessly. One to one with the patient to assess severity of depressive symptoms and self harm risk. The patient appears sad. He stated that he is depressed and stated that he continues to feel suicidal. Psychotic symptoms are denied and none were evident on assessment. He reports, "I want to calmly and have it all over"
[2020-08-31] MEDS ORDERED: LORazepam 0.5 MG tablet PO PRN (18:45)
[2020-08-31] MEDS: QUEtiapine 25mg tablet PO SCH (20:20)
[2020-08-31] MEDS: lisinopril 20mg tablet PO SCH (20:20)
--- NOTE | 2020-08-31 21:19 | NUR ---
The patient appears to be sleeping at this time.
--- NOTE | 2020-08-31 23:52 | NUR ---
The patient appears to be sleeping
--- NOTE | 2020-09-01 01:56 | NUR ---
The patient appears to be sleeping
--- NOTE | 2020-09-01 03:29 | NUR ---
The patient appears to be sleeping
--- NOTE | 2020-09-01 05:01 | NUR ---
The patient appears to be sleeping
[2020-09-01 06:04] VITALS: BP_DIAS 64
--- NOTE | 2020-09-01 07:00 | NUR ---
Received pt asleep in bed in no apparent distress.
[2020-09-01] MEDS ORDERED: metFORMIN 500mg tablet PO SCH (07:30)
[2020-09-01] MEDS ORDERED: HYDROchlorothiazide 25mg tablet PO SCH (08:00)
[2020-09-01] MEDS ORDERED: atorvastatin 20mg tablet PO SCH (08:00)
[2020-09-01] MEDS ORDERED: sertraline 50mg tablet PO SCH (08:00)
[2020-09-01] MEDS ORDERED: aspirin 325mg tablet PO SCH (08:00)
[2020-09-01 08:11] VITALS: BP_SYST 101
[2020-09-01] MEDS: lisinopril 20mg tablet PO SCH (08:11)
[2020-09-01] MEDS: QUEtiapine 25mg tablet PO SCH ×2 (08:12→14:23)
--- NOTE | 2020-09-01 09:00 | NUR ---
Pt awoke around 0800. Pt cooperative with am blood glucose check: 123, and am assessment. Pt sat up to eat breakfast and after using the restroom, pt returned to sleep.
--- NOTE | 2020-09-01 11:00 | NUR ---
Pt remains lying quietly in bed, appearing to be sleeping.
--- NOTE | 2020-09-01 13:00 | NUR ---
pt lying in bed with eyes closed in no apparent distress.
== END 2020-09-01 14:55 ==
LOC: ER 22:29
DX: R45.851 Suicidal ideations (principal); Z20.822 Contact with and (suspected) exposure to COVID-19; F41.9 Anxiety disorder, unspecified; F32.9 Major depressive disorder, single episode, unspecified; F03.90 Unspecified dementia, unspecified severity, without behavioral disturbance, psychotic disturbance, mood disturbance, and anxiety; E78.00 Pure hypercholesterolemia, unspecified; I10 Essential (primary) hypertension; I25.2 Old myocardial infarction; E11.9 Type 2 diabetes mellitus without complications; Z87.01 Personal history of pneumonia (recurrent); Z95.0 Presence of cardiac pacemaker; Z79.82 Long term (current) use of aspirin; Z79.899 Other long term (current) drug therapy
CPT/HCPCS: 36415; 80053; 80305; 80320; 80329; 81003; 82948; 85025; 87635; 99285; C9803

== ENCOUNTER 2020-10-12 14:33 | Emergency (ER) | payer OTHER, BC ==
[~2020-10-12] VITALS: Ht 177.8 cm; Wt 113.6 kg
[~2020-10-12 14:33] MED LIST changes: +ACET-1008 PO; -ARIP2TAB20 PO; +ASPI-1071 PO; -ASPI-1264 PO; -DOCU-148 PO; -ESCI5TAB PO; -SENN-263 PO; +SERT-434 PO
[2020-10-12 15:38] LABS: BASOPHILS % (AUTO) 0.4 % (0-1); EOSINOPHILS # (AUTO) 0.2 X10'3 (0-0.9); EOSINOPHILS % (AUTO) 2.9 % (0-6); HEMATOCRIT 45.1 % (42.0-52.0); HEMOGLOBIN 15.2 g/dl (14.0-17.9); LYMPHOCYTES # (AUTO) 1.5 X10'3 (1.1-4.8); LYMPHOCYTES % (AUTO) 24.6 % (21-51); MEAN CORPUSCULAR HEMOGLOBIN 29.1 PG (27.0-31.0); MEAN CORPUSCULAR HGB CONC 33.8 g/dL (33.0-36.5); MEAN CORPUSCULAR VOLUME 86.3 FL (78-98); MEAN PLATELET VOLUME 7.7 FL (7.4-10.4); MONOCYTES # (AUTO) 0.7 X10'3 (0-0.9); MONOCYTES % (AUTO) 11.1 % (2-12); NEUTROPHILS # (AUTO) 3.8 X10'3 (1.8-7.7); PLATELET COUNT 203 X10'3 (140-440); RED BLOOD COUNT 5.22 X10'6 (4.70-6.10); RED CELL DISTRIBUTION WIDTH 13.7 % (11.5-14.5); WHITE BLOOD COUNT 6.3 X10'3 (4.5-11.0)
[2020-10-12 15:53] LABS: ALANINE AMINOTRANSFERASE 34 U/L (12-78); ALBUMIN 3.7 G/DL (3.4-5.0); ALBUMIN/GLOBULIN RATIO 1.1 (1.1-1.5); ALKALINE PHOSPHATASE 69 IU/L (46-116); ANION GAP 9 (8-16); ASPARTATE AMINO TRANSFERASE 21 U/L (10-37); BILIRUBIN,TOTAL 0.6 MG/DL (0.1-1.0); BLOOD UREA NITROGEN 13 MG/DL (7-18); BUN/CREATININE RATIO 10.9 (5.4-32.0); CALCIUM 8.8 MG/DL (8.5-10.1); CHLORIDE 104 MMOL/L (99-107); CREATININE 1.19 MG/DL (0.60-1.10); GLUCOSE 96 MG/DL (70-104); POTASSIUM 3.3 MMOL/L (3.5-5.1); SODIUM 143 MMOL/L (135-145); TOTAL CARBON DIOXIDE 29.7 MMOL/L (24-32); TOTAL PROTEIN 7.1 G/DL (6.4-8.2); eGFR 59 ML/MIN
--- NOTE | 2020-10-12 16:31 | NUR ---
CALLLED PT FRIEND AT [phone] CHARLENE FOR RIDE BACK HOME ,NOT RECIVED ANY CALL ,CALL TAXI FOR THE PT AND PT IV REMOVED ,INFORMED THE SCREENER TO KEEP PT IN LOBBY UNTIL HIS RIDE COMES TO PICK HIM UP.
[2020-10-12 16:33] VITALS: BP 141/87
== END 2020-10-12 16:35 | disposition left against medical advice (07) ==
LOC: ER 14:33
DX: R07.89 Other chest pain (principal); R42 Dizziness and giddiness; E78.00 Pure hypercholesterolemia, unspecified; I10 Essential (primary) hypertension; I25.2 Old myocardial infarction; E11.9 Type 2 diabetes mellitus without complications; Z87.01 Personal history of pneumonia (recurrent); F03.91 Unspecified dementia, unspecified severity, with behavioral disturbance; Z79.82 Long term (current) use of aspirin; Z79.899 Other long term (current) drug therapy
CPT/HCPCS: 36415; 71045; 80053; 84484; 85025; 93005; 99285

== ENCOUNTER 2020-11-13 02:38 | Emergency (ER) | payer OTHER, BC ==
[~2020-11-13] VITALS: Ht 177.8 cm; Wt 113.6 kg
[2020-11-13 02:46] VITALS: BP 142/86
== END 2020-11-13 03:26 | disposition home or self-care (01) ==
LOC: ER 02:39
DX: R07.89 Other chest pain (principal); F03.91 Unspecified dementia, unspecified severity, with behavioral disturbance; E78.00 Pure hypercholesterolemia, unspecified; I10 Essential (primary) hypertension; I25.2 Old myocardial infarction; Z95.0 Presence of cardiac pacemaker; Z87.01 Personal history of pneumonia (recurrent); Z79.82 Long term (current) use of aspirin; Z79.899 Other long term (current) drug therapy
CPT/HCPCS: 99281

== ENCOUNTER 2020-12-26 09:59 | Inpatient (IN) | payer OTHER, MEDICARE ==
[~2020-12-26] VITALS: Ht 177.8 cm; Wt 113.6 kg
[2020-12-26] MEDS ORDERED: normal saline 1000ML IV soln IV ONE (10:35)
[2020-12-26 11:33] LABS: BASOPHILS % (AUTO) 0.7 % (0-1); EOSINOPHILS # (AUTO) 0.2 X10'3 (0-0.9); EOSINOPHILS % (AUTO) 2.8 % (0-6); HEMOGLOBIN 14.6 g/dl (14.0-17.9); LYMPHOCYTES % (AUTO) 16.3 % (21-51); MEAN CORPUSCULAR HEMOGLOBIN 29.7 PG (27.0-31.0); MEAN CORPUSCULAR HGB CONC 34.8 g/dL (33.0-36.5); MEAN CORPUSCULAR VOLUME 85.5 FL (78-98); MEAN PLATELET VOLUME 7.9 FL (7.4-10.4); MONOCYTES # (AUTO) 0.9 X10'3 (0-0.9); MONOCYTES % (AUTO) 14.4 % (2-12); NEUTROPHILS # (AUTO) 4.1 X10'3 (1.8-7.7); NEUTROPHILS % (AUTO) 65.8 % (42-75); PLATELET COUNT 170 X10'3 (140-440); RED BLOOD COUNT 4.92 X10'6 (4.70-6.10); RED CELL DISTRIBUTION WIDTH 13.6 % (11.5-14.5); WHITE BLOOD COUNT 6.2 X10'3 (4.5-11.0)
[2020-12-26 11:36] LABS: ALANINE AMINOTRANSFERASE 24 U/L (12-78); ALBUMIN 3.3 G/DL (3.4-5.0); ALBUMIN/GLOBULIN RATIO 1.1 (1.1-1.5); ALKALINE PHOSPHATASE 66 IU/L (46-116); ANION GAP 9 (8-16); ASPARTATE AMINO TRANSFERASE 16 U/L (10-37); BILIRUBIN,TOTAL 0.7 MG/DL (0.1-1.0); BLOOD UREA NITROGEN 11 MG/DL (7-18); BUN/CREATININE RATIO 8.5 (5.4-32.0); CALCIUM 8.5 MG/DL (8.5-10.1); CHLORIDE 100 MMOL/L (99-107); CREATININE 1.29 MG/DL (0.60-1.10); GLUCOSE 114 MG/DL (70-104); MAGNESIUM 1.6 MG/DL (1.5-2.4); POTASSIUM 3.2 MMOL/L (3.5-5.1); SODIUM 136 MMOL/L (135-145); TOTAL PROTEIN 6.4 G/DL (6.4-8.2); eGFR 54 ML/MIN
[2020-12-26 12:01] LABS: CLARITY,URINE CLEAR (Clear); COLOR,URINE YELLOW (Yellow); GLUCOSE, URINE NEGATIVE (Neg); KETONES,URINE TRACE mg/dl (Neg); LEUKOCYTE ESTERASE ,URINE NEGATIVE (Neg); NITRITES, URINE NEGATIVE (Neg); OCCULT BLOOD,URINE NEGATIVE (Neg); PROTEIN,URINE NEGATIVE (Neg); UA COLLECTION TYPE OTHER; UROBILINOGEN,URINE 0.2 E.U/dL (0.2-1.0)
--- NOTE | 2020-12-26 12:59 | NUR ---
Called [facility], it is an assisted living and not set up for 24/ care.
[2020-12-26] MEDS ORDERED: CASIRIVIMAB/IMDEVIMAB inject. 10 ML in normal saline 100ml IV soln 100 ML IV ONE (13:00)
[2020-12-26] MEDS ORDERED: glucagon, human recombinant 1mg kit SUBCUT PRN (13:20)
[2020-12-26] MEDS ORDERED: dextrose 50%-water 50ml dispensing syringe IV PRN ×2 (13:20)
[2020-12-26] MEDS ORDERED: MESSAGE TO PHARMACY PO ONE (13:20)
[2020-12-26] MEDS ORDERED: morphine 2 MG/ML inj. syringe IV PRN ×2 (13:20)
[2020-12-26] MEDS ORDERED: insulin Lispro (HumaLOG) vial - multi-dose SQ SCH (13:20)
[2020-12-26] MEDS ORDERED: magnesium hydroxide 30ml (MOM) UD suspension PO PRN (13:20)
[2020-12-26] MEDS ORDERED: dextrose ORAL solution 15 GM/59 ML bottle PO PRN ×2 (13:20)
[2020-12-26] MEDS ORDERED: ondansetron/PF 4mg/2ml inj IV PRN (13:20)
[2020-12-26] MEDS ORDERED: acetaminophen 325mg tablet PO PRN ×2 (13:20)
[2020-12-26] MEDS ORDERED: mag hydrox/Alum hydrox/simeth 30ml oral suspension PO PRN (13:20)
[2020-12-26 14:01] LABS: HEMOGLOBIN A1C 6.2 % (4.5-6.2)
--- NOTE | 2020-12-26 15:24 | NUR ---
Patient in room ORTHO 4018. I have received report from YAZMIN GOMEZ FROM ER and had the opportunity to ask questions and assume patient care.
[2020-12-26] MEDS: normal saline 1000ml 1,000 ML IV SCH (15:41)
[2020-12-26 16:00] VITALS: BP 127/84
[2020-12-26 18:00] VITALS: BP 142/76
--- NOTE | 2020-12-26 18:00 | NUR ---
Patient in room ORTHO 4014. I have received report from Kassandra ARCE and had the opportunity to ask questions and assume patient care. Addendum: 12/27/20 at 0705 by Tomeka Somers RN Amended: Links added.
--- NOTE | 2020-12-26 18:45 | NUR ---
Problems reprioritized. Patient report given, questions answered & plan of care reviewed with YAZMIN SWEENEY.
--- NOTE | 2020-12-26 18:55 | NUR ---
Pt. awake alert to own name and place but not on the current events. Pt. very anxious continously out of bed and standing at the door way. Pt. states, " I want to ." Reassured pt. that he is safe here and that we will be looking out for him. Pt. verbalized understanding. Addendum: 12/26/20 at 1900 by Tomeka Somers RN Amended: Links added.
[2020-12-26 19:00] VITALS: BP 142/76
--- NOTE | 2020-12-26 19:27 | NUR ---
WHILE ASKING PATIENT ADMISSION QUESTIONS, PATIENT STATED HE WANTED TO END IT ALL. INQUIRED ABOUT THESE FEELINGS, PATIENT STATED HE KNEW HE NEEDED MORE HELP BUT DID NOT WANT HIS KIDS OR FRIEND TO HAVE TO CARE FOR HIM, DISCUSSED THAT THERE ARE OTHER OPTIONS SUCH [facility], PATIENT STATED HE WOULD BE OPEN TO THAT SITUATION. PAGED DR, CONSULT TO DIRECTOR OF ACADEMIC SUPPORT AND CASE MANAGEMENT PLACED. PATIENT STATED DURING TALK THAT HIS DR, DR WORKMAN IS WORRIED ABOUT HIM.
[2020-12-26] MEDS: insulin glargine (Lantus) pen - multi-dose SQ SCH (21:00)
[2020-12-26 22:00] VITALS: BP_SYST 129; BP_DIAS 58; BP_DIAS 60
[2020-12-26] MEDS ORDERED: ALPRAZolam 0.25mg tablet PO ONE (22:15)
[2020-12-26] MEDS: docusate sod 100mg capsule PO SCH (22:37)
[2020-12-26] MEDS: traZODone 50mg tablet PO PRN (22:37)
[2020-12-26] MEDS: lisinopril 20mg tablet PO SCH (22:40)
--- NOTE | 2020-12-27 01:31 | NUR ---
Order for [facility] obtained from Dr Souza at 01:30.
[2020-12-27] MEDS ORDERED: potassium Cl 40MEQ/1/2NS 520ml 520 ML IV PRN (01:45)
[2020-12-27] MEDS: potassium Cl 20 mEq SR tablet PO PRN ×4 (01:55→19:43)
[2020-12-27] MEDS: normal saline 1000ml 1,000 ML IV SCH ×3 (01:55→19:42)
[2020-12-27 02:00] VITALS: BP 129/60
[2020-12-27 06:00] VITALS: BP 125/68
--- NOTE | 2020-12-27 06:00 | NUR ---
Problems reprioritized. Patient report given, questions answered & plan of care reviewed with Shivani ARCE. Addendum: 12/27/20 at 0753 by Tomeka Somers RN Amended: Links added.
--- NOTE | 2020-12-27 06:56 | NUR ---
Patient in room ORTHO 4014B. I have received report from YAZMIN SWEENEY and had the opportunity to ask questions and assume patient care.
[2020-12-27 07:12] LABS: BASOPHILS % (AUTO) 0.5 % (0-1); EOSINOPHILS # (AUTO) 0.1 X10'3 (0-0.9); EOSINOPHILS % (AUTO) 1.5 % (0-6); HEMATOCRIT 39.2 % (42.0-52.0); HEMOGLOBIN 13.8 g/dl (14.0-17.9); LYMPHOCYTES # (AUTO) 1.4 X10'3 (1.1-4.8); LYMPHOCYTES % (AUTO) 20.4 % (21-51); MEAN CORPUSCULAR HEMOGLOBIN 30.2 PG (27.0-31.0); MEAN CORPUSCULAR HGB CONC 35.3 g/dL (33.0-36.5); MEAN CORPUSCULAR VOLUME 85.5 FL (78-98); MEAN PLATELET VOLUME 8.3 FL (7.4-10.4); MONOCYTES % (AUTO) 14.5 % (2-12); NEUTROPHILS # (AUTO) 4.3 X10'3 (1.8-7.7); NEUTROPHILS % (AUTO) 63.1 % (42-75); PLATELET COUNT 154 X10'3 (140-440); RED BLOOD COUNT 4.58 X10'6 (4.70-6.10); RED CELL DISTRIBUTION WIDTH 13.5 % (11.5-14.5); WHITE BLOOD COUNT 6.8 X10'3 (4.5-11.0)
[2020-12-27 07:21] LABS: ALBUMIN 3.1 G/DL (3.4-5.0); ANION GAP 6 (8-16); BLOOD UREA NITROGEN 11 MG/DL (7-18); BUN/CREATININE RATIO 9.9 (5.4-32.0); CALCIUM 8.1 MG/DL (8.5-10.1); CHLORIDE 104 MMOL/L (99-107); CREATININE 1.11 MG/DL (0.60-1.10); GLUCOSE 122 MG/DL (70-104); MAGNESIUM 1.9 MG/DL (1.5-2.4); POTASSIUM 3.4 MMOL/L (3.5-5.1); SODIUM 136 MMOL/L (135-145); TOTAL CARBON DIOXIDE 25.9 MMOL/L (24-32); eGFR 64 ML/MIN
[2020-12-27] MEDS: lisinopril 20mg tablet PO SCH ×2 (08:02→19:43)
[2020-12-27] MEDS: docusate sod 100mg capsule PO SCH ×2 (08:02→19:42)
[2020-12-27] MEDS: atorvastatin 20mg tablet PO SCH (08:02)
[2020-12-27] MEDS: HYDROchlorothiazide 25mg tablet PO SCH (08:02)
[2020-12-27] MEDS: sertraline 50mg tablet PO SCH (08:02)
[2020-12-27] MEDS: enoxaparin 40mg/0.4ml syringe SUBCUT SCH (08:03)
[2020-12-27] MEDS: K and/or MAG REPLACEMENT MC SCH ×2 (08:13→20:00)
--- NOTE | 2020-12-27 09:07 | NUR ---
Malnutrition consult: Pt admitted from previous facility w/ Covid and increasing confusion per EMR. Per MST pt states recent wt loss of 14-23lb and decreased appetite. Current wt not scaled though shows 15kg wt loss from scaled wt in June 2019. More recent admits show consistent wt though also not scaled. Pt consumed ~75% of first meal on CCHO diet, no edema present. At this time, pt does not meet minimum criteria for malnutrition. Pt may benefit from liberalizing to Regular diet given A1C 6.2. Will continue to monitor. Addendum: 12/27/20 at [address] Amended: Links added.
--- NOTE | 2020-12-27 12:01 | NUR ---
Page Sent PAGER ID: [phone] MESSAGE: PETRONA [id number] RE: BELLA MIJARES [id number] PT'S BLOOD CULTURE CAME BACK POSITIVE. ANAEROBIC GRAM+ COCCI & CLUSTERS.
[2020-12-27] MEDS ORDERED: guaiFENesin/DM 10ml UD oral syrup PO PRN (12:45)
--- NOTE | 2020-12-27 18:37 | NUR ---
Problems reprioritized. Patient report given, questions answered & plan of care reviewed with YAZMIN SRINIVASAN.
[2020-12-27] MEDS: traZODone 50mg tablet PO PRN (19:43)
[2020-12-27 20:00] VITALS: BP 128/69
[2020-12-27] MEDS: insulin glargine (Lantus) pen - multi-dose SQ SCH (21:00)
[2020-12-27 22:00] VITALS: BP 130/66
[2020-12-28 02:00] VITALS: BP 108/69
[2020-12-28 07:00] VITALS: BP 144/67
--- NOTE | 2020-12-28 07:01 | NUR ---
Patient in room ORTHO 4014. I have received report from Magaly RN and had the opportunity to ask questions and assume patient care.
[2020-12-28 07:15] LABS: BASOPHILS % (AUTO) 0.4 % (0-1); EOSINOPHILS # (AUTO) 0.4 X10'3 (0-0.9); EOSINOPHILS % (AUTO) 7.1 % (0-6); HEMOGLOBIN 13.4 g/dl (14.0-17.9); LYMPHOCYTES # (AUTO) 1.1 X10'3 (1.1-4.8); LYMPHOCYTES % (AUTO) 21.9 % (21-51); MEAN CORPUSCULAR HEMOGLOBIN 29.7 PG (27.0-31.0); MEAN CORPUSCULAR HGB CONC 34.5 g/dL (33.0-36.5); MEAN CORPUSCULAR VOLUME 86.2 FL (78-98); MEAN PLATELET VOLUME 7.7 FL (7.4-10.4); MONOCYTES # (AUTO) 0.6 X10'3 (0-0.9); NEUTROPHILS % (AUTO) 59.6 % (42-75); PLATELET COUNT 151 X10'3 (140-440); RED BLOOD COUNT 4.53 X10'6 (4.70-6.10)
[2020-12-28 07:28] LABS: ALBUMIN 3.1 G/DL (3.4-5.0); ANION GAP 11 (8-16); BLOOD UREA NITROGEN 9 MG/DL (7-18); BUN/CREATININE RATIO 9.1 (5.4-32.0); CALCIUM 8.1 MG/DL (8.5-10.1); CHLORIDE 106 MMOL/L (99-107); CREATININE 0.99 MG/DL (0.60-1.10); GLUCOSE 113 MG/DL (70-104); POTASSIUM 3.7 MMOL/L (3.5-5.1); SODIUM 143 MMOL/L (135-145); TOTAL CARBON DIOXIDE 26.2 MMOL/L (24-32); eGFR 73 ML/MIN
[2020-12-28] MEDS: docusate sod 100mg capsule PO SCH ×2 (07:44→19:58)
[2020-12-28] MEDS: enoxaparin 40mg/0.4ml syringe SUBCUT SCH (07:45)
[2020-12-28] MEDS: sertraline 50mg tablet PO SCH (07:45)
[2020-12-28] MEDS: HYDROchlorothiazide 25mg tablet PO SCH (07:45)
[2020-12-28] MEDS: lisinopril 20mg tablet PO SCH ×2 (07:45→20:01)
[2020-12-28] MEDS: atorvastatin 20mg tablet PO SCH (07:45)
[2020-12-28] MEDS: normal saline 1000ml 1,000 ML IV SCH ×3 (07:50→17:28)
[2020-12-28] MEDS: K and/or MAG REPLACEMENT MC SCH ×2 (08:00→20:00)
[2020-12-28 10:00] VITALS: BP 134/74
--- NOTE | 2020-12-28 12:52 | NUR ---
PAGER ID: [phone] MESSAGE: Silva [phone] Re: Minnie PT ambulated patients 150' with walker and 150' without walker, O2 sats 90-95% have not seen social service or case management social worker please call
[2020-12-28 14:00] VITALS: BP 140/78
--- NOTE | 2020-12-28 16:42 | NUR ---
Tona with [facility] called and stated that MAGDA will evaluate tomorrow and they will call and advised when to get the computer. Tona phone number is [phone]
[2020-12-28 18:30] VITALS: BP 167/85
--- NOTE | 2020-12-28 18:40 | NUR ---
Problems reprioritized. Patient report given, questions answered & plan of care reviewed with Magaly ARCE.
[2020-12-28] MEDS: traZODone 50mg tablet PO PRN (20:38)
[2020-12-28] MEDS: insulin glargine (Lantus) pen - multi-dose SQ SCH (21:00)
[2020-12-28 21:45] VITALS: BP 141/72
[2020-12-29 02:00] VITALS: BP 169/111
[2020-12-29] MEDS: normal saline 1000ml 1,000 ML IV SCH (04:00)
[2020-12-29 06:00] VITALS: BP 161/86
--- NOTE | 2020-12-29 06:33 | NUR ---
Patient in room [facility] 4014A. I have received report from YAZMIN SRINIVASAN and had the opportunity to ask questions and assume patient care.
[2020-12-29 07:36] LABS: BASOPHILS % (AUTO) 0.3 % (0-1); EOSINOPHILS # (AUTO) 0.3 X10'3 (0-0.9); EOSINOPHILS % (AUTO) 5.9 % (0-6); HEMATOCRIT 38.8 % (42.0-52.0); HEMOGLOBIN 13.4 g/dl (14.0-17.9); MEAN CORPUSCULAR HEMOGLOBIN 29.7 PG (27.0-31.0); MEAN CORPUSCULAR HGB CONC 34.4 g/dL (33.0-36.5); MEAN CORPUSCULAR VOLUME 86.1 FL (78-98); MONOCYTES # (AUTO) 0.5 X10'3 (0-0.9); MONOCYTES % (AUTO) 8.9 % (2-12); NEUTROPHILS # (AUTO) 3.7 X10'3 (1.8-7.7); NEUTROPHILS % (AUTO) 66.9 % (42-75); PLATELET COUNT 164 X10'3 (140-440); RED BLOOD COUNT 4.51 X10'6 (4.70-6.10); RED CELL DISTRIBUTION WIDTH 13.6 % (11.5-14.5); WHITE BLOOD COUNT 5.5 X10'3 (4.5-11.0)
[2020-12-29] MEDS: enoxaparin 40mg/0.4ml syringe SUBCUT SCH (07:37)
[2020-12-29] MEDS: sertraline 50mg tablet PO SCH (07:40)
[2020-12-29] MEDS: atorvastatin 20mg tablet PO SCH (07:40)
[2020-12-29] MEDS: HYDROchlorothiazide 25mg tablet PO SCH (07:41)
[2020-12-29] MEDS: lisinopril 20mg tablet PO SCH (07:41)
[2020-12-29] MEDS: docusate sod 100mg capsule PO SCH (07:41)
[2020-12-29] MEDS: K and/or MAG REPLACEMENT MC SCH (08:00)
[2020-12-29 08:32] LABS: ALBUMIN 3.2 G/DL (3.4-5.0); ANION GAP 8 (8-16); BLOOD UREA NITROGEN 7 MG/DL (7-18); BUN/CREATININE RATIO 7.4 (5.4-32.0); CALCIUM 8.2 MG/DL (8.5-10.1); CHLORIDE 106 MMOL/L (99-107); CREATININE 0.95 MG/DL (0.60-1.10); GLUCOSE 110 MG/DL (70-104); MAGNESIUM 1.8 MG/DL (1.5-2.4); POTASSIUM 3.3 MMOL/L (3.5-5.1); SODIUM 143 MMOL/L (135-145); TOTAL CARBON DIOXIDE 28.6 MMOL/L (24-32); eGFR 76 ML/MIN
[2020-12-29 10:00] VITALS: BP 145/76
[2020-12-29 13:29] LABS: URINE AMPHETAMINE SCREEN NEGATIVE (Neg); URINE BARBITUATE SCREEN NEGATIVE (Neg); URINE BENZODIAZEPINES SCREEN NEGATIVE (Neg); URINE CANNABINOID SCREEN NEGATIVE (Neg); URINE COCAINE SCREEN NEGATIVE (Neg); URINE METHADONE SCREEN NEGATIVE (Neg); URINE OPIATE SCREEN NEGATIVE (Neg); URINE PHENCYCLIDINE SCREEN NEGATIVE (Neg)
[2020-12-29 14:00] VITALS: BP 167/92
--- NOTE | 2020-12-29 14:16 | NUR ---
Initial: Pt admit for acute increased weakness and confusion, possibly r/t COVID infection per H&P. Pt currently on a CHO controlled diet and eating well with mostly 100% PO intake throughout LOS. Noted pt with h/o T2DM, well controlled with A1c 6.2%, currently on hyperglycemic protocol though no insulin has been administered since admit given BG levels well controlled. Attempted TC to RN with recommendation for diet liberalization to regular however RN unavailable, message left with another RN. LBM 12/28. No nutrition intervention implemented at this time. Will continue to follow. Recommendations: 1) Advance to regular diet in view of geriatric age, A1c 6.2%, and BG levels well controlled 2) Monitor need for additional protein for satiety 3) Routine bowel care 4) Scaled weight this admit; weekly scaled weights thereafter Addendum: 12/29/20 at [address] Amended: Links added.
[2020-12-29] MEDS: potassium Cl 20 mEq SR tablet PO PRN (15:12)
--- NOTE | 2020-12-29 16:45 | NUR ---
DC INSTRUCTIONS GIVEN, QUESTIONS ANSWERED. IV REMOVED NO COMPLICATIONS BANDAGE APPLIED, TELE MONITOR REMOVED. AIDE ASSISTED PT WITH DRESSING. WHEELED DOWN TO PRIVATE VEHICLE IN STABLE CONDITION.
== END 2020-12-29 16:45 | disposition home or self-care (01) | DRG 177 ==
LOC: ER 10:00 → ORTHO 4S 13:19
PROVIDERS: ADMIT Internal Medicine; ATTEND Internal Medicine
DX: U07.1 COVID-19 (principal); G93.41 Metabolic encephalopathy; R45.851 Suicidal ideations; E11.9 Type 2 diabetes mellitus without complications; F32.A Depression, unspecified; E78.00 Pure hypercholesterolemia, unspecified; F41.9 Anxiety disorder, unspecified; E87.6 Hypokalemia; G47.00 Insomnia, unspecified; E78.5 Hyperlipidemia, unspecified; F03.90 Unspecified dementia, unspecified severity, without behavioral disturbance, psychotic disturbance, mood disturbance, and anxiety; Z60.2 Problems related to living alone; I10 Essential (primary) hypertension; I25.2 Old myocardial infarction; Z79.84 Long term (current) use of oral hypoglycemic drugs; Z79.899 Other long term (current) drug therapy; Z82.49 Family history of ischemic heart disease and other diseases of the circulatory system
CPT/HCPCS: 36415; 70450; 71045; 80048; 80053; 80305; 81003; 82948; 83036; 83605; 83735; 83880; 84145; 85025; 87040; 87077; 87081; 87186; 87635; 93005; 96360; 97116; 97161; 97530; 99285; C9803; G0378; J1650; J1815; J7030; M0243; Q0244

== ENCOUNTER 2021-07-17 10:40 | Emergency (ER) | payer OTHER, MEDICARE ==
[~2021-07-17] VITALS: Ht 177.8 cm; Wt 90.9 kg
[~2021-07-17 10:40] MED LIST changes: -ASPI-1071 PO
[2021-07-17 11:07] LABS: BASOPHILS % (AUTO) 0.5 % (0-1); EOSINOPHILS # (AUTO) 0.2 X10'3 (0-0.9); EOSINOPHILS % (AUTO) 2.9 % (0-6); HEMATOCRIT 43.7 % (42.0-52.0); HEMOGLOBIN 15.1 g/dl (14.0-17.9); LYMPHOCYTES # (AUTO) 1.4 X10'3 (1.1-4.8); LYMPHOCYTES % (AUTO) 20.3 % (21-51); MEAN CORPUSCULAR HEMOGLOBIN 29.3 PG (27.0-31.0); MEAN CORPUSCULAR HGB CONC 34.6 g/dL (33.0-36.5); MEAN CORPUSCULAR VOLUME 84.8 FL (78-98); MEAN PLATELET VOLUME 7.6 FL (7.4-10.4); MONOCYTES # (AUTO) 0.6 X10'3 (0-0.9); MONOCYTES % (AUTO) 8.9 % (2-12); NEUTROPHILS # (AUTO) 4.6 X10'3 (1.8-7.7); NEUTROPHILS % (AUTO) 67.4 % (42-75); PLATELET COUNT 171 X10'3 (140-440); RED BLOOD COUNT 5.15 X10'6 (4.70-6.10); RED CELL DISTRIBUTION WIDTH 13.4 % (11.5-14.5); WHITE BLOOD COUNT 6.8 X10'3 (4.5-11.0)
[2021-07-17 11:20] LABS: ALANINE AMINOTRANSFERASE 18 U/L (12-78); ALBUMIN 3.6 G/DL (3.4-5.0); ALBUMIN/GLOBULIN RATIO 1.2 (1.1-1.5); ALKALINE PHOSPHATASE 58 IU/L (46-116); ANION GAP 8 (8-16); ASPARTATE AMINO TRANSFERASE 15 U/L (10-37); BILIRUBIN,TOTAL 0.5 MG/DL (0.1-1.0); BLOOD UREA NITROGEN 21 MG/DL (7-18); CHLORIDE 102 MMOL/L (99-107); CREATININE 1.31 MG/DL (0.60-1.10); GLUCOSE 118 MG/DL (70-104); SODIUM 139 MMOL/L (135-145); TOTAL CARBON DIOXIDE 29.5 MMOL/L (24-32); TOTAL PROTEIN 6.6 G/DL (6.4-8.2); eGFR 53 ML/MIN
[2021-07-17 11:34] LABS: ETHANOL < 0.010 GM/DL (0.0-0.010)
--- NOTE | 2021-07-17 18:00 | NUR ---
PT SPEAKING WITH DAUGHTER ON PHONE
--- NOTE | 2021-07-17 18:18 | NUR ---
MEAL TRAY PROVIDED FOR PT.
--- NOTE | 2021-07-17 18:28 | NUR ---
REPORT TO YAZMIN OLIVARES
--- NOTE | 2021-07-17 18:30 | NUR ---
ASSUMED CARE OF PT. PT SITTING ON SIDE OF BED EATING DINNER.
--- NOTE | 2021-07-17 19:30 | NUR ---
REMOVED TRAY FROM ROOM. PT WENT ON THE GURNEY TO SLEEP. I ASKED IF HE COULD GIVE ME A URINE SAMPLE. HE STATES HE DOES NOT WANT TO URINATE YET. WILL ASK AGAIN LATER.
--- NOTE | 2021-07-17 20:30 | NUR ---
PT SLEEPING ON HIS LEFT SIDE. EQUAL RISE AND FALL OF CHEST.
[2021-07-17 21:43] LABS: URINE AMPHETAMINE SCREEN NEGATIVE (Neg); URINE BARBITUATE SCREEN NEGATIVE (Neg); URINE BENZODIAZEPINES SCREEN NEGATIVE (Neg); URINE CANNABINOID SCREEN NEGATIVE (Neg); URINE COCAINE SCREEN NEGATIVE (Neg); URINE METHADONE SCREEN NEGATIVE (Neg); URINE OPIATE SCREEN NEGATIVE (Neg); URINE PHENCYCLIDINE SCREEN NEGATIVE (Neg)
--- NOTE | 2021-07-17 21:48 | NUR ---
PT WALKED TO BATHROOM, HAD A BM, AND PROVIDED A URINE SAMPLE. HE REQUESTED BASIC HYGIENE UTILITIES. PROVIDED PT WITH A KIT. HE BRUSHED TEETH IN ROOM SINK AND WENT BACK TO BED.
--- NOTE | 2021-07-17 22:30 | NUR ---
PT SLEEPING ON HIS SIDE. EQUAL RISE AND FALL OF CHEST.
--- NOTE | 2021-07-17 23:30 | NUR ---
Note mona in ED - 07/18/21 at 0158 by [email or web address] PT SLEEPING ON HIS SIDE. EQUAL RISE AND FALL OF CHEST.
--- NOTE | 2021-07-18 00:30 | NUR ---
PT SLEEPING ON HIS BACK. EQUAL RISE AND FALL OF CHEST.
--- NOTE | 2021-07-18 01:00 | NUR ---
PT POLITELY REQUESTED SOMETHING TO EAT. PROVIDED WITH A SANDWICH. PT ATE AND WENT BACK TO BED.
--- NOTE | 2021-07-18 01:30 | NUR ---
PT SLEEPING ON HIS BACK. EQUAL RISE AND FALL OF CHEST.
--- NOTE | 2021-07-18 02:30 | NUR ---
PT SLEEPING ON HIS SIDE. EQUAL RISE AND FALL OF CHEST.
--- NOTE | 2021-07-18 03:30 | NUR ---
PT SLEEPING. EQUAL RISE AND FALL OF CHEST.
--- NOTE | 2021-07-18 04:30 | NUR ---
PT GOT UP TO USE THE BATHROOM AND THEN WALKED TO HIS BED. PT BACK IN BED, SLEEPING ON HIS SIDE. EQUAL RISE AND FALL OF CHEST.
--- NOTE | 2021-07-18 05:27 | NUR ---
PT SLEEPING EQUAL RISE AND FALL OF CHEST.
--- NOTE | 2021-07-18 07:00 | NUR ---
Pt is awake. Agrees to not harm himself while in our care.
[2021-07-18] MEDS ORDERED: SERT150C PO (07:50)
[2021-07-18] MEDS ORDERED: OMEG1CAP2 PO (07:50)
[2021-07-18] MEDS ORDERED: ASPI-1071 PO (07:50)
[2021-07-18] MEDS ORDERED: CHOL10006 PO (07:50)
[2021-07-18] MEDS ORDERED: MEMA10TA PO (07:50)
[2021-07-18] MEDS ORDERED: RIVA20TA PO (07:50)
[2021-07-18] MEDS ORDERED: acetaminophen 325mg tablet PO PRN (08:05)
--- NOTE | 2021-07-18 08:57 | NUR ---
Report given to YAZMIN Delgado in [facility].
[2021-07-18] MEDS: metFORMIN 500mg tablet PO SCH ×2 (10:01→18:22)
[2021-07-18] MEDS: memantine 5mg tablet PO SCH ×2 (10:01→20:11)
[2021-07-18] MEDS: sertraline 50mg tablet PO SCH (10:01)
[2021-07-18] MEDS: atorvastatin 20mg tablet PO SCH (10:02)
[2021-07-18] MEDS: aspirin 81mg, enteric-coated 1 TAB TABLET.DR PO SCH (10:02)
[2021-07-18] MEDS: HYDROchlorothiazide 25mg tablet PO SCH (10:04)
--- NOTE | 2021-07-18 11:10 | NUR ---
Patient ambulatory, steady gait, to BR. No distress observed. Continue to monitor.
--- NOTE | 2021-07-18 11:53 | NUR ---
Reginaldo BENAVIDES, evaluating patient. No distress observed. Continue to monitor.
--- NOTE | 2021-07-18 12:06 | NUR ---
Patient eating lunch. No distress observed. Continue to monitor.
--- NOTE | 2021-07-18 14:03 | NUR ---
Patient sleeping on right side. No distress observed. Continue to monitor.
--- NOTE | 2021-07-18 15:10 | NUR ---
Patient attempted to make a phone call. Left a message to call back. No distress observed. Continue to monitor.
--- NOTE | 2021-07-18 17:06 | NUR ---
Patient playing Solitare at his bedside. No distress observed. Continue to monitor.
[2021-07-18] MEDS: rivaroxaban 20mg tablet PO SCH (18:23)
--- NOTE | 2021-07-18 18:58 | NUR ---
Patient awake sitting at edge of bed playing solitaire, asked for prune juice then restroom. Pt reports a BM. Went back to bed to play cards. Filled water.
[2021-07-18] MEDS: traZODone 50mg tablet PO PRN (20:11)
[2021-07-18] MEDS: lisinopril 20mg tablet PO SCH (20:11)
--- NOTE | 2021-07-18 20:16 | NUR ---
Pt took evening medications W/O complications. BP 136/83 HR 60
--- NOTE | 2021-07-18 23:02 | NUR ---
Patient sitting up in bed playing solitaire.
--- NOTE | 2021-07-19 01:27 | NUR ---
Patient appears to be sleeping.
--- NOTE | 2021-07-19 03:17 | NUR ---
Ther patient appears to be sleeping
--- NOTE | 2021-07-19 05:22 | NUR ---
The patient appears to be sleeping.
--- NOTE | 2021-07-19 06:42 | NUR ---
Patient sleeping on left side with quiet snoring respirations. No distress observed. Continue to monitor.
[2021-07-19] MEDS: sertraline 50mg tablet PO SCH (07:57)
[2021-07-19] MEDS: atorvastatin 20mg tablet PO SCH (07:57)
[2021-07-19] MEDS: aspirin 81mg, enteric-coated 1 TAB TABLET.DR PO SCH (07:57)
[2021-07-19] MEDS: HYDROchlorothiazide 25mg tablet PO SCH (07:57)
[2021-07-19] MEDS: metFORMIN 500mg tablet PO SCH ×2 (07:57→17:55)
[2021-07-19] MEDS: memantine 5mg tablet PO SCH ×2 (07:58→20:02)
[2021-07-19] MEDS: lisinopril 20mg tablet PO SCH ×2 (07:58→20:03)
--- NOTE | 2021-07-19 08:11 | NUR ---
Patient eating breakfast. No distress observed. Continue to monitor.
--- NOTE | 2021-07-19 09:30 | NUR ---
Patient sleeping supine. No distress observed. Continue to monitor.
--- NOTE | 2021-07-19 10:04 | NUR ---
Patient continues to sleep supine. No distress observed. Continue to monitor.
--- NOTE | 2021-07-19 12:06 | NUR ---
Patient eating jello. Patient did not want his tray because he had a snack at 1100. No distress observed. Continue to monitor.
--- NOTE | 2021-07-19 13:04 | NUR ---
relieving RN for break, pt is sleeping, resp even and unlabored
--- NOTE | 2021-07-19 14:54 | NUR ---
Patient playing solitare in his room. No distress observed. Continue to monitor.
--- NOTE | 2021-07-19 16:47 | NUR ---
Patient reclining in bed and appears to be sleeping. No distress observed. Continue to monitor.
--- NOTE | 2021-07-19 17:23 | NUR ---
Patient continues to sleep. No distress observed. Continue to monitor.
[2021-07-19] MEDS: rivaroxaban 20mg tablet PO SCH (17:55)
--- NOTE | 2021-07-19 18:29 | NUR ---
Pt is eating dinner at change of shift. Pt reports some depression, but states he is "Ok". Pt states his dinner is good and playing cards after dinner.
[2021-07-19] MEDS: traZODone 50mg tablet PO PRN (20:03)
--- NOTE | 2021-07-19 20:13 | NUR ---
Pt took HS meds is currently laying in bed with eyes closed. RR 16
[2021-07-19] MEDS ORDERED: magnesium hydroxide 30ml (MOM) UD suspension PO ONE (21:45)
--- NOTE | 2021-07-19 21:49 | NUR ---
Pt awake playing [employer], states prune juice didnt help earlier. Pt was given MOM for constipation.
--- NOTE | 2021-07-19 23:02 | NUR ---
pt awake states he is hungry and cant sleep, would like a jello. Pt was given a sandwhich and applesauce.
--- NOTE | 2021-07-20 00:44 | NUR ---
pt requested another blanket and was provided with one, he is having trouble sleeping and doesnt know why. Pt declines offer for addtl medication for sleep.
--- NOTE | 2021-07-20 02:19 | NUR ---
Pt is asleep, snoring softly rr [id number] Addendum: 07/20/21 at 0219 by [email or web address] RR16
--- NOTE | 2021-07-20 03:39 | NUR ---
pt up to use the toilet and returned to bed
--- NOTE | 2021-07-20 06:31 | NUR ---
Patient sleeping supine with snoring respirations. No distress observed. Continue to monitor.
--- NOTE | 2021-07-20 08:10 | NUR ---
Patient awake and eating breakfast at the side of his bed. No dsitress observed. Continue to monitor.
[2021-07-20] MEDS: atorvastatin 20mg tablet PO SCH (08:20)
[2021-07-20] MEDS: memantine 5mg tablet PO SCH ×2 (08:20→19:45)
[2021-07-20] MEDS: HYDROchlorothiazide 25mg tablet PO SCH (08:21)
[2021-07-20] MEDS: lisinopril 20mg tablet PO SCH ×2 (08:21→19:45)
[2021-07-20] MEDS: sertraline 50mg tablet PO SCH (08:22)
[2021-07-20] MEDS: aspirin 81mg, enteric-coated 1 TAB TABLET.DR PO SCH (08:22)
[2021-07-20] MEDS: metFORMIN 500mg tablet PO SCH ×2 (08:22→18:08)
--- NOTE | 2021-07-20 10:13 | NUR ---
Patient sleeping supine. No distress observed. Continue to monitor.
--- NOTE | 2021-07-20 12:07 | NUR ---
Patient eating lunch. No distress observed. Continue to monitor.
--- NOTE | 2021-07-20 14:26 | NUR ---
Patient playing Solitair, no distress observed. Continue to monitor.
--- NOTE | 2021-07-20 16:10 | NUR ---
Meghana [facility], speaking with patient. Patient is not on a hold. Patient does not want to go home.
--- NOTE | 2021-07-20 17:00 | NUR ---
Patient will be going home after dinner. RN to call taxi. No distress observed. Continue to monitor.
--- NOTE | 2021-07-20 17:26 | NUR ---
Decision after 1700 to send patient home in a taxi. Patient does not want to go and has no belongings except his underwear. Patient did not bring his wallet and did not bring the templeton and badge to his apartment. RN attempted to call but no answer at [facility]. Even if patient could get in the building he does not have a templeton to his apartment. RN advised Meghana. Patient will need to be discharged tomorrow morning.
[2021-07-20] MEDS: rivaroxaban 20mg tablet PO SCH (18:08)
--- NOTE | 2021-07-20 19:17 | NUR ---
One to one with the patient to assess for severity of depressive symptoms and self harm risk. The patient is pleasant and friendly when approched. He stated his health is good but that he no longer wants to live. When asked about depression he stated, "I'm not a lot of that" but stated he still feels suicidal and added, "I just haven't been able to do it. I don't have my pistol anymore. I would like to end it...I've had a good life"
--- NOTE | 2021-07-20 20:18 | NUR ---
The patient appears to be sleeping
--- NOTE | 2021-07-20 22:34 | NUR ---
The patient appears to be sleeping
--- NOTE | 2021-07-20 23:40 | NUR ---
The patient awake and having a snack. He is pleasant and friendly
[2021-07-20] MEDS: traZODone 50mg tablet PO PRN (23:50)
--- NOTE | 2021-07-21 00:41 | NUR ---
The patient appears to be sleeping
--- NOTE | 2021-07-21 02:15 | NUR ---
The patient appears to be sleeping
--- NOTE | 2021-07-21 03:52 | NUR ---
The patient appears to be sleeping
--- NOTE | 2021-07-21 05:18 | NUR ---
The patient had difficulty falling asleep and received prn Trazodone and currently appears to be sleeping
--- NOTE | 2021-07-21 06:30 | NUR ---
Received report from YAZMIN Olivera. Patient observed sleeping on his left side at change of shift. Respirations even, unlabored. No s/s of distress. Will continue to monitor.
[2021-07-21 08:00] VITALS: BP_DIAS 62
--- NOTE | 2021-07-21 08:35 | NUR ---
Note mona in EDM - 07/21/21 at 1219 by LOURDES Patient was receptive to scheduled medication and 1:1 assessment. He was noted endorsing that he "didn't sleep well last night" and is "always kept up at night". Patient noted to be irritable that his peanut butter and jelly sandwich was made on white bread, therefore, patient refused most of his breakfast tray. He is noted quietly sitting in his room at this time. Will continue to monitor.
--- NOTE | 2021-07-21 08:35 | NUR ---
Patient awoke and was provided with a breakfast tray to his room. Patient was receptive to scheduled medication and 1:1 assessment. No complaints or s/s of distress noted. Patient observed quietly eating in his room.
[2021-07-21 08:49] VITALS: BP_SYST 118
[2021-07-21] MEDS: sertraline 50mg tablet PO SCH (08:49)
[2021-07-21] MEDS: atorvastatin 20mg tablet PO SCH (08:49)
[2021-07-21] MEDS: memantine 5mg tablet PO SCH (08:49)
[2021-07-21] MEDS: lisinopril 20mg tablet PO SCH (08:49)
[2021-07-21] MEDS: metFORMIN 500mg tablet PO SCH (08:49)
[2021-07-21] MEDS: HYDROchlorothiazide 25mg tablet PO SCH (08:49)
[2021-07-21] MEDS: aspirin 81mg, enteric-coated 1 TAB TABLET.DR PO SCH (08:49)
--- NOTE | 2021-07-21 10:30 | NUR ---
Patient noted lying supine in bed at this time. Respirations even, unlabored. Equal rise and fall of chest noted. Will continue to monitor.
--- NOTE | 2021-07-21 10:30 | NUR ---
Note tannerjaelyn in EDM - 07/21/21 at 1219 by LOURDES Patient observed ambulating to the restroom with a slow, steady gait. He retreated back to his room shortly after and is noted resting in bed at this time. No s/s of distress or complaints.
--- NOTE | 2021-07-21 12:30 | NUR ---
Patient observed playing a card game in his room at this time. He was provided with a lunch tray to his room. Patient is quiet, calm, and cooperative. No s/s of distress. Will continue to monitor.
[2021-07-21] MEDS ORDERED: docusate sod 100mg capsule PO ONE (13:10)
--- NOTE | 2021-07-21 13:18 | NUR ---
Patient endorsed thoughts of SI to this specifications writer. Patient noted stating that he "would go down the [place] by his house and get in front of a car" if he was to go home. He endorsed "just wanting to end it", however, "doesn't think he would have enough courage". Patient endorsing that his family worry about him and he doesn't want to upset them.
--- NOTE | 2021-07-21 14:30 | NUR ---
Patient observed sleeping supine in his room at this time. Noted rise and fall of chest. No s/s of distress. Will continue to monitor.
--- NOTE | 2021-07-21 15:39 | NUR ---
This verse writer spoke with home health care social worker at this time regarding discharge. Patient to be returning to [facility] this evening with a pending pick-up time of 1645. To be picked up by family member Noel Gaona.
--- NOTE | 2021-07-21 16:21 | NUR ---
Patient is noted sitting in his room playing cards while waiting for his ride to arrive. No s/s of distress. Will continue to monitor.
--- NOTE | 2021-07-21 16:46 | NUR ---
Patient discharged and escorted from unit at approximetly 1646. He is alert and oriented, calm and cooperative, with no s/s of distress. Discharge instructions reviewed with opportunity for all questions to be answered. He was ambulatory from the unit to the front of the hospital with a steady gait. Pt picked up by family member Noel Gaona for transportation back to his home at [facility]
== END 2021-07-21 16:46 ==
LOC: ER 10:42
DX: R45.851 Suicidal ideations (principal); E78.00 Pure hypercholesterolemia, unspecified; I10 Essential (primary) hypertension; I25.2 Old myocardial infarction; E11.9 Type 2 diabetes mellitus without complications; F41.9 Anxiety disorder, unspecified; F32.A Depression, unspecified; Z87.01 Personal history of pneumonia (recurrent); Z95.0 Presence of cardiac pacemaker; Z60.2 Problems related to living alone; Z79.899 Other long term (current) drug therapy
CPT/HCPCS: 36415; 80053; 80305; 80320; 82948; 84443; 85025; 99285

== ENCOUNTER 2021-11-02 08:19 | Emergency (ER) | payer OTHER, MEDICARE ==
[~2021-11-02] VITALS: Ht 177.8 cm; Wt 113.6 kg
[~2021-11-02 08:19] MED LIST changes: +ASPI-1071 PO; +CHOL10006 PO; +MEMA10TA PO; +OMEG1CAP2 PO; +RIVA20TA PO; -SERT-434 PO; +SERT150C PO
[2021-11-02] MEDS ORDERED: normal saline 1000ML IV soln IVB ONE (08:55)
[2021-11-02] MEDS ORDERED: cloNIDine 0.1 mg tablet PO ONE (09:25)
[2021-11-02 09:33] LABS: BASOPHILS % (AUTO) 0.5 % (0-1); EOSINOPHILS # (AUTO) 0.2 X10'3 (0-0.9); HEMATOCRIT 43.4 % (42.0-52.0); HEMOGLOBIN 14.7 g/dl (14.0-17.9); LYMPHOCYTES # (AUTO) 1.2 X10'3 (1.1-4.8); MEAN CORPUSCULAR HGB CONC 33.9 g/dL (33.0-36.5); MEAN CORPUSCULAR VOLUME 85.6 FL (78-98); MEAN PLATELET VOLUME 7.9 FL (7.4-10.4); MONOCYTES # (AUTO) 0.5 X10'3 (0-0.9); NEUTROPHILS # (AUTO) 3.7 X10'3 (1.8-7.7); NEUTROPHILS % (AUTO) 65.5 % (42-75); PLATELET COUNT 174 X10'3 (140-440); RED BLOOD COUNT 5.07 X10'6 (4.70-6.10); RED CELL DISTRIBUTION WIDTH 13.8 % (11.5-14.5); WHITE BLOOD COUNT 5.6 X10'3 (4.5-11.0)
[2021-11-02] MEDS ORDERED: metoprolol tartrate 1mg/ml inj IV ONE (10:05)
[2021-11-02 10:09] LABS: ALANINE AMINOTRANSFERASE 17 U/L (12-78); ALBUMIN 3.5 G/DL (3.4-5.0); ALBUMIN/GLOBULIN RATIO 1.1 (1.1-1.5); ALKALINE PHOSPHATASE 66 IU/L (46-116); ANION GAP 8 (8-16); ASPARTATE AMINO TRANSFERASE 14 U/L (10-37); BILIRUBIN,TOTAL 0.6 MG/DL (0.1-1.0); BLOOD UREA NITROGEN 13 MG/DL (7-18); BUN/CREATININE RATIO 13.3 (5.4-32.0); CALCIUM 8.6 MG/DL (8.5-10.1); CHLORIDE 104 MMOL/L (99-107); CREATININE 0.98 MG/DL (0.60-1.10); GLUCOSE 110 MG/DL (70-104); POTASSIUM 3.7 MMOL/L (3.5-5.1); SODIUM 140 MMOL/L (135-145); TOTAL CARBON DIOXIDE 27.6 MMOL/L (24-32); TOTAL PROTEIN 6.8 G/DL (6.4-8.2); eGFR 73 ML/MIN
[2021-11-02 10:15] LABS: CLARITY,URINE CLEAR (Clear); COLOR,URINE YELLOW (Yellow); GLUCOSE, URINE NEGATIVE (Neg); KETONES,URINE NEGATIVE (Neg); LEUKOCYTE ESTERASE ,URINE NEGATIVE (Neg); NITRITES, URINE NEGATIVE (Neg); OCCULT BLOOD,URINE NEGATIVE (Neg); PROTEIN,URINE NEGATIVE (Neg); UROBILINOGEN,URINE 0.2 E.U/dL (0.2-1.0)
[2021-11-02 10:22] LABS: UA COLLECTION TYPE URINAL
--- NOTE | 2021-11-02 11:57 | NUR ---
PATIENT IS DISCHARGED HOME. DC INSTRUCTIONS GIVEN TO PATIENT AND VERBALIZED UNDERSTANDING. PATIENT ATTEMPTING TO CALL FOR RIDE PER HIS CELL PHONE, WITHOUT SUCCESS. THIS NURSE PLACED CALL TO PATIENT'S DAUGHTER AND LEFT MESSAGE. IF FAMILY/FRIENS ARE UNABLE TO PICK HIM UP, TRANSPORTATION WILL BE ARRANGED PER CAB.
[2021-11-02 12:04] VITALS: BP 136/80
--- NOTE | 2021-11-02 12:33 | NUR ---
ED CALLED THE PT DAUGHTER AND LEFT A MESSAGE ABOUT THE PT BEING DC'd. PT WAS WHEELED OUT OF THE ED AT 1215. THEY WERE LEFT IN THE ROUND-ABOUT WITH THE VERBAL INSTRUCTIONS THAT A CAB IS COMING TO PICK THEM UP. PT VERBALIZED THEIR UNDERSTANDING OF THE TEACHINGS, AND STATED "THAT IT WAS POSSIBLE A FRIEND OF THEIRS WAS ALSO ON THEIR WAY TO PICK THEM UP". PT APPEARS TO BE IN NO DISTRESS, AND IS LEFT WAITING FOR THEIR RIDE.
== END 2021-11-02 12:07 | disposition home or self-care (01) ==
LOC: ER 08:20
DX: I10 Essential (primary) hypertension (principal); G30.1 Alzheimer's disease with late onset; F02.80 Dementia in other diseases classified elsewhere, unspecified severity, without behavioral disturbance, psychotic disturbance, mood disturbance, and anxiety; I11.9 Hypertensive heart disease without heart failure; E78.00 Pure hypercholesterolemia, unspecified; E11.9 Type 2 diabetes mellitus without complications; F31.9 Bipolar disorder, unspecified; Z79.82 Long term (current) use of aspirin; Z79.899 Other long term (current) drug therapy; Z79.84 Long term (current) use of oral hypoglycemic drugs
CPT/HCPCS: 36415; 70450; 71045; 80053; 81003; 83880; 84145; 84484; 85025; 93005; 96361; 96374; 99285; J3490; J7030; A4615; C1758